=== PATIENT | female | born 1975 | race Caucasian/White ===

== ENCOUNTER → 2017-11-18 12:19 | Outpatient (CLI) | payer MEDICARE, MEDICAID, SELFPAY ==
[2017-11-18 12:57] LABS: Basophils % 0.6 % (0.1-2.0); Eosinophils # 0.1 K/mm3 (0.0-0.4); Eosinophils % 1.3 % (0.1-12.0); Hemoglobin 12.8 g/dL (12.2-16.2); Lymphocytes % 31.5 K/mm3 (10-50); Mean Corpuscular HGB Conc 32.9 g/dL (31.8-35.4); Mean Corpuscular Hemoglobin 31.6 pg (27.0-31.2); Mean Corpuscular Volume 95.9 fl (81-99); Mean Platelet Volume 7.4 fl (7.4-10.4); Monocytes # 0.3 K/mm3 (0.1-1.0); Monocytes % 4.9 % (1.7-9.3); Neutrophils # 3.8 K/mm3 (1.8-7.8); Neutrophils % 61.8 % (37.0-80.0); Platelet Count 313 K/mm3 (142-424); Red Blood Count 4.07 M/mm3 (4.20-5.40); Red Cell Distribution Width 12.3 % (11.5-17.5); White Blood Count 6.2 K/mm3 (4.8-10.8)
[2017-11-18 14:02] LABS: Erythrocyte Sedimentation Rate 9 mm/hr (0-20)
[2017-11-18 14:24] LABS: Alanine Aminotransferase 25 U/L (12-78); Albumin Level 3.9 gm/dL (3.4-5.0); Alkaline Phosphatase 68 U/L (46-116); Anion Gap 12.5 mEq/L (5-15); Aspartate Amino Transferase 13 U/L (15-37); Bilirubin,Direct 0.1 mg/dL (0.0-0.2); Bilirubin,Indirect 0.2 mg/dL (0.0-0.9); Bilirubin,Total 0.3 mg/dL (0.2-1.0); Blood Urea Nitrogen 10 mg/dL (7-18); Calcium 9.3 mg/dL (8.5-10.1); Carbon Dioxide 29 mmol/L (21.0-32.0); Chloride 105 mmol/L (98-107); Chol/HDL Ratio 2.6 (1-3.5); Cholesterol 161 mg/dL (140-200); Creatinine,Serum 0.69 mg/dL (0.55-1.02); Estimated Glomerular Filt Rate 94 ml/min (>60); Free Thyroxine Index 2.8 ug/dL (5.93-13.13); GFR (African American) 113 ML/MIN (>60); Glucose 88 mg/dL (74-106); HDL Cholesterol 63 mg/dL (29-89); Potassium 4.5 mmoL/L (3.5-5.1); Sodium 142 mmol/L (136-145); T4 (Thyroxine) 8.5 ug/dl (4.7-13.3); Thyroid Stimulating Hormone 1.09 uIU/ml (0.358-3.740); Total Protein,Serum 7.2 gm/dL (6.4-8.2); Triiodothryronine (T3) Uptake 33 % (31-39); Uric Acid 3.1 mg/dL (2.6-7.2)
[2017-11-18 14:51] LABS: LDL Cholesterol 82 mg/dL (0-130); Triglycerides 80 mg/dL (30-200); VLDL Cholesterol 16 mg/dL (0-40)
[2017-11-19 13:12] LABS: Antichromatin Antibodies <0.2 AI (0.0-0.9); RNP Antibodies <0.2 AI (0.0-0.9); Sjogren's Anti-SS-A <0.2 AI (0.0-0.9); Sjogren's Anti-SS-B <0.2 AI (0.0-0.9)
[2017-11-20 13:20] LABS: Anti-DNA (DS) Ab Qn 1 IU/mL (0-9); RA Latex Turbid. 20.3 IU/mL (0.0-13.9)
[2017-11-20 13:21] LABS: Antinuclear Antibodies, IFA Negative (.)
== END ==
PROVIDERS: PCP Internal Medicine; Visit Provider Physician Assistant
DX: I25.110 Atherosclerotic heart disease of native coronary artery with unstable angina pectoris (principal); F17.200 Nicotine dependence, unspecified, uncomplicated; I10 Essential (primary) hypertension; R06.09 Other forms of dyspnea; R42 Dizziness and giddiness; R51 Headache; R94.31 Abnormal electrocardiogram [ECG] [EKG]; M06.9 Rheumatoid arthritis, unspecified
CPT/HCPCS: 36415; 80048; 80061; 80076; 84436; 84443; 84479; 84550; 85025; 85651; 86038; 86225; 86235; 86431

== ENCOUNTER → 2017-11-30 10:49 | Outpatient (CLI) | payer MEDICARE, MEDICAID, SELFPAY ==
--- NOTE | 2017-11-30 10:53 | CA_ITS ---
PROCEDURE: 2-D M-mode and color Doppler study INDICATIONS FOR THE TEST: Chest pain+ COPD Heart Murmur Tobacco Smoking+ Palpitations+ Fatigue+ Syncope Edema+ Hypertension+Diabetes Mellitus Rheumatic Fever SOB+VALDIVIA+Obesity Hyperlipidemia Family History HD+ Additional History dizziness, cad, Abn EKG PATIENT INFORMATION HEIGHT: 62 WEIGHT: 135 GENDER: Female B/P: 109/46 2-D/M-MODE INTERPRETATION: 2-D MEASUREMENTS OBSERVED VALUES IN CMS Right Ventricular Dimension (RVDd) 2.0 Interventricular Septum (Thickness)(IVsd) 0.8 Left Ventricular Internal Dimensions(LVIDd) 3.8 Left Ventricular Posterior Wall (Thickness)(LVPWd) 0.8 Aortic Root 2.3 Aortic Cusp Separation 1.8 Left Atrial Dimensions (LAD) 2.8 2D 1. Left atrium is normal size, left ventricle is normal size, there is no concentric left ventricular hypertrophy, visually estimated ejection fraction 55% with no regional wall motion abnormality. 2. The right atrium and right ventricle are normal size and contractility. 3. The aortic, mitral and tricuspid valvular grossly normal. 4. The pulmonic valve is poorly visualized. 5. No significant pericardial effusion noted. DOPPLER INTERROGATION: Doppler interrogation of the aortic, mitral and tricuspid valvular presence of mild mitral and tricuspid regurgitation, tricuspid regurgitation jet velocity is insufficient for calculation of the right ventricular systolic pressure, diastolic parameters are within normal range. CONCLUSION: 1. Normal left ventricular size, preserved left ventricular systolic function, visually estimated ejection fraction 55% with no regional wall motion abnormality, diastolic parameters are within normal range. 2. Mild mitral and tricuspid regurgitation 3. No significant pericardial effusion noted.
--- NOTE | 2017-11-30 10:54 | XR_ITS ---
XR hand RT min 3V HISTORY: Posttraumatic pain ITS.REASON: RT HAND INJURY WITH PAIN ORDERING PHYSICIAN: Eyal Matute MD PATIENT AGE: 42 years COMPARISON: 04/21/2011 FINDINGS: No fracture or dislocation. No lytic or blastic change. There is normal mineralization.. The joint spaces are well-preserved. No significant degenerative/arthritic changes. No erosive changes evident.. A small calcific density is present along the ulnar aspect of the DIP joint of the third digit. This was present on the previous study and may represent an old avulsion injury. IMPRESSION: No acute finding
== END ==
PROVIDERS: PCP Internal Medicine; Visit Provider Internal Medicine
DX: F17.200 Nicotine dependence, unspecified, uncomplicated (principal); I10 Essential (primary) hypertension; I20.9 Angina pectoris, unspecified; I25.110 Atherosclerotic heart disease of native coronary artery with unstable angina pectoris; R06.09 Other forms of dyspnea; R42 Dizziness and giddiness; R51 Headache; R94.31 Abnormal electrocardiogram [ECG] [EKG]
CPT/HCPCS: 73130; 93306

== ENCOUNTER → 2018-04-02 15:33 | Outpatient (CLI) | payer MEDICARE, MEDICAID, SELFPAY ==
--- NOTE | 2018-04-02 15:36 | MR_ITS ---
MR shoulder RT wo con CLINICAL INDICATION: Severe right shoulder pain with limited range of motion ITS.REASON: RIGHT ROTATOR CUFF TEAR ORDERING PHYSICIAN: Aime Atkinson PATIENT AGE: 42 years Comparison: None TECHNIQUE: Multiplanar multiecho sequences performed without contrast. FINDINGS: There is mild acromioclavicular arthropathy with hypertrophic changes of the acromioclavicular joint and subacromial stenosis. There is complete tear of the supraspinatus tendon with mild retraction and atrophy of the musculotendinous fibers. Fibers are retracted by approximately 16 mm in the mid to posterior aspect of the supraspinatus tendon. There may be a few intact fibers anteriorly. This however is questionable. There is also complete tear of the infraspinatus tendon with retraction of the musculotendinous fibers. Subcortical cystic changes involving the greater tuberosity. The subscapularis and teres minor tendons appear intact. The humeral head is slightly high writing within the glenoid fossa. Bicipital tendon is in place. A small amount fluid is present within the bicipital tendon sheath. No obvious labral tear. There is a small shoulder joint effusion. Small amount fluid is present in the infraclavicular region. IMPRESSION: 1. Complete tear of the supraspinatus and infraspinatus tendons with mild retraction of the musculotendinous fibers. 2. Fluid in the bicipital tendon sheath suggesting tendinitis 3. Small shoulder joint effusion
== END ==
PROVIDERS: PCP Internal Medicine; Visit Provider Internal Medicine
DX: M75.101 Unspecified rotator cuff tear or rupture of right shoulder, not specified as traumatic (principal)
CPT/HCPCS: 73221

== ENCOUNTER → 2018-04-19 10:40 | Outpatient (POV) | payer MEDICARE, MEDICAID, SELFPAY ==
--- NOTE | 2018-04-19 13:09 | XR_ITS ---
XR shoulder RT min 2V HISTORY: ITS.REASON: Rt shoulder pain ORDERING PHYSICIAN: Jaimie Bradford PATIENT AGE: 43 years Comparison: 04/02/2018 FINDINGS: No fracture or dislocation. No lytic or blastic change. There is normal mineralization. The joint spaces are well-preserved. Minimal cortical irregularity noted involving the humeral head at the greater tuberosity and may be seen with rotator cuff disease IMPRESSION: Cortical irregularity humeral head at the greater tuberosity which may be seen with rotator cuff disease otherwise negative
--- NOTE | 2018-04-19 13:09 | XR_ITS ---
XR ankle wt bearing LT min 3V HISTORY: ITS.REASON: foot and ankle pain ORDERING PHYSICIAN: Jamiie Bradford PATIENT AGE: 43 years Comparison: None FINDINGS: No fracture or dislocation. No lytic or blastic change. There is normal mineralization.. The joint spaces are well-preserved. No significant degenerative/arthritic changes. No erosive changes evident. IMPRESSION: Negative ankle, no acute finding
--- NOTE | 2018-04-19 13:09 | XR_ITS ---
XR foot wt bearing LT 3V HISTORY: ITS.REASON: foot and ankle pain ORDERING PHYSICIAN: Jaimie Bradford PATIENT AGE: 43 years COMPARISON: None FINDINGS: No fracture or dislocation. No lytic or blastic change. There is normal mineralization.. The joint spaces are well-preserved. No significant degenerative/arthritic changes. No erosive changes evident. There is flexion of the fourth and fifth toes at the distal phalanx IMPRESSION: No acute finding. Flexion of the fourth and fifth toes
--- NOTE | 2018-04-19 13:09 | XR_ITS ---
XR foot wt bearing RT 3V HISTORY: ITS.REASON: foot and ankle pain ORDERING PHYSICIAN: Jaimie Bradford PATIENT AGE: 43 years COMPARISON: None FINDINGS: No fracture or dislocation. No lytic or blastic change. There is normal mineralization.. The joint spaces are well-preserved. No significant degenerative/arthritic changes. No erosive changes evident. IMPRESSION: Negative, no acute finding
--- NOTE | 2018-04-19 13:09 | XR_ITS ---
XR ankle wt bearing RT min 3V HISTORY: ITS.REASON: foot and ankle pain ORDERING PHYSICIAN: Jaimie Bradford PATIENT AGE: 43 years Comparison: None FINDINGS: No fracture or dislocation. No lytic or blastic change. There is normal mineralization.. The joint spaces are well-preserved. No significant degenerative/arthritic changes. No erosive changes evident. IMPRESSION: Negative ankle, no acute finding
== END ==
PROVIDERS: PCP Internal Medicine; Visit Provider Nurse Practitioner Acute Care
DX: M25.579 Pain in unspecified ankle and joints of unspecified foot (principal); M79.671 Pain in right foot; M79.672 Pain in left foot; M25.511 Pain in right shoulder
CPT/HCPCS: 73030; 73610; 73630

== ENCOUNTER → 2018-06-15 06:23 | Outpatient (CLI) | payer MEDICARE, MEDICAID, SELFPAY ==
--- NOTE | 2018-06-15 06:28 | CA_ITS ---
PROCEDURE: 2-D M-mode and color Doppler study INDICATIONS FOR THE TEST: Chest pain X COPD Heart Murmur Tobacco SmokingX Palpitations Fatigue Syncope EdemaX HypertensionXDiabetes Mellitus Rheumatic Fever SOBXDOE Obesity Hyperlipidemia Family History HDX Additional History PRE OP EVAL PATIENT INFORMATION HEIGHT: 62 WEIGHT:134 GENDER: Female B/P:137/75 2-D/M-MODE INTERPRETATION: 2-D MEASUREMENTS OBSERVED VALUES IN CMS Right Ventricular Dimension (RVDd) 1.0 Interventricular Septum (Thickness)(IVsd) .9 Left Ventricular Internal Dimensions(LVIDd) 5.0 Left Ventricular Posterior Wall (Thickness)(LVPWd) .9 Aortic Root 3.0 Aortic Cusp Separation 1.2 Left Atrial Dimensions (LAD) 2.5 2D 1. Left atrium is qualitatively mildly enlarged, left ventricle is normal size, mild concentric left ventricular hypertrophy, visually estimated ejection fraction 55% with no regional wall motion abnormality. 2. The right atrium and right ventricle are normal size and contractility. 3. The aortic valve is minimally thickened and fibrosed. 4. The mitral and tricuspid valve are grossly normal. 5. The pulmonic valve is poorly visualized. 6. No significant pericardial effusion noted. DOPPLER INTERROGATION: Doppler interrogation of the aortic, mitral and tricuspid valvular presence of mild mitral and tricuspid regurgitation, tricuspid regurgitation jet velocity is inadequate for calculation of the right ventricular systolic pressure, grade 1 diastolic dysfunction seen without tissue Doppler evidence of raised left atrial pressure, inferior vena cava is normal size with normal inspiratory collapse. CONCLUSION: 1. Normal left ventricular size, mild concentric left ventricular hypertrophy, visually estimated ejection fraction 55% with no regional wall motion abnormality, grade 1 diastolic dysfunction seen without tissue Doppler evidence of raised left atrial pressure. 2. Mild mitral and tricuspid regurgitation, tricuspid regurgitation jet velocity is inadequate for calculation of the right ventricular systolic pressure, inferior vena cava is normal size with normal inspiratory collapse. 3. No significant pericardial effusion noted.
--- NOTE | 2018-06-15 06:31 | NM_ITS ---
CARDIOLITE SPECT MYOCARDIAL PERFUSION LEXISCAN, REST AND STRESS: History: Coronary artery disease, hypertension, tobacco use, family history, chest pain, shortness of breath and fatigue Procedure: Patient received a 0.4 mg of intravenous Lexiscan, resting heart rate was 60 bpm resting blood pressure 133/68, with Lexiscan maximum heart rate achieved was 88 bpm is less than 85% of the maximum predicted heart rate and a blood pressure was 115/53. With Lexiscan patient complained of chest pressure Electrocardiogram: Resting electrocardiogram showed sinus rhythm, with Lexiscan there is less than 1.[address] segment depression noted from the baseline EKG. The EKG portion of the Lexiscan Myoview is nondiagnostic. Cardiac stress and resting SPECT images: Cardiac stress and the suspect images were obtained using technetium 99 Myoview 31.4 mCi stress and 9.9 mCi at rest , gated SPECT further analysis of segmental wall motion and calculation of the ejection fraction also done. Cardiac stress and resting SPECT images show decreased tracer activity in the anterior and anteroseptal area. Some the resting images suggestive of reversible, computer derived ejection fraction is 61% with no regional wall motion abnormality, right ventricle with normal contractility. Conclusion: 1. The EKG portion of the Lexiscan Myoview is nondiagnostic. 2. Scintigraphic evidence of mild reversible ischemia involving the anterior and anteroseptal wall. Computer derived ejection fraction is 61% with no regional wall motion abnormality, right ventricle is normal size and contractility. 3. Abnormal Lexiscan Myoview study.
--- NOTE | 2018-06-15 07:40 | HMH.ITSHM ---
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 []NEXIUM LEXAPRO ASA LOSARTAN CORTALINE CLONAZEPAM BISOPROLOL HYDROCO/APAP ANPHETAMINE FUROSEMIDE
== END ==
PROVIDERS: PCP Internal Medicine; Visit Provider Internal Medicine
DX: F17.200 Nicotine dependence, unspecified, uncomplicated (principal); I10 Essential (primary) hypertension; I25.110 Atherosclerotic heart disease of native coronary artery with unstable angina pectoris; R06.09 Other forms of dyspnea; R07.89 Other chest pain; R20.0 Anesthesia of skin; R20.2 Paresthesia of skin; R42 Dizziness and giddiness; R60.9 Edema, unspecified; R94.31 Abnormal electrocardiogram [ECG] [EKG]; Z01.818 Encounter for other preprocedural examination
CPT/HCPCS: 78452; 93017; 93306; A9502; J2785

== ENCOUNTER 2019-08-18 15:09 | Emergency (ER) | payer MEDICARE, MEDICAID, SELFPAY ==
[2019-08-18 15:10] VITALS: BP 131/72; PULSE 92; RESP 22; TEMP 36.6; O2SAT 98; BMI 22.1
--- NOTE | 2019-08-18 15:17 | XR_ITS ---
PROCEDURE: XR CHEST PORTABLE CLINICAL HISTORY: chest pain Chest pain, smoker COMPARISON: CXR CHEST(2 VIEWS-NOT PORTABLE) from 07/30/2015 XR CHEST 2V from 03/25/2019 FINDINGS: The cardiomediastinal silhouette and pulmonary vascularity are within normal limits. The lungs are clear without infiltrates, suspicious nodules, or pleural effusions. There are mild degenerative changes in the shoulders IMPRESSION: No acute findings. Dictated by: Campos Galicia MD 08/18/2019 15:58 Electronically signed by Campos Galicia MD in [place] 08/18/2019 15:58
[2019-08-18 15:30] VITALS: BP 117/87; PULSE 82; O2SAT 100
[2019-08-18 15:30] LABS: Basophils # 0.1 K/mm3 (0-0.2); Basophils % 0.8 % (0.1-2.0); Eosinophils # 0.2 K/mm3 (0.0-0.4); Eosinophils % 1.1 % (0.1-12.0); Hematocrit 40.2 % (37.0-47.0); Hemoglobin 13.4 g/dL (12.2-16.2); Lymphocytes # 4.4 K/mm3 (0.7-4.5); Lymphocytes % 31.8 % (10-50); Mean Corpuscular HGB Conc 33.4 g/dL (31.8-35.4); Mean Corpuscular Volume 98.7 fl (81-99); Mean Platelet Volume 7.1 fl (7.4-10.4); Monocytes # 0.9 K/mm3 (0.1-1.0); Monocytes % 6.2 % (1.7-9.3); Neutrophils # 8.2 K/mm3 (1.8-7.8); Neutrophils % 60.1 % (37.0-80.0); Platelet Count 379 K/mm3 (142-424); Red Blood Count 4.08 M/mm3 (4.20-5.40); Red Cell Distribution Width 13.2 % (11.5-17.5); White Blood Count 13.7 K/mm3 (4.8-10.8)
[2019-08-18 15:31] LABS: Anion Gap 11.5 mEq/L (5-15); Blood Urea Nitrogen 9 mg/dl (7-17); Calcium 9.8 mg/dl (8.4-10.2); Carbon Dioxide 28 mmol/L (22.0-30.0); Chloride 96 mmol/L (98-107); Creatinine Clearance Estimated 93 mL/min (50-200); Estimated Glomerular Filt Rate 91 ml/min (>60); GFR (African American) 111 ML/MIN (>60); Glucose 91 mg/dl (74-100); Potassium 3.5 mmoL/L (3.5-5.1); Sodium 132 mmol/L (136-145)
[2019-08-18 15:44] LABS: Troponin I < 0.01 ng/ml (0.00-0.034)
--- NOTE | 2019-08-18 15:47 | ECG_ITS ---
APPROVED REPORT Exam: Resting ECG HR:92 bpm ECG Measurements Heart Rate 92 AXES UT 144 P 78 QRSd 84 QRS 43 QT 386 T 69 QTc 477 <Conclusion> Normal sinus rhythm Normal ECG Electronically signed by : Reji Moyer, 08/21/2019 07:15:51
--- NOTE | 2019-08-18 15:48 | PC.NURSE ---
Rad at bedside
--- NOTE | 2019-08-18 16:02 | HMH.EDCP ---
ED Disposition Clinical Impression: Stable angina Disposition: Home, Self-Care Condition on Discharge: Good Additional Instructions: Please follow-up with Dr. Matute in his office. Referrals: Aime Atkinson [Primary Care Provider] - - Critical Care Critical Care Time: No Attestation: On 08/18/19, the high probability of a clinically significant, sudden or life threatening deterioration of the following system(s) required my full and direct attention, intervention and personal management. The time I documented below is in addition to time spent performing reported procedures but includes the following listed in this critical care notation. Medical Decision Making - Medical Records Medical records reviewed: Yes: I reviewed the patient's medical records. - Gen Inquiry Pt receiving controlled substance: No Vital Signs: 08/18/19 15:10 08/18/19 15:30 08/18/19 16:10 Temperature 98 F Temperature Source Oral Pulse Rate [Left Radial] 92 H 82 89 Respiratory Rate 22 Blood Pressure [Right Arm] 131/72 117/87 116/56 L Blood Pressure Mean [Right Arm] 91 97 76 Blood Pressure Source [Right Arm] Automatic Cuff Automatic Cuff Blood Pressure Position [Right Arm] Sitting Sitting 02 Sat by Pulse Oximetry 98 100 100 Oxygen Delivery Method Room Air Room Air Room Air - Lab Data Lab results reviewed: Yes: I reviewed the patient's lab results. Lab Results 08/18/19 15:10: WBC 13.7 H, RBC 4.08 L, Hgb 13.4, Hct 40.2, MCV 98.7, MCH 33.0 H, MCHC 33.4, RDW 13.2, Plt Count 379, MPV 7.1 L, Neut % (Auto) 60.1, Lymph % (Auto) 31.8, [place] % (Auto) 6.2, Eos % (Auto) 1.1, Baso % (Auto) 0.8, Neut # (Auto) 8.2 H, Lymph # (Auto) 4.4, [place] # (Auto) 0.9, Eos # (Auto) 0.2, Baso # (Auto) 0.1 08/18/19 15:10: Sodium 132 L, Potassium 3.5, Chloride 96 L, Carbon Dioxide 28, Anion Gap 11.5, BUN 9, Creatinine 0.70, Estimated Creat Clear 93, Estimated GFR 91, Est GFR ( Amer) 111, Glucose 91, Calcium 9.8, Troponin I < 0.01 Result diagrams: 08/18/19 15:10 08/18/19 15:10 Orders (Tests/Meds): ED MEDICATIONS Discontinued Medications Generic Name Dose Route Start Last Admin Trade Name Bry PRN Reason Stop Dose Admin Aspirin 324 mg 08/18/19 15:18 08/18/19 15:25 Aspirin 81mg Chewable Tablet PO 08/18/19 15:19 324 mg ONCE ONE Administration ORDERS Category Date Time Status Troponin I Q3H Lab 08/18/19 18:30 Ordered Troponin I Q3H Lab 08/18/19 21:30 Ordered - Radiology Data #1 Image(s): Chest Preliminary Findings: Normal/NAD - ECG Data Tracing #1 I reviewed this ECG and interpreted as documented below: Normal Sinus Rhythm: Yes - CECY Score for Non-Stemi Age of Patient: 40-49 years old Heart Rate: 90-109 bpm Systolic Blood Pressure: <80 mmHg Serum Creatinine: 0.40-0.79 mg/dl CHF [place] Class: I-No CHF Other Risk Factors: None Non-Stemi Risk Score: 102 Risk Stratification: 1-108 = Low Risk Chest Pain HPI - General Chief Complaint: Chest Pain Stated Complaint: chest pain Time Seen by Provider: 08/18/19 16:00 Mode of Arrival: Ambulatory Source of Information: Patient Limitations: No Limitations Description of Symptoms (Recalled from ER Triage Doc. by RN): to ed per pvt car with c/o chest pressure since march. states I feel like my heart is racing and is going to beat out of my chest pt states has not seen MD for this due to insurance issues. pt c/o sob, nausea, states pain radiates to rt arm down to rt leg and toes. pt states pain worse with exertion and gets some relief with rest. pt appears anxious - History of Present Illness HPI narrative: 44-year-old female presents the ED with recurring chest pain. She states that the chest pains been going on for last 2 to 3 weeks. She also states that the pain is substernal and does not radiate. Patient also states that she did not complain of any shortness of breath or diaphoresis. She rates her pain 4 out of 10 describes a heaviness or
[2019-08-18 16:10] VITALS: BP 116/56; PULSE 89; O2SAT 100
--- NOTE | 2019-08-18 16:14 | PC.NURSE ---
Called for Dr. Carvajal, He is in a room per staff and will return call.
--- NOTE | 2019-08-18 16:41 | PC.NURSE ---
pt up to bathroom unsteady on feet.
--- NOTE | 2019-08-18 16:42 | PC.NURSE ---
Pt returned from [facility] and is reviewing med list at this time.
--- NOTE | 2019-08-18 16:46 | PC.NURSE ---
Dr Siegel speaking with Dr Carvajal
[2019-08-18 17:24] VITALS: BP 115/74; PULSE 78; RESP 16; TEMP 36.6; O2SAT 98
== END 2019-08-18 17:26 | disposition home or self-care (01) ==
PROVIDERS: Emergency Provider Family Medicine; PCP Internal Medicine
DX: I20.8 Other forms of angina pectoris (principal); F41.8 Other specified anxiety disorders; I25.10 Atherosclerotic heart disease of native coronary artery without angina pectoris; K21.9 Gastro-esophageal reflux disease without esophagitis; I10 Essential (primary) hypertension; M79.7 Fibromyalgia; F17.210 Nicotine dependence, cigarettes, uncomplicated; Z88.8 Allergy status to other drugs, medicaments and biological substances; Z79.899 Other long term (current) drug therapy
CPT/HCPCS: 71045; 80048; 84484; 85025; 93005; 99284

== ENCOUNTER → 2019-10-14 09:55 | Outpatient (CLI) | payer MEDICARE, OTHER, SELFPAY ==
--- NOTE | 2019-10-14 09:59 | CT_ITS ---
PROCEDURE: CT ABDOMEN PELVIS WO/W CON CLINICAL INDICATION: RUQ PAIN,HEMANGIOMA PROTOCOL Right upper quadrant pain, history of liver lesions COMPARISON: ABDPELW/WO CT ABD PELVIS W/WO CONTRAST from 01/08/2016 TECHNIQUE: IV Contrast: 75ML OPTIRAY 350 Oral Contrast None Axial images obtained with sagittal and coronal reformats. All CT scans at the facility use one or more dose reduction, viz: automated exposure control, ma/kV adjustment per patient size (including targeted exams where dose is matched to indication, i.e. head), or iterative reconstruction technique. FINDINGS: Exam is performed with meningioma protocol without and with contrast with dynamic imaging. Lung bases are clear. A 3 cm hypoattenuating lesion is present in the left hepatic lobe superiorly. An 8 mm hypodense lesion is present in the junction of the left and right hepatic lobe superiorly the margin of the largest lesion is somewhat irregular and there is some questionable minimal nodular peripheral enhancement. The lesions become less apparent over time consistent with hemangiomas overall not significantly changed. No new lesions are evident. The spleen, adrenal glands, pancreas, and kidneys have an unremarkable appearance. The stomach appears thickened but may be due to nondistention. No intestinal obstruction or free air. No evidence of appendicitis seen or diverticulitis. No intestinal obstruction or free air. There are post hysterectomy changes. There is a small amount fluid in the right aspect of the pelvis. No acute bony anomalies. IMPRESSION: 1. Overall no significant change with no acute finding. 2. No change in the 2 hepatic lesions consistent with hemangiomas. Dictated by: Campos Galiica MD 10/15/2019 08:19 Electronically signed by Campos Galicia MD in [place] 10/15/2019 08:19
== END ==
PROVIDERS: PCP Internal Medicine; Visit Provider Internal Medicine
DX: R10.11 Right upper quadrant pain (principal); D18.00 Hemangioma unspecified site
CPT/HCPCS: 74178; Q9967

== ENCOUNTER → 2019-12-14 10:37 | Outpatient (CLI) | payer MEDICARE, OTHER, SELFPAY ==
--- NOTE | 2019-12-14 10:38 | CA_ITS ---
APPROVED REPORT EXAM: Comprehensive 2D, Doppler, and color-flow Echocardiogram Machinist Helper Marine: Yoly Byrne RVT Ht: 5 ft 2 in Wt: 132lbs BSA: 1.60 BP: 129/58 mmHg Indications: SOA,HTN,VALDIVIA,SMOKER,FATIGUE,CAD 2D Dimensions LVOT 2.07 cm (M/F) 1.5-2.5 M-Mode Dimensions RVDd 1.94 cm (0.9-2.6) LVDd 3.65 cm (3.5-5.7) LVDs 2.18 cm (3.5-5.7) IVSd 1.04 cm (0.6-1.1) PWd 0.59 cm (0.6-1.1) EF (Teich) 71.90% FS 40.30% EDV (Teich) 56.30 mL ESV (Teich) 15.80 mL LV Diastology E/A Ratio 1.14 Mitral Valve MV A Velocity 77.00 (40-130 cm/s) Left Ventricle Jese is normal size, left ventricle is normal size, there is no concentric left ventricular hypertrophy, visually estimated ejection fraction 55% with no regional wall motion abnormality. Diastolic parameters are within normal range. Right Ventricle Right atrium and right ventricle are normal size and contractility. Aortic Valve Aortic valve is grossly normal. There is no aortic stenosis or aortic insufficiency. Mitral Valve Mitral valve is grossly normal, there is trace mitral regurgitation. Tricuspid Valve Tricuspid valve is grossly normal, there is trace tricuspid regurgitation. Pulmonic Valve Pulmonic valve is poorly visualized. Great Vessels Aortic root is normal size. Pericardium No significant pericardial effusion noted. Conclusion 1. Normal left ventricular size, preserved left ventricular systolic function. Visually estimated ejection fraction 55% with no regional wall motion abnormality, diastolic parameters are within normal range. 2. Trace mitral and tricuspid regurgitation. 3. No significant pericardial effusion noted. Electronically signed by : Slade Hand, 12/15/2019 10:37:36
== END ==
PROVIDERS: PCP Internal Medicine; Visit Provider Urology
DX: R07.9 Chest pain, unspecified; R06.09 Other forms of dyspnea; I10 Essential (primary) hypertension; I25.10 Atherosclerotic heart disease of native coronary artery without angina pectoris
CPT/HCPCS: 93306

== ENCOUNTER → 2020-01-24 09:50 | Outpatient (CLI) | payer MEDICARE, OTHER, SELFPAY ==
--- NOTE | 2020-01-24 09:57 | XR_ITS ---
PROCEDURE: XR SHOULDER LT MIN 2V CLINICAL INDICATION: LT SHOULDER PAIN,SWELLING COMPARISON: No exams were available for comparison FINDINGS: No fracture or dislocation. No lytic or blastic change. There is normal mineralization. There is superior location of the humeral head with moderate subacromial stenosis which may be seen with rotator cuff disease/tear is. There is some cortical irregularity involving the greater tuberosity of the humerus which may also be seen with rotator cuff disease. The AC joint and glenohumeral joint have an otherwise unremarkable appearance. Other findings:None. IMPRESSION: Moderate subacromial stenosis and cortical irregularity of the greater which may seen with rotator cuff disease/tear and may be confirmed with MRI if clinically desired. Dictated by: Campos Galicia MD 01/24/2020 10:32 Campos Galicia MD in [place] 01/24/2020 10:32
--- NOTE | 2020-01-24 09:58 | XR_ITS ---
PROCEDURE: XR WRIST RT MIN 3V CLINICAL INDICATION: RT WRIST PAIN, S/P FALL COMPARISON: No exams were available for comparison FINDINGS: No fracture or dislocation. No lytic or blastic change. There is normal mineralization. There are mild osteoarthritic changes of the 1st metacarpal-carpal joint. A 4 mm calcific density is present at the base of the 1st metacarpal and could represent an old fracture or ununited ossification center versus dystrophic soft tissue calcification. Other findings:None. IMPRESSION: No acute fracture. 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
== END ==
PROVIDERS: PCP Internal Medicine; Visit Provider Internal Medicine
DX: M25.512 Pain in left shoulder (principal); M25.531 Pain in right wrist
CPT/HCPCS: 73030; 73110

== ENCOUNTER → 2020-03-21 08:07 | Outpatient (CLI) | payer MEDICARE, OTHER, SELFPAY ==
--- NOTE | 2020-03-21 08:08 | CT_ITS ---
PROCEDURE: CT HEAD/BRAIN WO CON CLINICAL INDICATION: dizziness COMPARISON: CT HDWO CT HEAD W/O CONTRAST from 02/06/2015 TECHNIQUE: Axial images obtained. All CT scans at the facility use one or more dose reduction, viz: automated exposure control, ma/kV adjustment per patient size (including targeted exams where dose is matched to indication, i.e. head), or iterative reconstruction technique. FINDINGS: No midline shift, mass effect, intracranial hemorrhage, hydrocephalus, or extra-axial fluid collection is evident. The calvarium has an unremarkable appearance. No mastoid effusion. No sinus air-fluid level. IMPRESSION: No acute intracranial finding Dictated by: Dr. Alexandru Noel MD 03/21/2020 09:09 Dr. Alexandru Noel MD in [place] 03/21/2020 09:09
--- NOTE | 2020-03-21 08:27 | CA_ITS ---
APPROVED REPORT Concession Cashier: Yoly Byrne RVT Laterality: Bilateral Study Quality: Good Indications: dizziness Risk Factors Hypertension: Smoking Doppler Spectral Velocity Analysis ECA (R) 83.40/16.00 cm/s ECA (L) 71.60/21.40 cm/s dICA (R) 124.00/52.40 cm/s dICA (L) 118.70/46.00 cm/s Cruz (R) 97.30/40.60 cm/s Cruz (L) 154.00/52.40 cm/s pICA (R) 100.50/39.60 cm/s pICA (L) 165.70/31.00 cm/s dCCA (R) 95.20/28.90 cm/s pCCA (L) 116.60/34.20 cm/s pCCA (R) 115.50/24.60 cm/s Vert (L) 58.80/23.50 cm/s Vert (R) 35.30/9.60 cm/s ICA/CCA 1.42 ICA/CCA 1.30 Findings Study suggests less than 20% stenosis of the right internal cartoid artery. Study suggests 20-49% stenosis of the left internal cartoid artery. Antegrade flow seen bilateral vertebral arteries. Conclusion Study suggests less than 20% stenosis of the right internal cartoid artery. Study suggests 20-49% stenosis of the left internal cartoid artery. Antegrade flow seen bilateral vertebral arteries. Electronically signed by : Farshad Roberts MD 03/22/2020 09:00:36
== END ==
PROVIDERS: PCP Internal Medicine; Visit Provider Nurse Practitioner Family
DX: F17.200 Nicotine dependence, unspecified, uncomplicated (principal); I10 Essential (primary) hypertension; I25.118 Atherosclerotic heart disease of native coronary artery with other forms of angina pectoris; M35.00 Sjogren syndrome, unspecified; R06.09 Other forms of dyspnea; R42 Dizziness and giddiness
CPT/HCPCS: 70450; 93880

== ENCOUNTER → 2020-03-27 10:30 | Outpatient (CLI) | payer MEDICARE, OTHER, SELFPAY | PROVIDERS: PCP Internal Medicine; Visit Provider Urology | DX: F17.200 Nicotine dependence, unspecified, uncomplicated (principal); I10 Essential (primary) hypertension; I25.10 Atherosclerotic heart disease of native coronary artery without angina pectoris; M35.00 Sjogren syndrome, unspecified; R06.00 Dyspnea, unspecified; R42 Dizziness and giddiness | CPT/HCPCS: 93270 ==

== ENCOUNTER → 2020-03-29 10:17 | Outpatient (CLI) | payer MEDICARE, OTHER, SELFPAY ==
--- NOTE | 2020-03-29 10:19 | US_ITS ---
APPROVED REPORT Exam Type: Ankle to Brachial Index Indications Claudication: Bilaterally Rest Pain: Bilaterally Current Smoker Risk Factors Hypertension CAD TIA/CVA History Pressures/Indices Right Indices Left Indices Brachial 156.00 mmHg Brachial 163.00 mmHg Low Thigh 159.00 mmHg 0.98 Low Thigh 159.00 mmHg 0.98 Calf 177.00 mmHg 1.09 Calf 177.00 mmHg 1.09 Ankle(PT) 166.00 mmHg 1.02 Ankle(PT) 174.00 mmHg 1.07 Ankle(DP) 168.00 mmHg 1.03 Ankle(DP) 173.00 mmHg 1.06 Digit 102.00 mmHg 0.63 Digit 123.00 mmHg 0.75 Findings RT RENÉ=1.0 LT RENÉ=1.1 RT TBI=0.6 LT TBI=0.8 Abnormal waveforms distally Normal pulses Conclusion RT RENÉ=1.0 LT RENÉ=1.1 RT TBI=0.6 LT TBI=0.8 Abnormal waveforms distally Normal pulses, Normal RENÉ Electronically signed by : Campos Galicia MD 03/29/2020 18:01:55
== END ==
PROVIDERS: PCP Internal Medicine; Visit Provider Urology
DX: F17.200 Nicotine dependence, unspecified, uncomplicated (principal); I10 Essential (primary) hypertension; I25.10 Atherosclerotic heart disease of native coronary artery without angina pectoris; I73.9 Peripheral vascular disease, unspecified; M35.00 Sjogren syndrome, unspecified; R06.00 Dyspnea, unspecified; R42 Dizziness and giddiness
CPT/HCPCS: 93923

== ENCOUNTER → 2020-04-17 10:35 | Outpatient (CLI) | payer MEDICARE, OTHER, SELFPAY ==
[2020-04-17 11:41] LABS: Basophils # 0.1 K/mm3 (0-0.2); Basophils % 0.5 % (0.1-2.0); Eosinophils # 0.1 K/mm3 (0.0-0.4); Eosinophils % 0.5 % (0.1-12.0); Hematocrit 39.3 % (37.0-47.0); Hemoglobin 12.7 g/dL (12.2-16.2); Lymphocytes # 4.1 K/mm3 (0.7-4.5); Lymphocytes % 30.1 % (10-50); Mean Corpuscular HGB Conc 32.4 g/dL (31.8-35.4); Mean Corpuscular Hemoglobin 32.4 pg (27.0-31.2); Mean Corpuscular Volume 99.9 fl (81-99); Mean Platelet Volume 7.4 fl (7.4-10.4); Monocytes # 0.8 K/mm3 (0.1-1.0); Monocytes % 6.2 % (1.7-9.3); Neutrophils # 8.5 K/mm3 (1.8-7.8); Neutrophils % 62.7 % (37.0-80.0); Platelet Count 417 K/mm3 (142-424); Red Blood Count 3.93 M/mm3 (4.20-5.40); Red Cell Distribution Width 13.4 % (11.5-17.5); White Blood Count 13.5 K/mm3 (4.8-10.8)
[2020-04-17 13:40] LABS: Chloride 99 mmol/L (98-107); Potassium 3.9 mmoL/L (3.5-5.1); Sodium 137 mmol/L (136-145)
[2020-04-17 13:43] LABS: Anion Gap 8.9 mEq/L (5-15); Blood Urea Nitrogen 12 mg/dl (7-17); Calcium 9.7 mg/dl (8.4-10.2); Carbon Dioxide 33 mmol/L (22.0-30.0); Estimated Glomerular Filt Rate 109 ml/min (>60); GFR (African American) 132 ML/MIN (>60); Glucose 65 mg/dl (74-100)
== END ==
PROVIDERS: Visit Provider Nurse Practitioner Family
DX: R06.00 Dyspnea, unspecified; R42 Dizziness and giddiness; R00.2 Palpitations; I20.9 Angina pectoris, unspecified; R60.9 Edema, unspecified; I10 Essential (primary) hypertension; F17.200 Nicotine dependence, unspecified, uncomplicated; M35.00 Sjogren syndrome, unspecified; F41.9 Anxiety disorder, unspecified
CPT/HCPCS: 36415; 80048; 85025

== ENCOUNTER → 2020-09-11 12:07 | Outpatient (CLI) | payer MEDICARE, OTHER, SELFPAY ==
[2020-09-17 16:56] LABS: Adenovirus F 40/41, stool Not Detected (NotDetected); Astrovirus Not Detected (NotDetected); Campylobacter Not Detected (NotDetected); Clostridium Difficile A/B, PCR Not Detected (NotDetected); Cryptosporidium Not Detected (NotDetected); Cyclospora Cayetanesis Not Detected (NotDetected); Entamoeba histolytica Not Detected (NotDetected); Enteroaggregative E coli Not Detected (NotDetected); Enteropathogenic E coli Not Detected (NotDetected); Enterotoxigenic E coli Not Detected (NotDetected); Giardia lamblia Not Detected (NotDetected); Norovirus Not Detected (NotDetected); Plesimonas Shigalloides, PCR Not Detected (NotDetected); Rotavirus A Not Detected (NotDetected); Salmonella, PCR Not Detected (NotDetected); Sapovirus Not Detected (NotDetected); Shiga-like toxin E coli Not Detected (NotDetected); Shigella Enterovasive E coli Not Detected (NotDetected); Vibrio Cholerae Not Detected (NotDetected); Vibrio, PCR Not Detected (NotDetected); Yersinia Entercolitica, PCR Not Detected (NotDetected)
== END ==
PROVIDERS: Visit Provider Internal Medicine
DX: R19.7 Diarrhea, unspecified (principal)
CPT/HCPCS: 87177; 87205; 87507

== ENCOUNTER → 2020-10-08 11:01 | Outpatient (CLI) | payer MEDICARE, OTHER, SELFPAY ==
--- NOTE | 2020-10-08 11:09 | XR_ITS ---
PROCEDURE: XR HAND RT MIN 3V CLINICAL INDICATION: MUTIPLE FALLS COMPARISON: CR [id number] XR hand RT min 3V from 11/30/2017 FINDINGS: No fracture or dislocation. No lytic or blastic change. There is normal mineralization. Focal ossific fragment noted at the base of the distal phalanx of the 3rd digit, unchanged compared to prior study. The joint spaces are well-preserved. No significant degenerative/arthritic changes. No erosive changes evident. Other findings:None. IMPRESSION: No acute abnormality. Dictated by: Bhavna Kowalski 10/08/2020 12:06 Bhavna Kowalski in [place] 10/08/2020 12:06
--- NOTE | 2020-10-08 11:09 | XR_ITS ---
PROCEDURE: XR WRIST RT MIN 3V CLINICAL INDICATION: MUTIPLE FALLS COMPARISON: CR XR WRIST RT MIN 3V from 01/24/2020 FINDINGS: No fracture or dislocation. No lytic or blastic change. There is normal mineralization. The joint spaces are well-preserved. Degenerative changes are noted at the 1st CMC joint. No other significant degenerative/arthritic changes. No erosive changes evident. Other findings:None. IMPRESSION: Degenerative changes of the 1st CMC joint. No acute fractures or dislocations. Dictated by: Bhavna Kowalski 10/08/2020 12:07 Bhavna Kowalski in [place] 10/08/2020 12:07
--- NOTE | 2020-10-08 11:09 | XR_ITS ---
PROCEDURE: XR MULTIPLE SPINE 6+V CLINICAL INDICATION: MUTIPLE FALLS COMPARISON: No exams were available for comparison FINDINGS: No fracture or listhesis. No lytic or blastic change. There is normal mineralization. Degenerative changes of the thoracolumbar spine are noted with the loss of joint space and endplate sclerosis. Mild anterior osteophyte formation is noted. Minor levoscoliosis of the lumbar spine noted Other findings:Vascular calcification is noted. Otherwise the paravertebral soft tissues are unremarkable. IMPRESSION: No acute fractures or listhesis. Dictated by: Bhavna Kowalski 10/08/2020 12:09 Bhavna Kowalski in [place] 10/08/2020 12:09
--- NOTE | 2020-10-08 11:09 | XR_ITS ---
PROCEDURE: XR SHOULDER RT MIN 2V CLINICAL INDICATION: MUTIP[place] FALLS COMPARISON: CR SHOU3R [id number] VIEWS from 02/13/2014 CR SHOU3R [id number] VIEWS from 06/05/2014 CR SHOULDCMRT XR shoulder RT min 2V from 04/19/2018 CR XR SHOULDER LT MIN 2V from 01/24/2020 FINDINGS: No fracture or dislocation. No lytic or blastic change. There is normal mineralization. The joint spaces are well-preserved. No significant degenerative/arthritic changes. No erosive changes evident. Other findings:None. IMPRESSION: No acute findings. Dictated by: Bhavna Kowalski 10/08/2020 12:04 Bhavna Kowalski in [place] 10/08/2020 12:04
== END ==
PROVIDERS: PCP Internal Medicine; Visit Provider Internal Medicine
DX: M25.531 Pain in right wrist (principal); M25.511 Pain in right shoulder; M54.9 Dorsalgia, unspecified; M54.5 Low back pain; W19.XXXA Unspecified fall, initial encounter
CPT/HCPCS: 72084; 73030; 73110; 73130

== ENCOUNTER → 2020-10-25 09:39 | Outpatient (CLI) | payer MEDICARE, OTHER, SELFPAY ==
--- NOTE | 2020-10-25 09:42 | XR_ITS ---
PROCEDURE: XR DEXA AXIAL SKELETON CLINICAL HISTORY: POST MENOPAUSAL COMPARISON: No exams were available for comparison FINDINGS: The right hip BMD is 0.695 with a T-score of -1.4. The left hip BMD is 0.621 with a T-score of -2.1. The lumbar spine BMD is 1.175 with a T-score of 1.2. IMPRESSION: This patient is considered osteopenic according to the World Health Organization criteria. Bone density is between 10 and 25 percent below young normal. Fracture risk is moderate. Treatment is advised. Based on these results a follow-up exam is recommended in 2 year. Dictated by: Campos Galicia MD 10/25/2020 21:14 Campos Galicia MD in [place] 10/26/2020 14:02
== END ==
PROVIDERS: PCP Internal Medicine; Visit Provider Internal Medicine
DX: Z78.0 Asymptomatic menopausal state (principal)
CPT/HCPCS: 77080

== ENCOUNTER → 2021-01-23 07:50 | Outpatient (CLI) | payer MEDICARE, OTHER, SELFPAY ==
--- NOTE | 2021-01-23 07:51 | CA_ITS ---
APPROVED REPORT Linux System Administrator: Antionette Hernández RT(R) Laterality: Bilateral Indications: BARON, dizziness, migraines. Risk Factors Hypertension: Smoking Doppler Spectral Velocity Analysis ECA (R) 86.50/18.00 cm/s ECA (L) 112.70/28.20 cm/s dICA (R) 87.70/34.20 cm/s dICA (L) 117.90/55.10 cm/s Cruz (R) 103.70/48.10 cm/s Cruz (L) 112.70/53.00 cm/s pICA (R) 72.70/33.10 cm/s pICA (L) 132.60/61.00 cm/s dCCA (R) 94.10/32.10 cm/s dCCA (L) 93.00/31.00 cm/s pCCA (R) 111.20/26.70 cm/s pCCA (L) 99.40/32.10 cm/s Vert (R) 42.80/12.90 cm/s Vert (L) 63.10/22.50 cm/s ICA/CCA 1.10 ICA/CCA 1.54 Findings Duplex evaluation demonstrates stenosis of the right proximal internal carotid artery <20%, no change from study 03/21/20. Duplex evaluation demonstrates stenosis of the left proximal internal carotid artery in the range of 20-49% , no change from study 03/21/20. Conclusion Duplex evaluation demonstrates stenosis of the right proximal internal carotid artery <20%, no change from study 03/21/20. Duplex evaluation demonstrates stenosis of the left proximal internal carotid artery in the range of 20-49% , no change from study 03/21/20. Electronically signed by : Campos Galicia MD 01/23/2021 17:41:36
--- NOTE | 2021-01-23 07:51 | CA_ITS ---
APPROVED REPORT Respiratory Assistant: BENJAMIN Study Quality: Adequate Indications: HTN, Lupus, Diatolic dysfunction Renal Artery Doppler Origin (R) 122.3/ cm/sec Proximal (R) 127.1/ cm/sec Mid (R) 217.2/ cm/sec Distal (R) 188.9/ cm/sec Renal Aorta Ratio (R) 2.23 Segmental A. (R) / cm/sec RI: 0.65 Segmental A. Sup (R) 21.0/8.0 cm/sec Segmental A. Mid (R) 26.0/9.0 cm/sec Segmental A. Inf (R) 21.0/7.0 cm/sec Origin (L) 122.0/ cm/sec Proximal (L) 124.0/ cm/sec Mid (L) 171.4/ cm/sec Distal (L) 121.4/ cm/sec Renal Aorta Ratio (L) 1.76 Segmental A. (L) / cm/sec RI: 0.60 Segmental A. Sup (L) 23.0/9.0 cm/sec Segmental A. Mid (L) 26.0/7.0 cm/sec Segmental A. Inf (L) 24.0/10.0 cm/sec Renal Measurements Kidney Size (R) 9.9x4.8 cm Cortical Thickness (R) 1.2 cm Kidney Size (L) 9.5x5.7 cm Cortical Thickness (L) 1.4 cm Findings An attempt was made to evaluate the abdominal aorta, the right and left renal arteries and kidneys, utilizing duplex ultrasonography and color flow doppler. This was a technically difficult and therefore limited exam due to the presence of bowel gas and abdominal movement with respiration. Based on the renal/aortic ratio there is no evidence of significant stenosis in the bilateral renal arteries. Conclusion An attempt was made to evaluate the abdominal aorta, the right and left renal arteries and kidneys, utilizing duplex ultrasonography and color flow doppler. This was a technically difficult and therefore limited exam due to the presence of bowel gas and abdominal movement with respiration. Based on the renal/aortic ratio there is no evidence of significant stenosis in the bilateral renal arteries. Electronically signed by : Campos Galicia MD 01/23/2021 17:42:20
== END ==
PROVIDERS: PCP Internal Medicine; Visit Provider Physician Assistant
DX: I10 Essential (primary) hypertension (principal); R20.0 Anesthesia of skin; R20.2 Paresthesia of skin; I65.23 Occlusion and stenosis of bilateral carotid arteries
CPT/HCPCS: 93880; 93976

== ENCOUNTER → 2021-02-05 09:08 | Outpatient (CLI) | payer MEDICARE, OTHER, SELFPAY ==
--- NOTE | 2021-02-05 09:11 | XR_ITS ---
PROCEDURE: XR HIP RT 2-3V W/PELVIS CLINICAL INDICATION: RT HIP PAIN COMPARISON: CR PELAP PELVIS AP ONLY from 02/13/2014 FINDINGS: No fracture or dislocation is evident. No significant degenerative change. No lytic or blastic change. Unremarkable soft tissues. IMPRESSION: No acute findings. Dictated by: Campos Galicia MD 02/06/2021 08:20 Campos Galicia MD in [place] 02/06/2021 08:20
== END ==
PROVIDERS: PCP Internal Medicine; Visit Provider Internal Medicine
DX: M25.551 Pain in right hip (principal)
CPT/HCPCS: 73502

== ENCOUNTER → 2021-03-12 10:17 | Outpatient (CLI) | payer MEDICARE, OTHER, SELFPAY ==
--- NOTE | 2021-03-12 10:20 | MR_ITS ---
PROCEDURE: MR HIP RT WO CON CLINICAL INDICATION: LOW BACK PAIN, RIGHT POSTERIOR HIP PAIN COMPARISON: CR LS5 LUMBAR SPINE 5 VIEWS from 12/14/[address] ABDOMEN PELVIS WO/W CON from 10/14/2019 TECHNIQUE: Routine multiplanar multi echo sequences are performed without gadolinium enhancement. FINDINGS: No evidence of avascular necrosis. No fracture or dislocation. Small amount of expected fluid noted in both hip joints. On the sagittal PD images there appears to be a small defect in the anterior aspect of the labrum of the left hip. Soft tissues have an unremarkable appearance. There are small bilateral ovarian cysts 1.5 cm or less. There has been a prior hysterectomy. IMPRESSION: 1. Suspect small right anterior hip labral tear 2. Otherwise negative MRI of the right hip Dictated by: Campos Galicia MD 03/13/2021 12:40 Campos Galicia MD in [place] 03/13/2021 12:40
--- NOTE | 2021-03-12 10:20 | MR_ITS ---
PROCEDURE: MR LUMBAR SPINE WO CON CLINICAL INDICATION: LOW BACK PAIN, RIGHT POSTERIOR HIP PAIN COMPARISON: No exams were available for comparison TECHNIQUE: Standard multiplanar multiecho sequences are performed without contrast. 3-D MIP and myelographic images are also rendered and reviewed FINDINGS: Normal alignment. The spinal cord ends at the L1 level. T10-T11: Mild degenerative disc disease with minimal bulging disc. T12-L1: Mild circumferential bulging disc with anterior endplate osteophytes. Mild facet and ligamentum hypertrophy with mild bilateral lateral recess narrowing. L1-L2: Unremarkable. L2-L3: Unremarkable. L3-L4: Degenerative disc disease with bulging disc and small central disc protrusion along with facet and ligamentum hypertrophic change with mild right lateral recess narrowing. Anterior osteophytes. L4-5: Degenerative disc disease with bulging disc along with facet and ligamentum hypertrophic change with severe bilateral lateral recess and moderate bilateral foraminal narrowing. Canal stenosis. Small right paracentral broad-based disc protrusion contributing to the severe right lateral recess narrowing. There is impingement upon the L5 nerve roots bilaterally. L5-S1: Degenerative disc disease with facet and ligamentum hypertrophy. IMPRESSION: 1. T12-L1: Mild circumferential bulging disc with anterior endplate osteophytes. Mild facet and ligamentum hypertrophy with mild bilateral lateral recess narrowing. 2. L3-L4: Degenerative disc disease with bulging disc and small central disc protrusion along with facet and ligamentum hypertrophic change with mild right lateral recess narrowing. Anterior osteophytes. 3. L4-5: Degenerative disc disease with bulging disc along with facet and ligamentum hypertrophic change with severe bilateral lateral recess and moderate bilateral foraminal narrowing. Canal stenosis. Small right paracentral broad-based disc protrusion contributing to the severe right lateral recess narrowing. There is impingement upon the L5 nerve roots bilaterally. 4. L5-S1: Degenerative disc disease with facet and ligamentum hypertrophy. Dictated by: Campos Galicia MD 03/13/2021 12:32 Campos Galicia MD in [place] 03/13/2021 12:32
== END ==
PROVIDERS: PCP Internal Medicine; Visit Provider Internal Medicine
DX: M54.50 Low back pain, unspecified (principal); M25.551 Pain in right hip; M79.605 Pain in left leg; R20.0 Anesthesia of skin
CPT/HCPCS: 72148; 73721; 76376

== ENCOUNTER → 2021-05-01 17:26 | Outpatient (CLI) | payer MEDICARE, OTHER, SELFPAY ==
[2021-05-01 18:24] LABS: Basophils # 0.1 K/mm3 (0-0.2); Basophils % 0.7 % (0.1-2.0); Eosinophils # 0.1 K/mm3 (0.0-0.4); Eosinophils % 0.5 % (0.1-12.0); Hematocrit 36.5 % (37.0-47.0); Hemoglobin 11.9 g/dL (12.2-16.2); Lymphocytes # 3.5 K/mm3 (0.7-4.5); Lymphocytes % 26.9 % (10-50); Mean Corpuscular HGB Conc 32.6 g/dL (31.8-35.4); Mean Corpuscular Hemoglobin 32.8 pg (27.0-31.2); Mean Corpuscular Volume 100.4 fl (81-99); Mean Platelet Volume 8.5 fl (7.4-10.4); Monocytes # 0.8 K/mm3 (0.1-1.0); Monocytes % 6.3 % (1.7-9.3); Neutrophils # 8.5 K/mm3 (1.8-7.8); Neutrophils % 65.5 % (37.0-80.0); Platelet Count 500 K/mm3 (142-424); Red Blood Count 3.63 M/mm3 (4.20-5.40); Red Cell Distribution Width 13.7 % (11.5-17.5); White Blood Count 12.9 K/mm3 (4.8-10.8)
[2021-05-01 18:32] LABS: Alanine Aminotransferase 23 U/L (12-78); Albumin Level 4.1 g/dl (3.5-5.0); Albumin/Globulin Ratio 1.7 (1.1-1.8); Alkaline Phosphatase 66 U/L (38-126); Anion Gap 12.1 mEq/L (5-15); Aspartate Amino Transferase 28 U/L (14-36); Bilirubin,Total 0.7 mg/dl (0.2-1.3); Blood Urea Nitrogen 15 mg/dl (7-17); Calcium 9.5 mg/dl (8.4-10.2); Carbon Dioxide 27 mmol/L (22.0-30.0); Chloride 103 mmol/L (98-107); Chol/HDL Ratio 2.5 (1-3.5); Cholesterol 193 mg/dl (140-200); Estimated Glomerular Filt Rate 108 ml/min (>60); GFR (African American) 131 ML/MIN (>60); Globulin 2.4 g/dL (1.3-3.2); Glucose 64 mg/dl (74-100); HDL Cholesterol 78 mg/dl (40-60); Potassium 4.1 mmoL/L (3.5-5.1); Sodium 138 mmol/L (136-145); Total Protein,Serum 6.5 g/dl (6.3-8.2); Triglycerides 102 mg/dl (30-150); VLDL Cholesterol 20 mg/dL (0-40)
[2021-05-01 18:43] LABS: Direct LDL Cholesterol 85.09 mg/dL (100-129)
[2021-05-01 19:01] LABS: Thyroid Stimulating Hormone 0.56 uIU/mL (0.465-4.68)
[2021-05-01 19:22] LABS: Erythrocyte Sedimentation Rate 21 mm/hr (0-20)
[2021-05-21 10:01] LABS: Antinuclear Antibodies (ANA) NEGATIVE
== END ==
PROVIDERS: Visit Provider Internal Medicine
DX: I10 Essential (primary) hypertension (principal); E78.5 Hyperlipidemia, unspecified; E55.9 Vitamin D deficiency, unspecified; R68.2 Dry mouth, unspecified; M25.50 Pain in unspecified joint; M79.10 Myalgia, unspecified site; R53.83 Other fatigue
CPT/HCPCS: 80053; 80061; 84443; 85025; 85651; 86038

== ENCOUNTER → 2021-05-30 09:33 | Outpatient (POV) | payer MEDICARE, OTHER, SELFPAY ==
[2021-05-30 09:41] VITALS: BP 131/70; PULSE 78; RESP 20; TEMP 36.4; O2SAT 98; BMI 27.1
--- NOTE | 2021-05-30 12:31 | HMH.PMCON ---
Assessment and Plan (1) Rheumatoid arthritis Status: Acute Category: Medical Code(s): M06.9 - Rheumatoid arthritis, unspecified (2) Fibromyalgia Status: Acute Category: Medical Code(s): M79.7 - Fibromyalgia (3) Degenerative disc disease, lumbar Status: Acute Category: Medical Code(s): M51.36 - Other intervertebral disc degeneration, lumbar region (4) Lumbar radiculopathy Status: Acute Category: Medical Code(s): M54.16 - Radiculopathy, lumbar region (5) Bilateral knee pain Status: Acute Category: Medical Code(s): M25.561 - Pain in right knee; M25.562 - Pain in left knee - Assessment and plan all Dx Assessment and Plan for all problems:: Ordering Physician: Aime Atkinson Date of Service: 03/12/21 Procedure(s): MR lumbar spine wo con Accession Number(s): [id number] cc: Campos Galicia MD; Aime Atkinson ~ PROCEDURE: MR LUMBAR SPINE WO CON CLINICAL INDICATION: LOW BACK PAIN, RIGHT POSTERIOR HIP PAIN COMPARISON: No exams were available for comparison TECHNIQUE: Standard multiplanar multiecho sequences are performed without contrast. 3-D MIP and myelographic images are also rendered and reviewed FINDINGS: Normal alignment. The spinal cord ends at the L1 level. T10-T11: Mild degenerative disc disease with minimal bulging disc. T12-L1: Mild circumferential bulging disc with anterior endplate osteophytes. Mild facet and ligamentum hypertrophy with mild bilateral lateral recess narrowing. L1-L2: Unremarkable. L2-L3: Unremarkable. L3-L4: Degenerative disc disease with bulging disc and small central disc protrusion along with facet and ligamentum hypertrophic change with mild right lateral recess narrowing. Anterior osteophytes. L4-5: Degenerative disc disease with bulging disc along with facet and ligamentum hypertrophic change with severe bilateral lateral recess and moderate bilateral foraminal narrowing. Canal stenosis. Small right paracentral broad-based disc protrusion contributing to the severe right lateral recess narrowing. There is impingement upon the L5 nerve roots bilaterally. L5-S1: Degenerative disc disease with facet and ligamentum hypertrophy. IMPRESSION: 1. T12-L1: Mild circumferential bulging disc with anterior endplate osteophytes. Mild facet and ligamentum hypertrophy with mild bilateral lateral recess narrowing. 2. L3-L4: Degenerative disc disease with bulging disc and small central disc protrusion along with facet and ligamentum hypertrophic change with mild right lateral recess narrowing. Anterior osteophytes. 3. L4-5: Degenerative disc disease with bulging disc along with facet and ligamentum hypertrophic change with severe bilateral lateral recess and moderate bilateral foraminal narrowing. Canal stenosis. Small right paracentral broad-based disc protrusion contributing to the severe right lateral recess narrowing. There is impingement upon the L5 nerve roots bilaterally. 4. L5-S1: Degenerative disc disease with facet and ligamentum hypertrophy. Dictated by: Campos Galicia MD 03/13/2021 12:32 Campos Galicia MD in [place] 03/13/2021 12:32 Patient is a pleasant 46-year-old female who presents today as a new patient. Patient has a medical history of rheumatoid arthritis and fibromyalgia. Patient was being followed by rheumatology but she says that her machined parts quality inspector left. She is currently looking for a new machined parts quality inspector. She is complaining of chronic low back pain, shoulder pain, bilateral knee pains. She is currently being managed with clonazepam 2 mg daily, Xenia 7.5 mg 5 times [address] day [address] Atkinson. She says that these are not enough. She is also taking methylprednisolone 4 mg daily. Per the patient's MRI, she would benefit from some injective therapy and possibly a spinal cord stimulator down the line. However, patient states that she is not interested in injective therapy at the moment and also not interested in possible im
== END ==
PROVIDERS: Visit Provider Student in an Organized Health Care Education/Training Program
DX: M06.9 Rheumatoid arthritis, unspecified (principal); M79.7 Fibromyalgia; M51.16 Intervertebral disc disorders with radiculopathy, lumbar region; M25.561 Pain in right knee; M25.562 Pain in left knee
CPT/HCPCS: 99202; G0463

== ENCOUNTER → 2021-06-05 09:56 | Outpatient (CLI) | payer MEDICARE, OTHER, SELFPAY ==
[2021-06-05 10:46] LABS: Basophils # 0.1 K/mm3 (0-0.2); Basophils % 0.3 % (0.1-2.0); Eosinophils # 0.1 K/mm3 (0.0-0.4); Eosinophils % 0.6 % (0.1-12.0); Hematocrit 40.1 % (37.0-47.0); Hemoglobin 12.4 g/dL (12.2-16.2); Mean Corpuscular HGB Conc 30.8 g/dL (31.8-35.4); Mean Corpuscular Hemoglobin 32.1 pg (27.0-31.2); Mean Corpuscular Volume 104.4 fl (81-99); Mean Platelet Volume 7.9 fl (7.4-10.4); Monocytes # 0.8 K/mm3 (0.1-1.0); Monocytes % 6.1 % (1.7-9.3); Neutrophils # 10.5 K/mm3 (1.8-7.8); Neutrophils % 77.9 % (37.0-80.0); Platelet Count 450 K/mm3 (142-424); Red Blood Count 3.84 M/mm3 (4.20-5.40); Red Cell Distribution Width 13.9 % (11.5-17.5); White Blood Count 13.5 K/mm3 (4.8-10.8)
[2021-06-05 10:58] LABS: Alanine Aminotransferase 23 U/L (12-78); Albumin Level 3.9 g/dl (3.5-5.0); Albumin/Globulin Ratio 1.6 (1.1-1.8); Alkaline Phosphatase 76 U/L (38-126); Anion Gap 9.4 mEq/L (5-15); Aspartate Amino Transferase 21 U/L (14-36); Bilirubin,Total 0.4 mg/dl (0.2-1.3); Blood Urea Nitrogen 17 mg/dl (7-17); Carbon Dioxide 29 mmol/L (22.0-30.0); Chloride 101 mmol/L (98-107); Creatine Kinase 46 U/L (30-135); Estimated Glomerular Filt Rate 108 ml/min (>60); GFR (African American) 131 ML/MIN (>60); Globulin 2.5 g/dL (1.3-3.2); Glucose 82 mg/dl (74-100); Potassium 4.4 mmoL/L (3.5-5.1); Sodium 135 mmol/L (136-145); Total Protein,Serum 6.4 g/dl (6.3-8.2)
[2021-06-05 11:04] LABS: C-Reactive Protein 4.9 mg/L (0-4)
[2021-06-05 11:29] LABS: Thyroid Stimulating Hormone 0.57 uIU/mL (0.465-4.68)
[2021-06-05 12:04] LABS: Folate > 20.00 ng/mL; Vitamin B12 557 pg/mL (239-931)
[2021-06-05 12:47] LABS: Erythrocyte Sedimentation Rate 19 mm/hr (0-20)
[2021-06-06 08:17] LABS: RA Latex Turbid. 12.9 IU/mL (<14.0)
[2021-06-06 11:34] LABS: Sjogren's Anti-SS-A <0.2 AI (0.0-0.9); Sjogren's Anti-SS-B <0.2 AI (0.0-0.9)
[2021-06-06 19:11] LABS: Antinuclear Antibodies, IFA Negative (.)
[2021-06-23 21:34] LABS: Antinuclear Antibodies (ANA) Negative
== END ==
PROVIDERS: PCP Internal Medicine; Visit Provider Specialist
DX: M35.3 Polymyalgia rheumatica (principal); M25.50 Pain in unspecified joint; M35.00 Sjogren syndrome, unspecified
CPT/HCPCS: 36415; 80053; 82085; 82550; 82607; 82746; 84443; 85025; 85651; 86038; 86140; 86225; 86235; 86431

== ENCOUNTER → 2021-06-10 16:34 | Outpatient (CLI) | payer MEDICARE, OTHER, SELFPAY ==
--- NOTE | 2021-06-10 16:35 | MR_ITS ---
PROCEDURE INFORMATION: Exam: MR Head Without and With Contrast Exam date and time: 06/10/2021 5:06 PM Age: 46 years old Clinical indication: Pain; Headache; Additional info: Severe headaches. Memory loss. Headache, dizzness, and blurred vision x3 months. 14ml prohance given. TECHNIQUE: Imaging protocol: MR of the head without and with intravenous contrast. Contrast material: PROHANCE; Contrast volume: 14 ml; Contrast route: IV; COMPARISON: CT HEAD/BRAIN WO CON 03/21/2020 8:16 AM FINDINGS: Brain: Good israel-white matter differentiation throughout the brain. Cerebral ventricles: Ventricles normal in size. Midline in position. Bones/joints: Unremarkable. Paranasal sinuses: Normal as visualized. No acute sinusitis. Mastoid air cells: Normal as visualized. No mastoid effusion. Orbital cavities: Unremarkable. Soft tissues: Unremarkable. Other findings: No abnormal regions of enhancement. IMPRESSION: Unremarkable MRI of the brain.
== END ==
PROVIDERS: PCP Internal Medicine; Visit Provider Specialist
DX: G44.59 Other complicated headache syndrome (principal)
CPT/HCPCS: 70553; A9576

== ENCOUNTER → 2021-08-29 09:58 | Outpatient (POV) | payer MEDICARE, OTHER, SELFPAY ==
[2021-08-29 10:21] VITALS: BP 138/64; PULSE 78; RESP 18; TEMP 36.7; O2SAT 98; BMI 27.4
--- NOTE | 2021-08-29 10:28 | HMH.PAINSOAP ---
[facility] Pain Management SOAP Note Subjective:: Patient is a 46 year old female who presents today for follow up. Patient is currently being managed with DDD Lumbar, lumbar radic, rheumatoid arthritis, fibromyalgia, bilateral knee pain, bilateral shoulder pain. Patient just established with us when I last saw her. Based on her MRI and presentation, I had recommended injective therapy with the patient. At that time, patient was not interested in any injective therapy or implants. I started her on a compounding cream and followed her up as needed. She is currently being managed with Melville 7.5mg 5x/day by Dr. Atkinson. I have discussed with the pt in the past that we will not be able to continue this medication. She understands. She wants to give injective therapy a try. Additionally, patient presents with worsening numbness and paresthesia to her right arm. She states that she torn both of her rotator cuffs in the past but never pursued any surgical interventions. When I last saw her, I referred her to Dr. Kowalski for further eval. She has not gone to see orthopedics yet. We will resend this referral. She states that she also found a medication administration professional that would accept her insurance. She does not have a schedule with them yet. Review of Systems: General: No recent weight changes, no fever, no sleep disturbances Respiratory: No cough, no shortness of air, no recurring pulmonary infections Cardiovascular/peripheral vascular: No chest pain, no palpitations, no edema, no shortness of breath Gastrointestinal: No new onset incontinence, normal bowel movements reported Genitourinary: No new onset incontinence Musculoskeletal: Low back pain, bilateral shoulder pain, neck pain Psychiatric: [Normal mood/affect] Neurological: [Denies weakness in extremities], [denies balance issues] Objective:: Physical Exam: General: Alert and oriented x3, no acute distress, pleasant and cooperative Lungs: Respirations even and unlabored, symmetrical chest expansion Eyes: PERRL Musculoskeletal: Flexion and extension of lumbar [spine] somewhat guarded secondary to pain, [antalgic gait noted]; limited range of motion of bilateral shoulders secondary to pain Neurological: Speech clear, no gross sensory deficit Assessment:: Degenerative disc disease of lumbar spine with lumbar radiculopathy symptoms, bilateral shoulder pain, fibromyalgia, rheumatoid arthritis Plan:: We will schedule her for a lumbar epidural steroid injection at L4-L5. Risk and benefits of this procedure been discussed with the patient. Patient is in complaining of worsening neck pain. She also has numbness and paresthesias on bilateral upper extremities, right is worse than the left. We will order a cervical MRI to further evaluate pathology. If her cervical MRI is grossly unremarkable, her numbness and paresthesia might be coming from her bilateral shoulder pain. We will send a referral again to Dr. Kowalski for bilateral shoulder pain. Patient has been instructed to contact the clinic with any concerns before the next appointment. Dr. Aleman has reviewed this note and agrees with this plan of care. This note was dictated using voice recognition software and make contain errors or omissions. [facility] History Medical History: Reports:: Anxiety, Coronary Artery Disease, Depression, Gastroesophageal Reflux Disease(GERD), Hyperlipidemia, Hypertension, Internal Pacemaker Denies:: Cancer, Diabetes Mellitus Type 1, Diabetes Mellitus Type 2, Lung Disease, MRSA, Seizures *Have you ever received a pneumonia vaccine?: No *Have you received a flu vaccine this season?: No Other Medical History: Reports: Arthritis, Fibromyalgia, Other. Denies: Blood Transfusion Reaction Other Surgeries: Yes: Cardiac Catheterization, Colonoscopy, , Hysterectomy-Total, Hysterectomy-Partial, Pacemaker, Tubal Ligation, Other (knee tumor removed in right ) Amputation: No Fractures: No - *Social History Smoking Status: Current some day smoker
== END ==
PROVIDERS: Visit Provider Student in an Organized Health Care Education/Training Program
DX: M51.16 Intervertebral disc disorders with radiculopathy, lumbar region (principal); M79.7 Fibromyalgia; M06.9 Rheumatoid arthritis, unspecified; M25.562 Pain in left knee; M25.561 Pain in right knee; M25.512 Pain in left shoulder; M25.511 Pain in right shoulder
CPT/HCPCS: 99212; G0463

== ENCOUNTER → 2021-09-09 12:50 | Outpatient (CLI) | payer MEDICARE, OTHER, SELFPAY ==
--- NOTE | 2021-09-09 12:53 | MR_ITS ---
FINAL REPORT CLINICAL HISTORY: BILATERAL NECK PAIN, DIZZINESS, PULSATION IN NECK. FINDINGS: Multiplanar MR imaging of the cervical spine was performed without contrast. On the sagittal T2-weighted images, disc degeneration is seen throughout. There is no evidence of fracture. The vertebral alignment is normal. The cervical spinal cord has an unremarkable appearance without evidence of mass, edema or syrinx. No significant canal stenosis is identified. The cervicomedullary junction is normal. C2-3: There is no significant canal stenosis or neural foraminal narrowing. C3-4: Small bilateral uncovertebral osteophytes are present. C4-5: There is no significant canal stenosis or neural foraminal narrowing. C5-6: A disc osteophyte complex is present. There is mild right and severe left neural foraminal narrowing. C6-7: An annular bulge is present. Bilateral uncovertebral osteophytes are present. There is mild right neural foraminal narrowing. C7-T1: There is no significant canal stenosis or neural foraminal narrowing. IMPRESSION: Multilevel degenerative disc disease and spondylosis with areas of neural foraminal narrowing which is worse on the left at C5-6. Annular bulge at C6-7. Reviewed, Interpreted and Dictated by Chevy Sparrow III, MD Transcribed by Kaila Owens Authenticated and [facility]
--- NOTE | 2021-09-09 12:55 | MR_ITS ---
FINAL REPORT CLINICAL HISTORY: RT BICEP RUPTURE, PT WAS LIFTING A CASE OF WATER AND FELT A POP 1 WEEK AGO, SWELLING AND BRUISING OF RT ARM. FINDINGS: Multiplanar MR imaging was obtained of the right humerus without contrast. This exam is not optimized for the shoulder but there are probable complete tears of the supraspinatus and infraspinatus tendons with superior subluxation of the humerus. There is a large amount of fluid in the joint and the subacromial/subdeltoid bursa. There is mild bone marrow edema in the humeral head. There are subchondral cysts in the humeral head. There is a complete tear of the long head of the biceps tendon proximally. The short head of the biceps tendon appears intact. There is a seroma or hematoma adjacent to the mid biceps muscle. IMPRESSION: Complete tear of the long head of the biceps tendon with a seroma or hematoma adjacent to the mid biceps muscle. Probable complete tears of the supraspinatus and infraspinatus tendons with superior subluxation of the humerus. Mild bone marrow edema in the humeral head. Reviewed, Interpreted and Dictated by Chevy Sparrow III, MD Transcribed by Reilly Santos Authenticated and [facility]
== END ==
PROVIDERS: PCP Internal Medicine; Visit Provider Student in an Organized Health Care Education/Training Program
DX: M54.2 Cervicalgia (principal); M66.821 Spontaneous rupture of other tendons, right upper arm
CPT/HCPCS: 72141; 73218; 76376

== ENCOUNTER → 2021-09-17 10:49 | Outpatient (CLI) | payer MEDICARE, OTHER, SELFPAY ==
--- NOTE | 2021-09-17 10:55 | XR_ITS ---
FINAL REPORT CLINICAL HISTORY: shoulder pain FINDINGS: LEFT SHOULDER: Three views of the left shoulder were obtained. There is no acute fracture. There is significant superior subluxation of the humerus likely due to chronic rotator cuff tear. There are mild degenerative changes of the acromioclavicular and glenohumeral joints. There is no soft tissue abnormality. IMPRESSION: Significant superior subluxation of the humerus likely due to chronic rotator cuff tear. Mild degenerative changes. Reviewed, Interpreted and Dictated by Chevy Sparrow III, MD Transcribed by April Yepez Authenticated and [facility]
--- NOTE | 2021-09-17 10:55 | XR_ITS ---
FINAL REPORT CLINICAL HISTORY: shoulder pain FINDINGS: RIGHT SHOULDER: Three views of the right shoulder were obtained. There is no acute fracture. There is significant superior subluxation of the humerus likely due to chronic rotator cuff tear. There are mild degenerative changes of the acromioclavicular and glenohumeral joints. There is no soft tissue abnormality. IMPRESSION: Significant superior subluxation of the humerus likely due to chronic rotator cuff tear. Mild degenerative changes. Reviewed, Interpreted and Dictated by Chevy Sparrow III, MD Transcribed by April Yepez Authenticated and [facility]
== END ==
PROVIDERS: PCP Internal Medicine; Visit Provider Orthopaedic Surgery
DX: M25.512 Pain in left shoulder (principal); M25.511 Pain in right shoulder
CPT/HCPCS: 73030

== ENCOUNTER → 2021-09-30 08:25 | Outpatient (POV) | payer MEDICARE, OTHER, SELFPAY ==
[2021-09-30 09:08] VITALS: BP 139/71; PULSE 71; RESP 18; TEMP 36.6; O2SAT 100; BMI 26.9
--- NOTE | 2021-09-30 09:34 | HMH.PAINSOAP ---
[facility] Pain Management SOAP Note Subjective:: Patient is a pleasant 46-year-old female who presents today for follow-up and MRI findings. She is currently being managed for degenerative disc disease of lumbar spine with lumbar radiculopathy, rheumatoid arthritis, fibromyalgia, bilateral knee pain, bilateral shoulder pain. Patient rates her pain at 8 out of 10 today describing it in her right shoulder and her hip. At today's visit she describes her hips bothering her the most. She states she is unable to walk around and do activities with the pain. She states the pain is a sharp achy sensation. She is currently being managed with [place] 7.5 mg 5 times a day by Dr. Atkinson. She would like to see about scheduling injections in her hips at today's visit. Previously we had scheduled her for a LESI which she did not have done. She states that she tore her biceps a week or two before she was scheduled for her injection and unable to attend. Patient is currently seeing Dr. Kwoalski for her shoulders and torn biceps. Patient states she has torn both of her rotator cuffs in the past. She is waiting for imaging from his office to see the next steps. Dr. Kowalski did schedule her for physical therapy, however, she is unable to see them until she has updated imaging. Patient has also requested updated imaging of her lumbar spine. Gen is [phone] with a morphine equivalent of 50. It has been reviewed and is appropriate. She also states that Dr. Atkinson may have found a behavioral health specialist for her that will accept her insurance. There is no set scheduled visit at this time. MRI Imaging: CLINICAL HISTORY: BILATERAL NECK PAIN, DIZZINESS, PULSATION IN NECK. FINDINGS: Multiplanar MR imaging of the cervical spine was performed without contrast. On the sagittal T2-weighted images, disc degeneration is seen throughout. There is no evidence of fracture. The vertebral alignment is normal. The cervical spinal cord has an unremarkable appearance without evidence of mass, edema or syrinx. No significant canal stenosis is identified. The cervicomedullary junction is normal. C2-3: There is no significant canal stenosis or neural foraminal narrowing. C3-4: Small bilateral uncovertebral osteophytes are present. C4-5: There is no significant canal stenosis or neural foraminal narrowing. C5-6: A disc osteophyte complex is present. There is mild right and severe left neural foraminal narrowing. C6-7: An annular bulge is present. Bilateral uncovertebral osteophytes are present. There is mild right neural foraminal narrowing. C7-T1: There is no significant canal stenosis or neural foraminal narrowing. IMPRESSION: Multilevel degenerative disc disease and spondylosis with areas of neural foraminal narrowing which is worse on the left at C5-6. Annular bulge at C6-7. Reviewed, Interpreted and Dictated by Chevy Sparrow III, MD Transcribed by Kaila Owens Authenticated and . [facility] Review of Systems: General: No recent weight changes, no fever, no sleep disturbances Respiratory: No cough, no shortness of air, no recurring pulmonary infections Cardiovascular/peripheral vascular: No chest pain, no palpitations, no edema, no shortness of breath Gastrointestinal: No new onset incontinence, normal bowel movements reported Genitourinary: No new onset incontinence Musculoskeletal: Bilateral shoulder pain, bilateral hip pain, low back pain Psychiatric: [Normal mood/affect] Neurological: [Denies weakness in extremities], [denies balance issues] Objective:: Physical Exam: General: Alert and oriented x3, no acute distress, pleasant and cooperative Lungs: Respirations even and unlabored, symmetrical chest expansion Eyes: PERRL Musculoskeletal: Flexion and extension of bilateral shoulders, bilateral hips, cervical, lumbar [spine] somewhat guarded secondary to pain, [antalgic gait noted]
== END ==
PROVIDERS: Visit Provider Student in an Organized Health Care Education/Training Program
DX: M51.16 Intervertebral disc disorders with radiculopathy, lumbar region (principal); M06.9 Rheumatoid arthritis, unspecified; M25.561 Pain in right knee; M25.562 Pain in left knee; M19.011 Primary osteoarthritis, right shoulder; Z72.0 Tobacco use; M19.012 Primary osteoarthritis, left shoulder
CPT/HCPCS: 99212; G0463

== ENCOUNTER → 2021-10-08 09:11 | Outpatient (CLI) | payer MEDICARE, OTHER, SELFPAY ==
--- NOTE | 2021-10-08 09:18 | MR_ITS ---
FINAL REPORT CLINICAL HISTORY: shoulder pain. LIMITED ROM. ARM PAIN. NO INJURY OR TRAUMA. WEAKNESS IN ARM. FINDINGS: Multiplanar MR imaging of the left shoulder was performed without contrast. There are complete tears of the distal supraspinatus and infraspinatus tendons. Tendons are retracted to the glenoid. There is moderate supraspinatus and infraspinatus muscle atrophy. There is superior subluxation of the humerus. There is chronic erosion at the undersurface of the acromion. There is moderate AC joint arthrosis. A large amount of fluid is seen in the subacromial/subdeltoid bursa. There is anterior subluxation of the humerus. The long head of the biceps tendon is not seen, presumably torn. The glenoid labrum is intact. Large glenohumeral joint effusion is seen. There is no evidence of fracture or dislocation. There is no evidence of soft tissue mass. IMPRESSION: The tears of the supraspinatus and infraspinatus tendons with moderate muscle atrophy of both. Presumed tear of the long head of the biceps tendon. Reviewed, Interpreted and Dictated by Chevy Sparrow III, MD Transcribed by Elena Gilbert Authenticated and [facility]
--- NOTE | 2021-10-08 09:18 | MR_ITS ---
FINAL REPORT CLINICAL HISTORY: shoulder pain. LIMITED ROM X4-5MONHTS. NO INJURY OR TRAUMA. WEAKNESS IN ARM. HISTORY ROTATOR CUFF SURGERY 2008 FINDINGS: Multiplanar MR imaging of the right shoulder was performed without contrast. There are complete tears of the distal supraspinatus and infraspinatus tendons. Tendons are retracted to the glenoid. There is moderate supraspinatus and infraspinatus muscle atrophy. There is moderate AC joint arthrosis. A large amount of fluid is seen in the subacromial/subdeltoid bursa. There is chronic erosion at the undersurface of the acromion. The glenoid labrum is intact. The long head of the biceps tendon is not seen, likely torn. There is subchondral cyst in the lateral humeral head. Large glenohumeral joint effusion is seen. There is no evidence of fracture or dislocation. There is no evidence of soft tissue mass. IMPRESSION: Complete tears of the supraspinatus and infraspinatus tendons with moderate muscle atrophy. Likely tear of the long head of the biceps tendon. Reviewed, Interpreted and Dictated by Chevy Sparrow III, MD Transcribed by Elena Gilbert Authenticated and [facility]
--- NOTE | 2021-10-08 09:20 | MR_ITS ---
FINAL REPORT CLINICAL HISTORY: BACK PAIN. RIGHT SIDED HIP PAIN. BILATERAL LEG PAIN. SYMPTOMS XYEARS. COMPARISON: 03/12/2021 FINDINGS: Multiplanar MR imaging of the lumbar spine was performed without contrast. On the sagittal T2-weighted images, disc degeneration is seen at multiple levels. Endplate changes are seen at several levels. The vertebral alignment is normal. There is no evidence of fracture. The conus has an unremarkable appearance. T12-L1: An annular bulge is present. Facet arthropathy and osteophytes are present. There is mild left neural foraminal narrowing. L1-2: No significant canal stenosis or neural foraminal narrowing. L2-3: An annular bulge is present. There is no significant canal stenosis or neural foraminal narrowing. L3-4: An annular bulge is present. Facet arthropathy and osteophytes are present. There is a small central disc protrusion with mild bilateral neural foraminal narrowing. L4-5: An annular bulge is present. Facet arthropathy and osteophytes are present. There is a right paracentral disc protrusion resulting in right L5 nerve root impingement. There is moderate right and mild left neural foraminal narrowing. There is mild central canal stenosis with an AP diameter of the thecal sac of 7 mm. L5-S1: Facet arthropathy is present. There is a left foraminal disc protrusions mild left neural foraminal narrowing. IMPRESSION: Right paracentral disc protrusion at L4-5 results in right L5 nerve root impingement and mild central canal stenosis. Multilevel degenerative disc disease and other disc protrusions as detailed above. Findings are stable since previous. Reviewed, Interpreted and Dictated by Chevy Sparrow III, MD Transcribed by Elena Gilbert Authenticated and [facility]
== END ==
PROVIDERS: PCP Internal Medicine; Visit Provider Orthopaedic Surgery
DX: M25.511 Pain in right shoulder (principal); M25.512 Pain in left shoulder; M54.50 Low back pain, unspecified
CPT/HCPCS: 72148; 73221; 76376

== ENCOUNTER → 2021-11-27 10:19 | Outpatient (POV) | payer MEDICARE, OTHER, SELFPAY ==
--- NOTE | 2021-11-27 11:30 | EXP.PAIN.SOA ---
[facility] Pain Management SOAP Note Subjective:: Patient is a pleasant 46-year-old female who presents today for follow-up of MRI results. We are currently treating the patient for degenerative disc disease of lumbar spine with lumbar radiculopathy symptoms, rheumatoid arthritis, fibromyalgia, bilateral knee pain, bilateral shoulder pain. Today she rates her pain an 8 out of 10 and states it is primarily in her low back that radiates into her lower extremities as well as her left shoulder. She describes this as a achy, throbbing sensation that is worse with increased activity. She states this pain does affect her activities of daily living. She states she is always tired and feels depressed due to her pain and limited mobility. She also states that she has been having some chest pain and weight fluctuations. 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 She states she was scheduled to see him last December however she did not make that appointment and has not seen him since. Patient is currently managed with [place] 10 mg 5 times a day by Dr. Aime Atkinson. Patient denies any side effects from this medication. She states this medication does help manage her pain. She previously had been seeing Dr. Kowalski for her shoulder and torn bicep. Patient was scheduled for physical therapy however they did not want to proceed until updated imaging had been done of her lumbar spine. Her Gen is [id number]. Review of Systems: General: No recent weight changes, no fever, no sleep disturbances Respiratory: No cough, no shortness of air, no recurring pulmonary infections Cardiovascular/peripheral vascular: No chest pain, no palpitations, no edema, no shortness of breath Gastrointestinal: No new onset incontinence, normal bowel movements reported Genitourinary: No new onset incontinence Musculoskeletal: Low back pain, bilateral leg pain, left shoulder pain, chest pain Psychiatric: [Normal mood/affect] Neurological: [Denies weakness in extremities], [denies balance issues] Objective:: Physical Exam: General: Alert and oriented x3, no acute distress, pleasant and cooperative Lungs: Respirations even and unlabored, symmetrical chest expansion Eyes: PERRL Musculoskeletal: Flexion and extension of lumbar [spine] somewhat guarded secondary to pain, [antalgic gait noted]. Point tenderness along left shoulder trapezius and bicep Neurological: Speech clear, no gross sensory deficit Assessment:: Degenerative disc disease of lumbar spine with lumbar radiculopathy symptoms, rheumatoid arthritis, fibromyalgia, bilateral knee pain, bilateral shoulder pain Plan:: Patient continues to have significant pain along her low back that radiates into her bilateral lower extremities as well as her left shoulder. Patient had point tenderness along her left shoulder tricep and bicep during today's exam. Patient is not interested in shoulder surgery at this time. Patient's left shoulder MRI did show tears of the supra spinatus and infraspinatus tendons with moderate muscle atrophy of both. She also had a presumed tear of the long head of the biceps tendon. Patient's lumbar MRI did show multilevel degenerative disc disease with disc protrusions, nerve root impingement and mild central canal stenosis. I have counseled the patient regarding her history of cardiac issues and the complaint of chest pain with increased fatigue and fluctuating weight changes that she needs a cardiac work-up. I instructed the patient that she needs to see her mill roll operator as soon as possible and that we will need confirmation from his office that we can proceed forward with injective therapy. I have instructed the patient that she can contact our office once she has this via telephone and that we can proceed forward with ordering her a lumbar epidural steroid injection at L4-L5 without an additional office visit. Risk and benefits were discussed with the patient at the time of this visit. She did want a proceed forw
[2021-11-27 11:36] VITALS: BP 138/77; PULSE 76; RESP 20; TEMP 36.7; O2SAT 98; BMI 26.0
== END ==
PROVIDERS: PCP Internal Medicine; Visit Provider Nurse Practitioner Family
DX: M51.16 Intervertebral disc disorders with radiculopathy, lumbar region (principal); M06.9 Rheumatoid arthritis, unspecified; M79.7 Fibromyalgia; M25.561 Pain in right knee; M25.562 Pain in left knee; M25.511 Pain in right shoulder; M25.512 Pain in left shoulder; Z72.0 Tobacco use
CPT/HCPCS: 99212; G0463

== ENCOUNTER → 2021-12-18 12:53 | Outpatient (CLI) | payer MEDICARE, OTHER, SELFPAY ==
--- NOTE | 2021-12-18 12:56 | CA_ITS ---
APPROVED REPORT EXAM: Comprehensive 2D, Doppler, and color-flow Echocardiogram Plaster Whittler: Vianca Chaudhary CRT Ht: 5 ft 1 in Wt: 144lbs BSA: 1.64 BP: 125/87 mmHg Indications: Chest Pain, Shortness of Breath, CVA/TIA, CAD, Hypertension/HDD, Sjogren's disease 2D Dimensions LVOT 1.60 cm (M/F) 1.5-2.5 LA Volume 42.50 mL LA Volume Index 25.90 mL/m2 (M/F) 16-34 M-Mode Dimensions RVDd 1.97 cm (0.9-2.6) LA Diam 3.00 cm (1.9-4.0) LVDd 4.71 cm (3.5-5.7) Ao Diam 3.56 cm (2.0-3.7) LVDs 3.25 cm (3.5-5.7) IVSd 0.62 cm (0.6-1.1) PWd 0.94 cm (0.6-1.1) EF (Teich) 58.70% FS 31.00% EDV (Teich) 102.90 mL TAPSE 2.81 (<1.7) ESV (Teich) 42.50 mL LV Diastology E Decel Time 153.00 (160-240 msec) E/A Ratio 1.01 MED E' 8.90 (< 7 cm/sec) MED A' 14.20 cm/s E'/MED E' Ratio 9.31 (>14) LAT E' 13.50 (<10 cm/sec) LAT A' 14.10 cm/s E/LAT E' Ratio 6.14 (>14) Aortic Valve AO Peak GR. 7.30 mmHg Mitral Valve MV E Max Dileep. 83.00 (40-130 cm/s) MV A Velocity 82.00 (40-130 cm/s) E/A Ratio 1.01 MV Decel. Time 153.00 (160-240 ms) MV PHT 45.00 ms Pulmonary Valve PV Peak Velocity 83.00 (50-150 cm/s) Tricuspid Valve TR P. Velocity 198.00 cm/s RAP Estimate 10.00 mmHg RVSP 25.70 mmHg Left Ventricle Left atrium is normal size, left ventricle is normal size, estimated ejection fraction 55% with no regional wall motion abnormality, diastolic parameters are within normal range. Right Ventricle Right atrium and right ventricle are normal size and contractility. Aortic Valve Aortic valve is grossly normal there is no aortic stenosis or aortic insufficiency. Mitral Valve Mitral valve is grossly normal, there is trace mitral regurgitation. Tricuspid Valve Tricuspid valve grossly normal, there is trace tricuspid regurgitation, tricuspid regurgitation jet velocity is inadequate for calculation of the right ventricular systolic pressure. Pulmonic Valve Pulmonic valve is poorly visualized. Great Vessels Aortic root is normal size. Inferior vena cava is normal size with normal inspiratory collapse. Pericardium No significant pericardial effusion noted. Conclusion 1. Normal left ventricular size preserved left ventricular systolic function, estimated ejection fraction 55% with no regional wall motion abnormality, diastolic parameters are within normal range. 2. Trace mitral and tricuspid regurgitation. 3. No significant pericardial effusion. 4. Inferior vena cava normal 7 normal inspiratory collapse. Electronically signed by : Slade Hand MD 12/19/2021 06:06:04
--- NOTE | 2021-12-18 12:56 | CA_ITS ---
FINAL REPORT TECHNIQUE: Color Doppler, duplex Doppler and israel scale sonography of the bilateral neck arterial vasculature was performed. Velocities were measured in the carotid arteries. Stenosis evaluation based on the validated velocity criteria. CLINICAL HISTORY: bilateral BARON, Lupus FINDINGS: The peak systolic velocity of the right common carotid artery is 69 cm/s. The peak systolic velocity of the right internal carotid artery is 124 cm/s and end diastolic velocity 42 cm/s. The ICA/CCA ratio is 1.8. A mild amount of plaque is present. The right external carotid artery is patent. The right vertebral artery is patent with antegrade flow. The peak systolic velocity of the left common carotid artery is 100 cm/s. The peak systolic velocity of the left internal carotid artery is 135 cm/s and end diastolic velocity 49 cm/s. The ICA/CCA ratio is 1.4. A mild amount of plaque is present. The left external carotid artery is patent.The left vertebral artery is patent with antegrade flow. IMPRESSION: Less than 50% bilateral carotid stenosis. Bilateral patent vertebral arteries with antegrade flow. If indicated, CTA or MRA could further evaluate. Reviewed, Interpreted and Dictated by Manolo Belle MD Transcribed by Kaila Owens Authenticated and [facility]
== END ==
PROVIDERS: PCP Internal Medicine; Visit Provider Physician Assistant
DX: I65.23 Occlusion and stenosis of bilateral carotid arteries (principal); R06.09 Other forms of dyspnea; R07.9 Chest pain, unspecified
CPT/HCPCS: 93306; 93880

== ENCOUNTER → 2021-12-23 11:21 | Outpatient (CLI) | payer MEDICARE, OTHER, SELFPAY ==
--- NOTE | 2021-12-23 11:29 | XR_ITS ---
FINAL REPORT CLINICAL HISTORY: RT HAND INJURY,PAIN FINDINGS: RIGHT HAND: 3 views of the right hand were obtained. There is no acute fracture. There is radial subluxation of the 1st metacarpal at the CMC joint. There are mild degenerative changes at the 2nd and 3rd D IP joints. There are moderate degenerative changes at the 1st CMC joint. Soft tissues are unremarkable. IMPRESSION: Radial subluxation of the 1st metacarpal at the CMC joint. Degenerative changes as above. Reviewed, Interpreted and Dictated by Chevy Sparrow III, MD Transcribed by Lindsey Campos Authenticated and [facility]
--- NOTE | 2021-12-23 11:29 | XR_ITS ---
FINAL REPORT CLINICAL HISTORY: RT FOOT INJURY,PAIN FINDINGS: RIGHT FOOT 3 views were obtained. There is no acute fracture or dislocation. The joint spaces are intact. There is no soft tissue abnormality. IMPRESSION: No acute bony abnormality. Reviewed, Interpreted and Dictated by Chevy Sparrow III, MD Transcribed by Lindsey Campos Authenticated and [facility]
--- NOTE | 2021-12-23 11:29 | XR_ITS ---
FINAL REPORT CLINICAL HISTORY: RT WRIST INJURY,PAIN FINDINGS: RIGHT WRIST 3 views were obtained. There is no acute fracture. There is 6 mm of lateral subluxation of the 1st metacarpal at the carpometacarpal joint. There are moderate degenerative changes at the 1st carpometacarpal joint. Mild degenerative changes are noted elsewhere. There is no soft tissue abnormality. IMPRESSION: Lateral subluxation of the 1st metacarpal at the CMC joint. Degenerative changes as above. Reviewed, Interpreted and Dictated by Chevy Sparrow III, MD Transcribed by Lindsey Camops Authenticated and [facility]
== END ==
PROVIDERS: PCP Internal Medicine; Visit Provider Internal Medicine
DX: M25.531 Pain in right wrist (principal); M79.641 Pain in right hand; M79.671 Pain in right foot
CPT/HCPCS: 73110; 73130; 73630

== ENCOUNTER 2021-12-24 16:39 | Outpatient (RCR) | payer MEDICARE, OTHER, SELFPAY | END 2021-12-27 17:30 | disposition home or self-care (01) | LOC: PT 16:39 | PROVIDERS: Visit Provider Nurse Practitioner Family | DX: S62.231A Other displaced fracture of base of first metacarpal bone, right hand, initial encounter for closed fracture (principal) | CPT/HCPCS: 97760 ==

== ENCOUNTER 2021-12-26 13:49 | Emergency (ER) | payer MEDICARE, OTHER, SELFPAY ==
--- NOTE | 2021-12-26 13:49 | ECG_ITS ---
APPROVED REPORT Exam: Resting ECG HR:78 bpm ECG Measurements Heart Rate 78 AXES PA 155 P 76 QRSd 85 QRS 58 QT 379 T 79 QTc 412 Conclusion SINUS RHYTHM NORMAL ECG UNCONFIRMED REPORT Electronically signed by : Reji Moyer MD 12/28/2021 17:41:45
[2021-12-26 13:56] VITALS: BP 125/66; PULSE 76; RESP 16; TEMP 36.6; O2SAT 97; BMI 27.4
--- NOTE | 2021-12-26 14:01 | HMH.EDGENADL ---
Discharge Plan Disposition Patient Disposition: Home, Self-Care Condition: Fair Prescriptions Prescriptions: New oxycodone-acetaminophen [Percocet] 5-325 mg tablet 1 tab PO Q6H PRN (Reason: pain) Qty: 4 0RF No Action folic acid 1 mg tablet 1 mg PO DAILY cholecalciferol (vitamin D3) 1,250 mcg (50,000 unit) capsule 50,000 iunits PO QWEEK furosemide [Lasix] 20 mg tablet 20 mg PO DAILYP PRN (Reason: fluid retention) sennosides-docusate sodium 8.6-50 mg tablet 8.6 mg PO DAILY 90 Days Qty: 180 fluticasone propionate 50 mcg/actuation spray,suspension 1 spray NS DAILY 90 Days Qty: 48 clonazepam 2 mg tablet 2 mg PO QHS 90 Days Qty: 90 bisoprolol fumarate 10 mg tablet 10 mg PO DAILY 90 Days Qty: 90 cyclobenzaprine 10 mg tablet 10 mg PO TID PRN (Reason: muscles) 90 Days Qty: 90 esomeprazole magnesium 40 mg capsule,delayed release(DR/EC) 1 tab PO DAILY 90 Days Qty: 180 loratadine-pseudoephedrine 10-240 mg tablet extended release 24 hr 10 mg PO DAILY 30 Days Qty: 30 hydrocodone-acetaminophen 7.5-325 mg tablet 1 - 2 tab PO Q6H PRN (Reason: Pain) 25 Days Qty: 3 aspirin 81 mg tablet,delayed release (DR/EC) 81 mg PO DAILY methylprednisolone 4 mg tablet 12 mg PO DAILY losartan 100 mg tablet 100 mg PO DAILY escitalopram oxalate 20 mg tablet 30 mg PO DAILY Referrals Follow up/Referrals: Aime Atkinson MD [Primary Care Provider] - See instructions Activity Restrictions/Add. Instructions Additional Instructions/Restrictions: Percocet as needed for severe pain. Do not take hydrocodone while taking Percocet. Call Dr. Atkinson and Dr. Aleman tomorrow for further management of your pain. Additional instructions for CONTROLLED SUBSTANCES: You have been prescribed a medication that is a controlled substance. Controlled substances include pain medications known as opiates and sedative nerve medications known as benzodiazepines. Tramadol, fioricet, and gabapentin are also controlled substances. Some common opiates include: Codeine (such as Tylenol #3) Hydrocodone (Vicodin, Lortab, Lorcet, [place]) Oxycodone (Percocet, Percodan, Oxycodone, Oxy IR) Some common benzodiazepines include: Diazepam (Valium) Lorazepam (Ativan) Alprazolam (Xanax) Clonazepam (Klonopin) Oxazepam (Serax) All of these controlled substances are highly addictive and frequently abused. Misuse can and frequently does lead to addiction as well as overdose and . Medication should be stored in a locked cabinet or other secure storage unit. Do not store the medication in a motor vehicle. Short term supplies, 3 days or less, are prescribed because of the highly addictive nature of the medication. Any of the controlled substance medication NOT taken should be disposed of properly and NOT SAVED. The recommended method of disposing of unused medications is: Place the medicines in a sealable plastic bag. If the medicine is a solid, crush it or add water to dissolve it. Add something undesirable (cat litter, coffee grounds, etc.) Dispose of sealed bag in household trash Do not flush or pour unused medicines down a sink or drain. Controlled substances should not be shared, given away or sold. Because of the addictive nature and frequent abuse, these medications are sometimes stolen. These medications should be kept in a safe place where they cannot be stolen. Do not keep them in your car or purse. Lost or stolen prescriptions for controlled substances WILL NOT BE REFILLED in this emergency department, regardless of whether a police report was filed. Clinical Impressions Clinical Impression: Acute chest wall pain Discharge ED Provider: Andrzej Rehman General Adult HPI General Chief complaint: Chest Pain Stated complaint: cp Time Seen by Provider: 12/26/21 14:01 History of Present Illness HPI narrative: Patient states she thinks she tore the m
[2021-12-26 14:05] VITALS: PULSE 76
--- NOTE | 2021-12-26 14:07 | XR_ITS ---
FINAL REPORT CLINICAL HISTORY: chest pain FINDINGS: A single view of the chest was obtained. The heart is normal in size. The mediastinum is unremarkable. The lungs are clear. There is no pleural effusion. There is no pneumothorax. There is no acute osseous abnormality. IMPRESSION: No acute cardiopulmonary process. Reviewed, Interpreted and Dictated by Chevy Sparrow III, MD Transcribed by Lindsey Campos Authenticated and [facility]
--- NOTE | 2021-12-26 14:11 | CT_ITS ---
FINAL REPORT TECHNIQUE: Then section axial CT images of the chest were obtained with contrast. Three-D reformatted images were also obtained.This study was performed with techniques to keep radiation doses as low as reasonably achievable (ALARA). Individualized dose reduction techniques using automated exposure control or adjustment of mA and/or kV according to the patient''s size were employed. CLINICAL HISTORY: left chest pain FINDINGS: There is no evidence of pulmonary embolism. There is no evidence of thoracic aortic aneurysm or dissection. There is no evidence of mediastinal or hilar mass or adenopathy. There is a 3 mm left lower lobe nodule well seen on image 60. No localized inflammatory process is seen within the lungs. Limited images of the upper abdomen are unremarkable. IMPRESSION: No evidence of pulmonary embolism. 3 mm left lower lobe nodule. No follow-up required per Fleischner criteria. Reviewed, Interpreted and Dictated by Chevy Sparrow III, MD Transcribed by Lindsey Campos Authenticated and [facility]
[2021-12-26 14:23] LABS: Chloride 97 mmol/L (98-107); Sodium 132 mmol/L (136-145)
[2021-12-26 14:24] LABS: Basophils # 0.1 K/mm3 (0-0.2); Basophils % 0.7 % (0.1-2.0); Eosinophils # 0.1 K/mm3 (0.0-0.4); Hematocrit 41.3 % (37.0-47.0); Hemoglobin 13.1 g/dL (12.2-16.2); Lymphocytes # 3.1 K/mm3 (0.7-4.5); Lymphocytes % 23.7 % (10-50); Mean Corpuscular HGB Conc 31.6 g/dL (31.8-35.4); Mean Corpuscular Hemoglobin 32.3 pg (27.0-31.2); Mean Corpuscular Volume 102.4 fl (81-99); Mean Platelet Volume 7.8 fl (7.4-10.4); Monocytes # 0.8 K/mm3 (0.1-1.0); Monocytes % 6.3 % (1.7-9.3); Neutrophils % 68.4 % (37.0-80.0); Platelet Count 401 K/mm3 (142-424); Potassium 4.4 mmoL/L (3.5-5.1); Red Blood Count 4.04 M/mm3 (4.20-5.40); Red Cell Distribution Width 13.5 % (11.5-17.5); White Blood Count 13.1 K/mm3 (4.8-10.8)
[2021-12-26 14:26] LABS: Blood Urea Nitrogen 11 mg/dl (7-17); Creatinine Clearance Estimated 109 mL/min (50-200); Estimated Glomerular Filt Rate 90 ml/min (>60); GFR (African American) 109 ML/MIN (>60)
[2021-12-26 14:27] LABS: Anion Gap 9.4 mEq/L (5-15); Calcium 8.8 mg/dl (8.4-10.2); Carbon Dioxide 30 mmol/L (22.0-30.0); Glucose 65 mg/dl (74-100)
[2021-12-26 14:30] VITALS: BP 114/70; PULSE 70; RESP 21; O2SAT 96
[2021-12-26 14:43] LABS: Troponin I < 0.01 ng/ml (0.00-0.034)
[2021-12-26 15:00] VITALS: BP 115/62; PULSE 74; RESP 14; O2SAT 99
[2021-12-26 15:30] VITALS: BP 105/64; PULSE 73; RESP 14; O2SAT 99
--- NOTE | 2021-12-26 15:45 | PC.NURSE ---
PT STATES HER PAIN HAS IMPROVED. NO ACUTE DISTRESS NOTED.
[2021-12-26 15:49] VITALS: BP 105/64; PULSE 73; RESP 18; TEMP 36.6; O2SAT 99
== END 2021-12-26 15:51 | disposition home or self-care (01) ==
PROVIDERS: Emergency Provider Emergency Medicine; PCP Internal Medicine
DX: R07.89 Other chest pain (principal); Z79.82 Long term (current) use of aspirin; Z79.899 Other long term (current) drug therapy; Z88.6 Allergy status to analgesic agent; Z88.8 Allergy status to other drugs, medicaments and biological substances; I51.9 Heart disease, unspecified; I73.9 Peripheral vascular disease, unspecified; M35.09 Sjogren syndrome with other organ involvement; Z72.0 Tobacco use; Z82.49 Family history of ischemic heart disease and other diseases of the circulatory system
CPT/HCPCS: 71045; 71275; 80048; 84484; 85025; 93005; 96374; 99285; Q9967

== ENCOUNTER → 2022-01-23 13:54 | Outpatient (POV) | payer MEDICARE, OTHER, SELFPAY ==
[2022-01-23 14:47] VITALS: BP 104/43; PULSE 82; RESP 18; TEMP 36.3; O2SAT 98; BMI 25.6
--- NOTE | 2022-01-23 15:05 | EXP.PAIN.SOA ---
[facility] Pain Management SOAP Note Subjective:: Patient is a pleasant 46-year-old female who presents today for follow-up. We are currently treating the patient for degenerative disc disease of lumbar spine with lumbar radiculopathy symptoms, rheumatoid arthritis, fibromyalgia, bilateral knee pain, bilateral shoulder pain. Today the patient rates her pain an 8 out of 10. Patient states the pain is in her low back that radiates into her lower extremities as well as her generalized joints. Patient denies any new trauma or injury. Patient denies any change in location or type of pain she experiences. Patient does state this is an aching, throbbing sensation that is constant and worse with increased activity. She states she is unable to tolerate activities of daily living and continuously feels depressed due to her pain and limited mobility. 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 Patient does state that she was told that she had 50% blockages in 2 main arteries. Patient states it did not sound like a hopeful outcome and that Dr. Matute gave her approximately 2 years. Patient is currently managed with [place] 10 mg 5 times a day [address] Dr. Atkinson's office. Patient denies any side effects from this medication. She states this medication does help manage her pain symptoms. Patient is currently seeing Dr. Sutton for her shoulders and right wrist dislocation related to a fall back in November. Her Gen is [id number]. It has been reviewed and appropriate. Review of Systems: General: No recent weight changes, no fever, no sleep disturbances Respiratory: No cough, no shortness of air, no recurring pulmonary infections Cardiovascular/peripheral vascular: No chest pain, no palpitations, no edema, no shortness of breath Gastrointestinal: No new onset incontinence, normal bowel movements reported Genitourinary: No new onset incontinence Musculoskeletal: Low back pain, generalized joint pain Psychiatric: [Normal mood/affect] Neurological: [Denies weakness in extremities], [denies balance issues] Objective:: Physical Exam: General: Alert and oriented x3, no acute distress, pleasant and cooperative Lungs: Respirations even and unlabored, symmetrical chest expansion Eyes: PERRL Musculoskeletal: Flexion and extension of cervical, lumbar [spine] somewhat guarded secondary to pain, [antalgic gait noted] Neurological: Speech clear, no gross sensory deficit Assessment:: Degenerative disc disease of lumbar spine with lumbar radiculopathy symptoms, rheumatoid arthritis, fibromyalgia, bilateral knee pain, bilateral shoulder pain Plan:: Patient continues to experience significant pain in her low back with radicular symptoms as well as generalized joint pain. I have discussed with the patient that she may be a beneficial candidate for a spinal cord stimulator or pain pump trial. Risk and benefits were discussed with the patient. She would like to proceed forward with the pain pump trial. I have counseled the patient that we will have to get cardiac clearance from Dr. Matute's office before proceeding. I will order a psychiatric evaluation at today's visit. I will also refer the patient for physical therapy. We will also send a referral for neurosurgery. we will submit for the pain pump trial and contact the patient once we have all the appropriate approvals. Patient has been instructed to contact the clinic with any concerns before the next appointment. Dr. Aleman has reviewed this note and agrees with this plan of care. This note was dictated using voice recognition software and make contain errors or omissions. [facility] Medical History (Updated 12/26/21 @ 15:40 by Andrzej Rehman MD) Heart disease PVD (peripheral vascular disease) Sjogren syndrome with other organ involvement Surgical History (Updated 12/26/21 @ 14:10 by Maggie Elaine RN) History of hysterectomy Family History (Updated 12/26/21 @ 14:14 by Maggie Thompson
== END ==
PROVIDERS: PCP Internal Medicine; Visit Provider Nurse Practitioner Family
DX: M51.16 Intervertebral disc disorders with radiculopathy, lumbar region (principal); M06.9 Rheumatoid arthritis, unspecified; M79.7 Fibromyalgia; M25.511 Pain in right shoulder; M25.512 Pain in left shoulder; M25.561 Pain in right knee; M25.562 Pain in left knee
CPT/HCPCS: 99212; G0463

== ENCOUNTER 2022-02-05 08:50 | Outpatient (RCR) | payer MEDICARE, OTHER, SELFPAY ==
--- NOTE | 2022-02-05 10:52 | HMH.PTOPEV ---
PT Outpatient Evaluation Rehab PT Outpatient Evaluation Start: 02/05/22 10:19 Freq: Status: Active Protocol: Document 02/05/22 10:25 MICH (Rec: 02/05/22 10:51 MICH [id number]) E-signed By Arben Wylie, PT Outpatient Therapy Subjective History Subjective History Pt reports h/o chronic LBP d/t lumbar region 'buldging discs ', multi-level DDD. Pt reports LLE radicular s/s of N&T, right LE weakness, rapid LE fatigue w/household activity. Pt also reports limited bilateral UE ROM and strength d/t RTC tears and systemic LUPUS and RA, 'which effects my whole body'. Pt also reports CHF w/PVD, causes LE swelling and pain. PMH: Sjogren syndrome, RA Chief Complaint Pain,Spasms,Stiff,Swelling, Gives out/Unstable,Paresthesia ,Weakness Symptom Type Ache,Throb,Sharp,Dull,Stabbing ,Burning,Numbness,Tingling, Shooting Symptoms Relieved By Nothing Symptoms Aggravated By Prone,Supine,Sitting,Standing, Bending/Stooping,Physical Activity,Twisting,Walking, Lifting Prior Functional Limitations Reaching,Lifting,Housework, Standing,Walking Current Functional Limitations Reaching,Lifting,Housework, Standing,Walking Symptom Description Constant but Variable Level of pain today (0-10) 6 Pain scale - at its best (0-10) 6 Pain scale - at its worst (0-10) 10 Shoulder/Elbow Eval Shoulder Objective Measurements Shoulder ROM Bilateral Shoulder Abduction Active Range of 0-70 Motion (degrees) Shoulder Flexion Active Range of Motion 0-70 (degrees) Query Text: Shoulder MMT Shoulder Abduction Strength Grade 3- Fair- Shoulder Flexion Strength Grade 3- Fair- Elbow Objective Measurements Elbow ROM Bilateral Elbow Flexion Active Range of Motion ( 0-100 degrees) Elbow ROM Limitations Muscle Weakness Lumbopelvic Eval Posture Thoracic Spine Posture Standing Position Increased Kyphosis Lumbar Spine Posture Standing Position Flattened Assistive device Assistive Devices None / NA Gait Observation General Gait Pattern Observation Antalgic Gait,Wide Based Gait, [place]
== END 2022-02-05 08:55 | disposition home or self-care (01) ==
LOC: PT 08:50
PROVIDERS: PCP Internal Medicine; Visit Provider Nurse Practitioner Family
DX: M54.50 Low back pain, unspecified (principal)
CPT/HCPCS: 97163

== ENCOUNTER → 2022-02-05 11:57 | Outpatient (CLI) | payer MEDICARE, OTHER, SELFPAY ==
[2022-02-05 12:43] LABS: Basophils # 0.1 K/mm3 (0-0.2); Basophils % 0.7 % (0.1-2.0); Eosinophils # 0.1 K/mm3 (0.0-0.4); Eosinophils % 0.9 % (0.1-12.0); Hematocrit 42.1 % (37.0-47.0); Hemoglobin 13.2 g/dL (12.2-16.2); Lymphocytes # 3.6 K/mm3 (0.7-4.5); Mean Corpuscular HGB Conc 31.4 g/dL (31.8-35.4); Mean Corpuscular Hemoglobin 31.9 pg (27.0-31.2); Mean Corpuscular Volume 101.8 fl (81-99); Mean Platelet Volume 8.5 fl (7.4-10.4); Monocytes # 1.1 K/mm3 (0.1-1.0); Monocytes % 7.6 % (1.7-9.3); Neutrophils # 9.5 K/mm3 (1.8-7.8); Neutrophils % 65.8 % (37.0-80.0); Platelet Count 474 K/mm3 (142-424); Red Blood Count 4.13 M/mm3 (4.20-5.40); Red Cell Distribution Width 13.8 % (11.5-17.5); White Blood Count 14.4 K/mm3 (4.8-10.8)
[2022-02-05 13:41] LABS: Alanine Aminotransferase 25 U/L (12-78); Albumin Level 4.2 g/dl (3.5-5.0); Albumin/Globulin Ratio 1.7 (1.1-1.8); Alkaline Phosphatase 105 U/L (38-126); Anion Gap 10.5 mEq/L (5-15); Aspartate Amino Transferase 25 U/L (14-36); Bilirubin,Total 0.3 mg/dl (0.2-1.3); Blood Urea Nitrogen 14 mg/dl (7-17); Calcium 9.7 mg/dl (8.4-10.2); Carbon Dioxide 32 mmol/L (22.0-30.0); Chloride 94 mmol/L (98-107); Chol/HDL Ratio 2.7 (1-3.5); Cholesterol 223 mg/dl (140-200); Estimated Glomerular Filt Rate 78 ml/min (>60); GFR (African American) 94 ML/MIN (>60); Globulin 2.5 g/dL (1.3-3.2); Glucose 61 mg/dl (74-100); HDL Cholesterol 82 mg/dl (40-60); Potassium 4.5 mmoL/L (3.5-5.1); Sodium 132 mmol/L (136-145); Total Protein,Serum 6.7 g/dl (6.3-8.2); Triglycerides 86 mg/dl (30-150); VLDL Cholesterol 17 mg/dL (0-40)
[2022-02-05 13:53] LABS: Direct LDL Cholesterol 102.12 mg/dL (100-129)
[2022-02-05 14:13] LABS: Thyroid Stimulating Hormone 1.08 uIU/mL (0.465-4.68)
[2022-02-05 14:32] LABS: Vitamin B12 485 pg/mL (239-931)
[2022-02-05 16:05] LABS: 25-OH Vitamin D, Total 44.7 ng/mL (30-100)
[2022-02-05 16:17] LABS: Erythrocyte Sedimentation Rate 15 mm/hr (0-20)
[2022-02-06 11:13] LABS: RA Latex Turbid. 11.6 IU/mL (<14.0)
[2022-02-07 00:06] LABS: Anti-Cyclic Citrullinated Pept 2 units (0-19)
== END ==
PROVIDERS: PCP Internal Medicine; Visit Provider Internal Medicine
DX: I25.10 Atherosclerotic heart disease of native coronary artery without angina pectoris (principal); E55.9 Vitamin D deficiency, unspecified; I10 Essential (primary) hypertension; M79.7 Fibromyalgia; F90.9 Attention-deficit hyperactivity disorder, unspecified type; M05.9 Rheumatoid arthritis with rheumatoid factor, unspecified
CPT/HCPCS: 80053; 80061; 82306; 82607; 84443; 85025; 85651; 86200; 86431

== ENCOUNTER → 2022-03-07 11:20 | Outpatient (CLI) | payer MEDICARE, OTHER, SELFPAY | LOC: RT 11:21 | PROVIDERS: PCP Internal Medicine; Visit Provider Internal Medicine | DX: R00.2 Palpitations (principal) | CPT/HCPCS: 93225; 93226 ==

== ENCOUNTER → 2022-03-20 10:57 | Outpatient (CLI) | payer MEDICARE, OTHER, SELFPAY ==
--- NOTE | 2022-03-20 11:02 | XR_ITS ---
FINAL REPORT CLINICAL HISTORY: rt hand injury COMPARISON: December 23, 2021 FINDINGS: RIGHT HAND Three views demonstrate small chip fractures at the distal aspect of the 3rd middle phalanx and the proximal aspect of the 3rd middle phalanx. There is no dislocation. The visualized joint spaces are normally aligned. There are moderate degenerative changes in the 1st CMC joint with a small loose body in this region. The soft tissues are unremarkable. IMPRESSION: Small chip fractures of the 3rd middle phalanx. Reviewed, Interpreted and Dictated by Chevy Sparrow III, MD Transcribed by Kaila Owens Authenticated and [facility][1]
== END ==
PROVIDERS: PCP Internal Medicine; Visit Provider Orthopaedic Surgery
DX: M24.341 Pathological dislocation of right hand, not elsewhere classified (principal)
CPT/HCPCS: 73130

== ENCOUNTER → 2022-04-09 17:00 | Outpatient (CLI) | payer MEDICARE, OTHER, SELFPAY ==
[2022-04-09 17:45] LABS: Anion Gap 9.1 mEq/L (5-15); Blood Urea Nitrogen 14 mg/dl (7-17); Calcium 8.9 mg/dl (8.4-10.2); Carbon Dioxide 32 mmol/L (22.0-30.0); Chloride 98 mmol/L (98-107); Estimated Glomerular Filt Rate 78 ml/min (>60); GFR (African American) 94 ML/MIN (>60); Glucose 61 mg/dl (74-100); Magnesium 2.2 mg/dl (1.6-2.3); Potassium 4.1 mmoL/L (3.5-5.1); Sodium 135 mmol/L (136-145)
[2022-04-09 18:14] LABS: Thyroid Stimulating Hormone 1.19 uIU/mL (0.465-4.68)
== END ==
PROVIDERS: PCP Internal Medicine; Visit Provider Internal Medicine
DX: I25.118 Atherosclerotic heart disease of native coronary artery with other forms of angina pectoris (principal); I10 Essential (primary) hypertension; R25.2 Cramp and spasm; M79.7 Fibromyalgia; M05.9 Rheumatoid arthritis with rheumatoid factor, unspecified
CPT/HCPCS: 80048; 83735; 84443

== ENCOUNTER → 2022-07-18 11:18 | Outpatient (CLI) | payer MEDICARE, OTHER, SELFPAY ==
--- NOTE | 2022-07-18 11:29 | XR_ITS ---
FINAL REPORT CLINICAL HISTORY: LT KNEE INJURY FINDINGS: 4 views of the left knee were obtained. There is a lucency in the lateral tibial spine, a fracture in this region cannot be excluded. No other bony abnormality is identified. There is no evidence of joint effusion. IMPRESSION: Possible nondisplaced fracture of the lateral tibial spine. This could be further evaluated with follow-up radiographs or CT. Authenticated and [facility]
== END ==
PROVIDERS: PCP Internal Medicine; Visit Provider Internal Medicine
DX: M25.562 Pain in left knee (principal); S89.92XA Unspecified injury of left lower leg, initial encounter
CPT/HCPCS: 73562

== ENCOUNTER → 2022-07-21 10:09 | Outpatient (CLI) | payer MEDICARE, OTHER, SELFPAY ==
--- NOTE | 2022-07-21 10:15 | CT_ITS ---
FINAL REPORT CLINICAL HISTORY: ABNORMAL XRAY, left knee pain COMPARISON: X-ray dated 07/08/2022 FINDINGS: CT LEFT KNEE WITHOUT CONTRAST TECHNIQUE: Axial, reformatted, and 3D images were obtained of the left knee. This study was performed with techniques to keep radiation doses as low as reasonably achievable, (ALARA). Individualized dose reduction techniques using automated exposure control or adjustment of mA and/or kV according to the patient's size were employed. FINDINGS: No fracture is identified. The joint space is preserved. Musculature is intact. There is no joint effusion. There is no soft tissue mass. IMPRESSION: No acute process Reviewed, Interpreted and Dictated by Otoniel Booker MD Transcribed by Lindsey Campos Authenticated and [facility]
== END ==
PROVIDERS: PCP Internal Medicine; Visit Provider Internal Medicine
DX: M25.562 Pain in left knee (principal); S89.92XA Unspecified injury of left lower leg, initial encounter; R93.6 Abnormal findings on diagnostic imaging of limbs
CPT/HCPCS: 73700

== ENCOUNTER → 2022-08-15 16:08 | Outpatient (CLI) | payer MEDICARE, OTHER, SELFPAY ==
--- NOTE | 2022-08-15 16:26 | XR_ITS ---
FINAL REPORT CLINICAL HISTORY: PAIN, OBJECT FELL ON LEFT FOOT FINDINGS: 3 views of the left foot were obtained. There is no acute fracture or dislocation. Mild calcaneal spurring. Mild degenerative change of the midfoot. The soft tissues are unremarkable. IMPRESSION: No acute process. Reviewed, Interpreted and Dictated by Manolo Belle MD Transcribed by Reilly Santos Authenticated and [facility]
[2022-08-15 17:04] LABS: Chloride 97 mmol/L (98-107); Sodium 138 mmol/L (136-145)
[2022-08-15 17:05] LABS: Potassium 3.8 mmoL/L (3.5-5.1)
[2022-08-15 17:07] LABS: Blood Urea Nitrogen 12 mg/dl (7-17); Estimated Glomerular Filt Rate 67 ml/min (>60); GFR (African American) 82 ML/MIN (>60)
[2022-08-15 17:08] LABS: Anion Gap 9.8 mEq/L (5-15); Calcium 9.4 mg/dl (8.4-10.2); Carbon Dioxide 35 mmol/L (22.0-30.0); Glucose 85 mg/dl (74-100)
== END ==
PROVIDERS: PCP Internal Medicine; Visit Provider Internal Medicine
DX: M79.672 Pain in left foot (principal)
CPT/HCPCS: 36415; 73630; 80048

== ENCOUNTER → 2022-10-06 17:29 | Outpatient (CLI) | payer MEDICARE, OTHER, SELFPAY ==
[2022-10-06 18:19] LABS: Basophils % 0.3 % (0.1-2.0); Eosinophils # 0.2 K/mm3 (0.0-0.4); Eosinophils % 1.1 % (0.1-12.0); Hematocrit 42.7 % (37.0-47.0); Hemoglobin 13.5 g/dL (12.2-16.2); Lymphocytes % 29.8 % (10-50); Mean Corpuscular HGB Conc 31.6 g/dL (31.8-35.4); Mean Corpuscular Hemoglobin 30.4 pg (27.0-31.2); Monocytes % 7.2 % (1.7-9.3); Neutrophils # 8.2 K/mm3 (1.8-7.8); Neutrophils % 61.6 % (37.0-80.0); Platelet Count 395 K/mm3 (142-424); Red Blood Count 4.45 M/mm3 (4.20-5.40); Red Cell Distribution Width 13.6 % (11.5-17.5); White Blood Count 13.3 K/mm3 (4.8-10.8)
[2022-10-06 18:30] LABS: Alanine Aminotransferase 29 U/L (12-78); Albumin Level 4.4 g/dl (3.5-5.0); Albumin/Globulin Ratio 1.5 (1.1-1.8); Alkaline Phosphatase 113 U/L (38-126); Aspartate Amino Transferase 30 U/L (14-36); Bilirubin,Total < 0.1 mg/dl (0.2-1.3); Blood Urea Nitrogen 15 mg/dl (7-17); Calcium 9.2 mg/dl (8.4-10.2); Carbon Dioxide 37 mmol/L (22.0-30.0); Chloride 96 mmol/L (98-107); Creatine Kinase 53 U/L (30-135); Estimated Glomerular Filt Rate 67 ml/min (>60); GFR (African American) 82 ML/MIN (>60); Glucose 60 mg/dl (74-100); Magnesium 2.4 mg/dl (1.6-2.3); Sodium 139 mmol/L (136-145); Total Protein,Serum 7.4 g/dl (6.3-8.2)
[2022-10-06 19:00] LABS: Thyroid Stimulating Hormone 2.79 uIU/mL (0.465-4.68)
[2022-10-06 19:08] LABS: Erythrocyte Sedimentation Rate 11 mm/hr (0-20)
== END ==
PROVIDERS: PCP Internal Medicine; Visit Provider Internal Medicine
DX: I10 Essential (primary) hypertension (principal); I25.118 Atherosclerotic heart disease of native coronary artery with other forms of angina pectoris; M79.7 Fibromyalgia; F90.9 Attention-deficit hyperactivity disorder, unspecified type; F41.0 Panic disorder [episodic paroxysmal anxiety]; M05.9 Rheumatoid arthritis with rheumatoid factor, unspecified; R60.9 Edema, unspecified; F17.209 Nicotine dependence, unspecified, with unspecified nicotine-induced disorders
CPT/HCPCS: 80053; 82550; 83735; 84443; 85025; 85651

== ENCOUNTER → 2022-10-21 17:01 | Outpatient (CLI) | payer MEDICARE, OTHER, SELFPAY ==
[2022-10-21 20:06] LABS: Anion Gap 13.4 mEq/L (5-15); Blood Urea Nitrogen 16 mg/dl (7-17); Calcium 9.7 mg/dl (8.4-10.2); Carbon Dioxide 31 mmol/L (22.0-30.0); Chloride 99 mmol/L (98-107); Estimated Glomerular Filt Rate 77 ml/min (>60); GFR (African American) 93 ML/MIN (>60); Glucose 57 mg/dl (74-100); Potassium 4.4 mmoL/L (3.5-5.1); Sodium 139 mmol/L (136-145)
== END ==
PROVIDERS: PCP Internal Medicine; Visit Provider Internal Medicine
DX: E87.6 Hypokalemia (principal)
CPT/HCPCS: 80048

== ENCOUNTER → 2022-12-19 15:47 | Outpatient (CLI) | payer MEDICARE, SELFPAY ==
--- NOTE | 2022-12-19 15:53 | XR_ITS ---
FINAL REPORT CLINICAL HISTORY: LEFT KNEE PAIN , S/P FALL SEPTEMBER 2022, swelling COMPARISON: 07/18/2022 FINDINGS: AP, lateral and oblique views of the left knee were obtained. There is no acute osseous abnormality of the left knee. The joint space is preserved. The soft tissues are normal. There is no joint effusion. IMPRESSION: No acute osseous abnormality of the left knee. Reviewed, Interpreted and Dictated by Phuong Rose MD Transcribed by Elena Gilbert Authenticated and [facility]
== END ==
PROVIDERS: PCP Internal Medicine; Visit Provider Internal Medicine
DX: M25.562 Pain in left knee (principal); W19.XXXA Unspecified fall, initial encounter
CPT/HCPCS: 73562

== ENCOUNTER 2023-04-07 14:59 | Outpatient (CLI) | payer MEDICARE, MEDICAID, SELFPAY ==
--- NOTE | 2023-04-07 | XR_ITS ---
FINAL REPORT CLINICAL HISTORY: INJURIES DUE TO FALL FINDINGS: 2 views of the right forearm were obtained. There is no acute fracture or dislocation. The joint spaces are intact. There is no soft tissue abnormality. IMPRESSION: No acute abnormality. Reviewed, Interpreted and Dictated by Chevy Sparrow III, MD Transcribed by Reilly Santos Authenticated and [facility]
--- NOTE | 2023-04-07 | XR_ITS ---
FINAL REPORT CLINICAL HISTORY: .fall in 2022 FINDINGS: 2 views of the right hip were obtained. There is no acute fracture or dislocation. The joint spaces are intact. There are no soft tissue abnormalities. IMPRESSION: No acute process. Reviewed, Interpreted and Dictated by Chevy Sparrow III, MD Transcribed by Reilly Santos Authenticated and [facility]
--- NOTE | 2023-04-07 | XR_ITS ---
FINAL REPORT CLINICAL HISTORY: .fall in 2022 FINDINGS: 2 views of the right humerus were obtained. There is no acute fracture or dislocation. There is severe superior subluxation of the humerus with erosion and remodeling of the distal clavicle. IMPRESSION: Severe superior subluxation of the humerus with erosion and remodeling of the distal clavicle likely due to chronic rotator cuff tear. Reviewed, Interpreted and Dictated by Chevy Sparrow III, MD Transcribed by Reilly Santos Authenticated and [facility]
--- NOTE | 2023-04-07 15:10 | XR_ITS ---
FINAL REPORT TECHNIQUE: Chest PA & Lateral CLINICAL HISTORY: .fall in 2022 smoker x 10 yrs FINDINGS: 2 views of the chest were performed. The heart size is normal. The mediastinum is within normal limits. There is no acute cardiopulmonary process. There are no pleural effusions. There is no pneumothorax. The bony thorax appears intact. IMPRESSION: No acute cardiopulmonary process. Reviewed, Interpreted and Dictated by Chevy Sparrow III, MD Transcribed by Reilly Santos Authenticated and [facility]
--- NOTE | 2023-04-07 15:10 | XR_ITS ---
FINAL REPORT CLINICAL HISTORY: .fall in Feb 2023 FINDINGS: 3 views of the right shoulder were obtained. There is no acute fracture or dislocation. There is severe superior subluxation of the humerus with erosion and remodeling of the distal clavicle. IMPRESSION: Severe superior subluxation of the humerus with erosion and remodeling of the distal clavicle likely due to chronic rotator cuff tear. Reviewed, Interpreted and Dictated by Chevy Sparrow III, MD Transcribed by Reilly Santos Authenticated and [facility]
--- NOTE | 2023-04-07 15:11 | XR_ITS ---
FINAL REPORT CLINICAL HISTORY: INJURIES FROM A FALL FINDINGS: 3 views of the right hand were obtained. There is no acute fracture or dislocation. There are moderate degenerative changes at the first CMC joint. There is radial subluxation of the first metacarpal at the the CMC joint. IMPRESSION: Moderate degenerative change of the first CMC joint with radial subluxation of the first metacarpal. Reviewed, Interpreted and Dictated by Chevy Sparrow III, MD Transcribed by Reilly Santos Authenticated and [facility]
== END 2023-04-07 23:59 ==
PROVIDERS: PCP Internal Medicine; Visit Provider Internal Medicine
DX: M25.511 Pain in right shoulder (principal); M79.601 Pain in right arm; R07.89 Other chest pain; M25.551 Pain in right hip; W19.XXXA Unspecified fall, initial encounter
CPT/HCPCS: 71046; 73030; 73060; 73090; 73130; 73502

== ENCOUNTER 2023-05-26 14:55 | Outpatient (CLI) | payer MEDICARE, MEDICAID, SELFPAY ==
--- NOTE | 2023-05-26 15:01 | XR_ITS ---
FINAL REPORT CLINICAL HISTORY: RT ANKLE PAIN FINDINGS: RIGHT ANKLE Three views were obtained. There is no fracture or dislocation. The joint spaces appear normal. No soft tissue abnormality is identified. IMPRESSION: No acute process. Reviewed, Interpreted and Dictated by Chevy Sparrow III, MD Transcribed by Elena Gilbert Authenticated and [facility]
== END 2023-05-26 23:59 ==
PROVIDERS: PCP Internal Medicine; Visit Provider Internal Medicine
DX: M25.571 Pain in right ankle and joints of right foot (principal)
CPT/HCPCS: 73610

== ENCOUNTER 2023-07-08 16:42 | Outpatient (CLI) | payer MEDICARE, MEDICAID, SELFPAY ==
[2023-07-08 17:33] LABS: Basophils # 0.1 K/mm3 (0-0.2); Basophils % 0.7 % (0.1-2.0); Eosinophils # 0.2 K/mm3 (0.0-0.4); Eosinophils % 1.3 % (0.1-12.0); Hematocrit 45.3 % (37.0-47.0); Hemoglobin 14.6 g/dL (12.2-16.2); Lymphocytes # 2.4 K/mm3 (0.7-4.5); Lymphocytes % 20.5 % (10-50); Mean Corpuscular HGB Conc 32.3 g/dL (31.8-35.4); Mean Corpuscular Hemoglobin 32.2 pg (27.0-31.2); Mean Corpuscular Volume 99.9 fl (81-99); Mean Platelet Volume 7.9 fl (7.4-10.4); Monocytes # 0.7 K/mm3 (0.1-1.0); Neutrophils # 8.5 K/mm3 (1.8-7.8); Neutrophils % 71.5 % (37.0-80.0); Platelet Count 380 K/mm3 (142-424); Red Blood Count 4.53 M/mm3 (4.20-5.40); Red Cell Distribution Width 13.7 % (11.5-17.5); White Blood Count 11.9 K/mm3 (4.8-10.8)
[2023-07-08 17:47] LABS: Alanine Aminotransferase 20 U/L (12-78); Albumin Level 4.5 g/dl (3.5-5.0); Albumin/Globulin Ratio 1.8 (1.1-1.8); Alkaline Phosphatase 84 U/L (38-126); Anion Gap 11.3 mEq/L (5-15); Aspartate Amino Transferase 30 U/L (14-36); Bilirubin,Total 0.5 mg/dl (0.2-1.3); Blood Urea Nitrogen 13 mg/dl (7-17); Carbon Dioxide 33 mmol/L (22.0-30.0); Chloride 99 mmol/L (98-107); Chol/HDL Ratio 3.4 (1-3.5); Cholesterol 245 mg/dl (140-200); Estimated Glomerular Filt Rate 67 ml/min (>60); GFR (African American) 81 ML/MIN (>60); Globulin 2.5 g/dL (1.3-3.2); Glucose 78 mg/dl (74-100); HDL Cholesterol 73 mg/dl (40-60); Potassium 4.3 mmoL/L (3.5-5.1); Sodium 139 mmol/L (136-145); Triglycerides 91 mg/dl (30-150); VLDL Cholesterol 18 mg/dL (0-40)
[2023-07-08 17:58] LABS: Direct LDL Cholesterol 107.21 mg/dL (100-129)
[2023-07-08 18:10] LABS: Erythrocyte Sedimentation Rate 10 mm/hr (0-20)
[2023-07-08 18:36] LABS: Vitamin B12 454 pg/mL (239-931)
[2023-07-10 08:37] LABS: RA Latex Turbid. 13.9 IU/mL (<14.0)
[2023-07-10 14:14] LABS: Anti-Cyclic Citrullinated Pept 5 units (0-19)
[2023-07-13 08:25] LABS: Antinuclear Antibodies, IFA Negative (.)
== END 2023-07-08 23:59 | disposition home or self-care (01) ==
LOC: LAB.DROPOF 16:43
PROVIDERS: PCP Internal Medicine; Visit Provider Internal Medicine
DX: I10 Essential (primary) hypertension (principal); M25.50 Pain in unspecified joint; M79.7 Fibromyalgia; M05.9 Rheumatoid arthritis with rheumatoid factor, unspecified; M35.00 Sjogren syndrome, unspecified; I25.118 Atherosclerotic heart disease of native coronary artery with other forms of angina pectoris; E78.5 Hyperlipidemia, unspecified
CPT/HCPCS: 80053; 80061; 82607; 85025; 85651; 86038; 86200; 86431

== ENCOUNTER 2023-11-04 15:24 | Outpatient (CLI) | payer MEDICARE, MEDICAID, SELFPAY ==
--- NOTE | 2023-11-04 15:25 | XR_ITS ---
FINAL REPORT TECHNIQUE: Bone mineral density was calculated of the lumbar spine and hip. CLINICAL HISTORY: Osteopenia, chronic steroid therapy COMPARISON: 10/25/2020 FINDINGS: Using L1-4, the bone mineral density of the spine is 1.101 g/cm2, corresponding to T-score of 0.5. Using the left hip, the bone mineral density of the femoral neck is 0.609 g/cm2, corresponding to a T-score of -2.1. NOTE: T-score: Standard deviation compared with peak bone mass of young adult mean. *Following the recommendations of the International Society of Bone densitometry, classification of hip BMD is based on the lower of two T-scores; total hip or femoral neck. IMPRESSION: Diminished bone mineral density of the left hip consistent with osteopenia. Normal bone mineral density of the lumbar spine, however this is likely falsely elevated secondary to sclerotic degenerative change in the lumbar spine. Reviewed, Interpreted and Dictated by Chevy Sparrow III, MD Transcribed by Jenna Escobedo Authenticated and [facility]
== END 2023-11-04 23:59 | disposition home or self-care (01) ==
LOC: RAD 15:25
PROVIDERS: PCP Internal Medicine; Visit Provider Internal Medicine
DX: Z92.241 Personal history of systemic steroid therapy (principal); M85.88 Other specified disorders of bone density and structure, other site
CPT/HCPCS: 77080

== ENCOUNTER 2023-11-25 10:49 | Outpatient (CLI) | payer MEDICARE, MEDICAID, SELFPAY ==
--- NOTE | 2023-11-25 10:50 | CT_ITS ---
FINAL REPORT TECHNIQUE: Axial CT images of the abdomen and pelvis were obtained before and after the administration of IV contrast. This study was performed with techniques to keep radiation doses as low as reasonably achievable (ALARA). Individualized dose reduction techniques using automated exposure control or adjustment of mA and/or kV according to the patient's size were employed. CLINICAL HISTORY: Follow-up of hemangiomas COMPARISON: 10/14/2019 FINDINGS: Abdomen: The lung bases are clear. The heart is normal in size. There is a mass in the left liver dome measuring 27 mm in size, stable when compared to the prior CT of 2019, and consistent in appearance with a hemangioma. There is another mass in the liver dome somewhat more lateral, measuring 14 mm, was previously 9 mm. This mass does not have the classic imaging characteristics of a hemangioma, but is most likely benign. . The spleen is unremarkable. No adrenal masses present. The pancreas has an unremarkable appearance. The kidneys enhance normally. The aorta is normal in caliber. Mild vascular calcifications are present. There is no free fluid or adenopathy. No mass or abnormal fluid collection is seen. Precontrast images demonstrate no evidence of nephrolithiasis. Pelvis: The appendix is normal in appearance. The uterus has been surgically resected. The urinary bladder is unremarkable. No inflammatory process is seen. There is no evidence of mass or adenopathy. There is no evidence of bowel obstruction. IMPRESSION: 27 mm mass in the left liver dome is stable since the prior CT of 2019, and is consistent with a hemangioma. The other mass in the liver dome somewhat more lateral measures 14 mm, was previously 9 mm. This mass does not have classic imaging characteristics of a hemangioma, but is most likely benign. Recommend additional follow-up CT in 6 to 12 months or liver MRI for further evaluation. Reviewed, Interpreted and Dictated by Chevy Sparrow III, MD Transcribed by Jenna Escobedo Authenticated and [facility]
[2023-11-25] MEDS: IOPAMIDOL-370 (76%);100ML BOTTLE 75 ML IV (11:01)
[2023-11-25] MEDS: SODIUM CHLORIDE 0.9% 10ML SYR (RAD ONLY) 10 ML IV (11:01)
== END 2023-11-25 23:59 | disposition home or self-care (01) ==
LOC: RAD 10:50
PROVIDERS: PCP Internal Medicine; Visit Provider Internal Medicine
DX: D18.03 Hemangioma of intra-abdominal structures (principal)
CPT/HCPCS: 74178; Q9967

== ENCOUNTER 2024-01-01 17:19 | Outpatient (CLI) | payer MEDICARE, SELFPAY ==
--- NOTE | 2024-01-01 17:29 | MR_ITS ---
PROCEDURE INFORMATION: Exam: MR Head Without Contrast Exam date and time: 01/01/2024 5:33 PM Age: 48 years old Clinical indication: Pain; Headache; Additional info: Empty sella syndrome TECHNIQUE: Imaging protocol: Magnetic resonance imaging of the head without contrast. COMPARISON: MR HEAD/BRAIN WO/W CON 06/10/2021 5:06 PM FINDINGS: Brain: No acute infarct. No hemorrhage. Minimal foci of T2/FLAIR hyperintense signal within the cerebral white matter. No edema. Cerebral ventricles: Normal. No ventriculomegaly. Pituitary gland and sella: Normal appearance of the pituitary gland. Bones: Unremarkable. Paranasal sinuses: Normal as visualized. No acute sinusitis. Mastoid air cells: Normal as visualized. No mastoid effusion. Orbital cavities: Unremarkable. Soft tissues: Unremarkable. IMPRESSION: 1. No acute infarct. 2. Minimal foci of T2/FLAIR hyperintense signal within the cerebral white matter, a non-specific finding, which may be related to chronic small vessel ischemic changes, vasculopathies (vasculitis, migraines), demyelinating process, or the sequelae of prior infection/inflammation.
== END 2024-01-01 23:59 | disposition home or self-care (01) ==
PROVIDERS: PCP Internal Medicine; Visit Provider Internal Medicine
DX: E23.6 Other disorders of pituitary gland (principal)
CPT/HCPCS: 70551

== ENCOUNTER 2024-02-04 17:17 | Outpatient (CLI) | payer MEDICARE, SELFPAY ==
[2024-02-04 17:05] LABS: Anion Gap 9.6 mEq/L (5-15); Blood Urea Nitrogen 10 mg/dl (7-17); Calcium 9.5 mg/dl (8.4-10.2); Carbon Dioxide 39 mmol/L (22.0-30.0); Chloride 95 mmol/L (98-107); Estimated Glomerular Filt Rate 77 ml/min (>60); GFR (African American) 93 ML/MIN (>60); Glucose 59 mg/dl (74-100); Magnesium 1.9 mg/dl (1.6-2.3); Potassium 3.6 mmoL/L (3.5-5.1); Sodium 140 mmol/L (136-145)
[2024-02-04 17:33] LABS: Thyroid Stimulating Hormone 0.99 uIU/mL (0.465-4.68)
== END 2024-02-04 23:59 | disposition home or self-care (01) ==
LOC: LAB.DROPOF 17:17
PROVIDERS: PCP Internal Medicine; Visit Provider Internal Medicine
DX: M62.838 Other muscle spasm (principal); I10 Essential (primary) hypertension; R60.0 Localized edema
CPT/HCPCS: 80048; 83735; 84443

== ENCOUNTER 2024-04-14 14:53 | Outpatient (CLI) | payer MEDICARE, MEDICAID, SELFPAY ==
--- NOTE | 2024-04-14 15:00 | CA_ITS ---
FINAL REPORT TECHNIQUE: Ultrasound images of the deep venous system were obtained from the left groin to the calf veins. CLINICAL HISTORY: LEFT CALF PAIN X SEVERAL DAYS,NKI,PT ON ASA FINDINGS: The deep venous system is normally compressible. Normal flow is identified. IMPRESSION: No evidence of left lower extremity DVT. Reviewed, Interpreted and Dictated by Otoniel Booker MD Transcribed by Elena Gilbert Authenticated and [facility]
== END 2024-04-14 23:59 | disposition home or self-care (01) ==
LOC: RT 14:55
PROVIDERS: PCP Internal Medicine; Visit Provider Internal Medicine
DX: M79.662 Pain in left lower leg (principal)
CPT/HCPCS: 93971

== ENCOUNTER 2024-07-18 16:48 | Outpatient (CLI) | payer MEDICARE, MEDICAID, SELFPAY ==
[2024-07-18 16:43] LABS: Basophils % 0.3 % (0.1-2.0); Eosinophils % 0.2 % (0.1-12.0); Hematocrit 41.3 % (37.0-47.0); Hemoglobin 13.4 g/dL (12.2-16.2); Lymphocytes # 2.5 K/mm3 (0.7-4.5); Lymphocytes % 19.4 % (10-50); Mean Corpuscular HGB Conc 32.4 g/dL (31.8-35.4); Mean Corpuscular Hemoglobin 31.3 pg (27.0-31.2); Mean Corpuscular Volume 96.5 fl (81-99); Monocytes # 1.1 K/mm3 (0.1-1.0); Monocytes % 8.8 % (1.7-9.3); Neutrophils # 9.1 K/mm3 (1.8-7.8); Neutrophils % 70.9 % (37.0-80.0); Nucleated Red Blood Cells # 0 10^3/uL; Nucleated Red Blood Cells % 0 %; Platelet Count 345 K/mm3 (142-424); Red Blood Count 4.28 M/mm3 (4.20-5.40); Red Cell Distribution Width 12.8 % (11.5-17.5); Red Cell Distribution Width-SD 45.2 fL; White Blood Count 12.9 K/mm3 (4.8-10.8)
[2024-07-18 17:17] LABS: Albumin Level 4.3 g/dl (3.5-5.0); Chloride 98 mmol/L (98-107); Potassium 4.4 mmoL/L (3.5-5.1); Sodium 138 mmol/L (136-145)
[2024-07-18 17:20] LABS: Alanine Aminotransferase 68 U/L (12-78); Albumin/Globulin Ratio 1.5 (1.1-1.8); Alkaline Phosphatase 80 U/L (38-126); Anion Gap 11.4 mEq/L (5-15); Aspartate Amino Transferase 52 U/L (14-36); Bilirubin,Total 0.2 mg/dl (0.2-1.3); Blood Urea Nitrogen 19 mg/dl (7-17); Calcium 10.4 mg/dl (8.4-10.2); Carbon Dioxide 33 mmol/L (22.0-30.0); Cholesterol 213 mg/dl (140-200); Estimated Glomerular Filt Rate 77 ml/min (>60); GFR (African American) 93 ML/MIN (>60); Globulin 2.9 g/dL (1.3-3.2); Glucose 64 mg/dl (74-100); Total Protein,Serum 7.2 g/dl (6.3-8.2); Triglycerides 93 mg/dl (30-150); VLDL Cholesterol 19 mg/dL (0-40)
[2024-07-18 17:29] LABS: Chol/HDL Ratio 1.8 (1-3.5); HDL Cholesterol 117 mg/dl (40-60)
[2024-07-18 17:32] LABS: Direct LDL Cholesterol 71.97 mg/dL (100-129)
[2024-07-18 17:55] LABS: Thyroid Stimulating Hormone 0.85 uIU/mL (0.465-4.68)
[2024-07-25 20:10] LABS: Rheumatoid Factor IGA < 7 U (<7)
== END 2024-07-18 23:59 | disposition home or self-care (01) ==
LOC: LAB.DROPOF 16:48
PROVIDERS: PCP Internal Medicine; Visit Provider Internal Medicine
DX: E78.5 Hyperlipidemia, unspecified (principal); M35.00 Sjogren syndrome, unspecified; M06.9 Rheumatoid arthritis, unspecified; R53.1 Weakness; I10 Essential (primary) hypertension; M62.838 Other muscle spasm
CPT/HCPCS: 80053; 80061; 83735; 84443; 85025; 86431

== ENCOUNTER 2024-07-26 09:12 | Outpatient (CLI) | payer MEDICARE, MEDICAID, SELFPAY ==
--- NOTE | 2024-07-26 09:15 | CT_ITS ---
FINAL REPORT TECHNIQUE: Pre-and postcontrast axial imaging of the abdomen and pelvis was obtained.This study was performed with techniques to keep radiation doses as low as reasonably achievable, (ALARA). Individualized dose reduction technique using automated exposure control or adjustment of mA and/or kV according to the patient's size were employed. CLINICAL HISTORY: hemanginoma 6 month follow up COMPARISON: 11/25/2023 FINDINGS: There is a 3 mm left lower lobe pulmonary nodule, best seen on image #1 of series 5, stable when compared to prior examinations. The lung bases are otherwise clear. There are 2 lesions in the hepatic dome, also seen on the prior exam of 11/25/2023. The more lateral lesion measures 31 mm in size, the more medial lesion measures 13 mm in size, unchanged in size. The lateral lesion demonstrates characteristic enhancement of a hemangioma. The medial lesion is also likely a hemangioma, although slightly atypical in appearance on delayed images. The gallbladder is present. The spleen, adrenal glands, and pancreas are unremarkable. There is no hydronephrosis or solid renal mass. Abdominal GI tract is unremarkable. There is no lymphadenopathy or ascites. The pelvic organs and pelvic portions of the GI tract, including the appendix, are within normal limits. There is no lymphadenopathy or ascites. No acute osseous abnormalities identified. The uterus is absent. Colonic diverticulosis is noted without evidence of acute inflammatory change. IMPRESSION: The liver lesions noted on several prior CT examinations are stable in size and appearance, the larger diagnostic for a hepatic hemangioma. The other lesion most likely represents a hepatic hemangioma, stable in size and appearance since at least 2019. Reviewed, Interpreted and Dictated by Phuong Rose MD Transcribed by Jenna Escobedo Authenticated and [facility]
[2024-07-26] MEDS: SODIUM CHLORIDE 0.9% 10ML SYR (RAD ONLY) 10 ML IV (09:49)
[2024-07-26] MEDS: IOPAMIDOL-370 (76%);100ML BOTTLE 75 ML IV (09:49)
== END 2024-07-26 23:59 | disposition home or self-care (01) ==
LOC: RAD 09:13
PROVIDERS: PCP Internal Medicine; Visit Provider Internal Medicine
DX: D18.03 Hemangioma of intra-abdominal structures (principal)
CPT/HCPCS: 74178; Q9967

== ENCOUNTER 2024-08-03 12:37 | Outpatient (CLI) | payer MEDICARE, MEDICAID, SELFPAY ==
--- NOTE | 2024-08-03 13:00 | CA_ITS ---
FINAL REPORT TECHNIQUE: Color Doppler, duplex Doppler and israel scale sonography of the bilateral neck arterial vasculature was performed. Velocities were measured in the carotid arteries. Stenosis evaluation based on the validated velocity criteria. CLINICAL HISTORY: DIZZINESS,BARON,LUPUS FINDINGS: The peak systolic velocity of the right common carotid artery is 90 cm/s. The peak systolic velocity of the right internal carotid artery is 108 cm/s and end diastolic velocity 41 cm/s. The ICA/CCA ratio is 1.51. A [id number] amount of plaque is present. The right external carotid artery is patent. The right vertebral artery is patent with antegrade flow. The peak systolic velocity of the left common carotid artery is 101 cm/s. The peak systolic velocity of the left internal carotid artery is 101 cm/s and end diastolic velocity 46 cm/s. The ICA/CCA ratio is 1.00. A [id number] amount of plaque is present. The left external carotid artery is patent.The left vertebral artery is patent with antegrade flow. IMPRESSION: Less than 50% bilateral carotid stenoses. Bilateral patent vertebral arteries with antegrade flow. If indicated, CTA or MRA could further evaluate. Reviewed, Interpreted and Dictated by Otoniel Booker MD Transcribed by Jacinda Baker Authenticated and [facility]
== END 2024-08-03 23:59 | disposition home or self-care (01) ==
LOC: RT 12:39
PROVIDERS: PCP Internal Medicine; Visit Provider Internal Medicine
DX: I65.23 Occlusion and stenosis of bilateral carotid arteries (principal); I65.29 Occlusion and stenosis of unspecified carotid artery
CPT/HCPCS: 93880

== ENCOUNTER 2024-10-17 17:09 | Outpatient (CLI) | payer MEDICARE, MEDICAID, SELFPAY ==
--- OUTSIDE RECORDS SUMMARY | 2024-10-04 20:30 | XMS_ITS | Encounter Summary ---
Author Organization [place] [address] Care Team Providers Care Hand Candle Molder Name Role Phone Aime Atkinson MD Primary Care Provider [phone] Nel Levine MD Unavailable [phone] Reason for Visit * Reason Comments Extremity Laceration Left hernández Encounter Details Date Type Department Care Team (Late st Contact Info) Description 10/04/2024 8:30 PM EDT - 10/04/2024 10:09 PM EDT [facility] [address] [place] [address] Marck Ellis MD [address] [...] drink = 0.6 oz pur e alcohol) [facility] Utilities Answer Date Recorded In the past [...] Date Recorded PHQ-2 Total Score 0 10/16/2023 [facility] - Occupational Stress [...] money to get more. Never true 10/16/2023 [facility] IP Transportation Answer D ate Recorded [...] 8:28 PM EDT Jennifer Post RN * [place] Suicide Severity Rating Scale (Q shift for [...] (ASTELIN) 137 mcg (0.1 %) Nasl Aerosol, [place] 1 [place] in each nostril 2 times daily. Use [...] mouth daily. fluticasone (FLONASE) 50 mcg/actuation Nasl [place], Suspension 2 Sprays by Nasal route daily. [...] Means Destination Comment s Home or Self Senior Living documented in this encounter ED Notes * [...] (ASTELIN) 137 mcg (0.1 %) Nasl Aerosol, [place] 1 [place] in each nostril 2 times daily. Usein [...] Provider, Historical fluticasone (FLONASE) 50 mcg/actuation Nasl [place], Suspension 2 Sprays by Nasal route daily. [...] (coronary artery disease) CHF (congestive heart failure) ([facility]) Chronic pain Depression Fibromyalgia Hypertension PAD (peripheral artery disease) RA (rheumatoid arthritis) ([facility]) Social History: reports that she quit smoking [...] poor cosmetic result and poor wound healing [place] protocol: Patient identity confirmed: Verbally with patient [...] Gran% 0.4 % Lymph Percent 23.2 % [place] Percent 8.8 % Eos Percent 0.9 % Baso Percent 0.2 % Neut # 7.6 (H) 1.6 - 6.1 x10(3)/mcL IMMGRAN# 0.0 0.0 - 0.1 x10(3)/mcL Lymph # 2.7 1.2 - 3.9 x10(3)/mcL [place] # 1.0 (H) 0.3 - 0.9 x10(3)/mcL [...] BASELINE W/ REFLEX Result Value Ref Range [id number]-[id number] 9 <14 ng/L Narrative Ingestion of radha [...] physician to follow. Impression [facility] Test Date: 2024-10-04 Pat Name: LUIS FREY Department: DEPID Room: 11 Gender: Female Specimen Boss: Yasmin : 1975 Requested By: GOMEZ Ron Order Number: [id number] Reading MD: Measurements Intervals [place] Rate: 89 P: 57 HI: 156 QRS: 12 QRSD: 87 T: 52 [...] MD - 10/04/2024 10:06 PM EDT Attending Perioperative Nurse Note: I have participated in the care of this patient and have reviewed the pertinent clinical information including physical exam findings, labs, and radiographic studies. I have reviewed and/or discussedthe plan of care, of which I personally approve and take responsibility for the patient management. This patient was seen in coordination with the PA/BRANCH BILLING PAYROLL CLERK. We discussed the management plan and testing [...] Laceration Repair (10/04/2024 9:52 PM EDT) Narrative [facility] - 10/04/2024 9:52 PM EDT Marck Ellis MD 10/04/2024 10:06 PM Laceration Repair Date/Time: 10/04/2024 9:52 PM Performed by: Gomez Bailey APRN Authorized by: Gomez Bailey APRN Consent: Consent obtained: Verbal Consent given by: Patient Risks discussed: Infection, poor cosmetic result and poor wound healing [place] protocol: Patient identity confirmed: Verbally with patient [...] APRN PROCEDURE/MINOR SURGICAL O RDERABLES Final Result [facility] [address] [place] [address] * XR CHEST AP PORTABLE [...] 477(H) <=192 pg/mL 10/04/2024 9:26 PM EDT [facility] Blood VENOUS BLOOD / Unknown Venipuncture / Unknown 10/04/2024 8:51 PM EDT 10/04/2024 8:55 PM EDT Narrative [facility] - 10/04/2024 9:26 PM EDT [...] CHEMISTRY ORDERABLES Final Result Performing Organization Address [facility] Co de Phone Number [facility] [address] [place] [address] * TROPONIN-T HIGH SENSITIVITY BASELINE W/ REFLEX (10/04/2024 8:51 PM EDT) [id number]-sYjjtecvo-S 9 <14 ng/L 10/04/2024 9:26 PM EDT [facility] Blood VENOUS BLOOD / Unknown Venipuncture / Unknown 10/04/2024 8:51 PM EDT 10/04/2024 8:55 PM EDT Narrative [facility] - 10/04/2024 9:26 PM EDT Ingestion of radha doses of biotin (>5 mg/day) taken within 8 hours of drawing blood sample can interfere with this immunoassay test. Gomez Bailey WAREHOUSE DELIVERY DRIVER CHEMISTRY ORDERABLES Final Result Performing Organization Address [facility] de Phone Number [facility] [address] [place] [address] * BASIC METABOLIC PANEL (10/04/2024 8:51 PM EDT) Sodium 138 136 - 145 mmol/L 10/04/2024 9:16 PM EDT [facility] Potassium 3.5 3.5 - 5.0 mmol/L 10/04/2024 9:16 PM EDT [facility] Chloride 102 98 - 107 mmol/L 10/04/2024 9:16 PM EDT [facility] Total CO2 25 22 - 29 mmol/L 10/04/2024 9:16 PM EDT [facility] Anion Gap 11 7 - 16 mmol/L 10/04/2024 9:16 PM EDT [facility] Calcium 9.1 8.6 - 10.4 mg/dL 10/04/2024 9:16 PM EDT [facility] Glucose Lvl 70 70 - 99 mg/dL 10/04/2024 9:16 PM EDT [facility] BUN 15 6 - 20 mg/dL 10/04/2024 9:16 PM EDT [facility] Creatinine 0.99 0.51 - 1.30 mg/dL 10/04/2024 9:16 PM EDT [facility] eGFR (CKD-EPIcr 2020) 70 >=60 mL/min/1.7 3 m2 10/04/2024 9:16 PM EDT [facility] Comment:Estimated GFR was ca lculated using the CKD-EPIcr (2020) equation refit without race. The equation is recommended by the National Kidney Foundation - [place] [employer] Nephrology Task Force. Blood VENOUS BLOOD / Unknown Venipuncture / Unknown 10/04/2024 8:51 PM EDT 10/04/2024 8:55 PM EDT us Gomez Bailey WAREHOUSE DELIVERY DRIVER CHEMISTRY ORDERABLES Final Result Performing Organization Address City/State/[facility] Co de Phone Number [facility] [address] [place], [place] [id number] * (ABNORMAL) CBC WITH DIFF (10/04/2024 8:51 PM EDT) WBC 11.4(H) 3.7 - 10.3 x10(3)/mcL 10/04/2024 8:58 PM EDT [facility] RBC 4.16 3.90 - 5.20 x10(6)/mcL 10/04/2024 8:58 PM EDT [facility] Hgb 13.0 11.2 - 15.7 g/dL 10/04/2024 8:58 PM EDT [facility] Hct 40.5 34.0 - 45.0 % 10/04/2024 8:58 PM EDT [facility] MCV 97.4 80.0 - 100.0 fL 10/04/2024 8:58 PM EDT [facility] MCH 31.3 26.0 - 34.0 pg 10/04/2024 8:58 PM EDT [facility] MCHC 32.1 30.7 - 35.5 g/dL 10/04/2024 8:58 PM EDT [facility] RDW 12.7 <=14.9 % 10/04/2024 8:58 PM [facility] Platelet 314 155 - 369 x10(3)/[facility] 10/04/2024 8:58 PM [facility] MPV 9.3 8.8 - 12.5 fL 10/04/2024 8:58 PM [facility] Neut Percent 66.5 % 10/04/2024 8:58 PM [facility] Comment:Neutrophils equals s egs plus bands Imm Gran% 0.4 % 10/04/2024 8:58 PM [facility] Comment:Automated count of m etamyelocytes, myelocytes and promyelocytes. Lymph Percent 23.2 % 10/04/2024 8:58 PM [facility] [place] Percent 8.8 % 10/04/2024 8:58 PM [facility] Eos Percent 0.9 % 10/04/2024 8:58 PM [facility] Baso Percent 0.2 % 10/04/2024 8:58 PM [facility] Neut # 7.6(H) 1.6 - 6.1 x10(3)/[facility] 10/04/2024 8:58 PM [facility] Comment:Neutrophils equals s egs plus bands IMMGRAN# 0.0 0.0 - 0.1 x10(3)/[facility] 10/04/2024 8:58 PM [facility] Comment:Automated count of m etamyelocytes, myelocytes and promyelocytes. An absolute IG <0.1 is reported as 0.0. Lymph # 2.7 1.2 - 3.9 x10(3)/[facility] 10/04/2024 8:58 PM [facility] [place] # 1.0(H) 0.3 - 0.9 x10(3)/[facility] 10/04/2024 8:58 PM [facility] Eos# 0.1 0.0 - 0.5 x10(3)/[facility] 10/04/2024 8:58 PM [facility] Baso # 0.0 0.0 - 0.1 x10(3)/[facility] 10/04/2024 8:58 PM [facility] Blood VENOUS BLOOD / Unknown Venipuncture / Unknown 10/04/2024 8:51 PM EDT 10/04/2024 8:55 PM EDT us Gomez Bailey APRN HEMATOLOGY ORDERABLES Makayla l Result [facility] [address] [place] [address] * EK EKG 12 LEAD (10/04/2024 8:46 PM EDT) Anatomical Region Laterality Modality Electrocardiogra phy 10/04/2024 8:56 PM EDT Impressions 10/04/2024 10:17 PM EDT [facility] Test Date: 2024-10-04 Pat Name: LUIS FREY Department: DEPID Room: 11 Gender: Female Specimen Boss: : 1975 Requested By: GOMEZ Ron Order Number: [id number] Reading MD: Reji Kay Measurements Intervals [place] Rate: 89 P: 57 HI: 156 QRS: 12 QRSD: 87 T: 52 QT: 362 QTc: 442 Interpretive Statements SINUS RHYTHM Electronically Signed On 10-04-2024 22:17:12 EDT by Reji Kay Narrative Procedure Note Reji Kay MD - 10/04/2024 [place]ION [facility] [place] Test Date: 2024-10-04 Pat Name: LUIS ALEJO Department: DEPID Room: 11 Gender: Female Specimen Boss: Ts : 1975 Requested By: GOMEZ Ron Order Number: [id number] Reading : Reji Kay Measurements Intervals [place] Rate: 89 P: 57 HI: 156 QRS: 12 QRSD: 87 T: 52 QT: 362 QTc: 442 Interpretive Statements SINUS RHYTHM Electronically Signed On 10-04-2024 22:17:12 EDT by Reji Kay us Gomez Bailey APRN IMG ECG ORDERABLES Final R esult * GLUCOSE METER POC (10/04/2024 8:46 PM EDT) [facility] Signature Glucose Meter POC 89 70 - 100 mg/dL 10/04/2024 8:48 PM EDT [facility] Sample Type Capillary 10/04/2024 8:48 PM EDT [facility] Patient Status Non-Critical Patient 10/04/2024 8:48 PM EDT [facility] Blood BLOOD SPECIMEN / Unknown 10/04/2024 8:46 PM EDT 10/04/2024 8:48 PM EDT Marck Ellis MD POINT OF CARE TEST ORDERABLES F inal Result [facility] [address] [place], [place] [phone] documented in this encounter Visit Diagnoses Diagnosis [...] 10/04/2024 documented in this encounter Care Teams Hand Candle Molder Relationship Specialty Start Date End Date Aime Atkinson MD [address] [facility] [address] [place] [id number] PCP - General Internal Medicine 04/29/16 Nel Levine MD [address] [address] Physician Internal Medicine-Rheumatology 10/08/16 documented as of this encounter
--- OUTSIDE RECORDS SUMMARY | 2024-10-12 09:00 | XMS_ITS | Encounter Summary ---
Author Organization [facility] Address [address] [place] [address] Care Team Providers Care Manager Speech Name Role Phone Aime Atkinson MD Primary Care Provider [phone] Reason for Visit * Reason Comments Consult Systemic involvement of connective tissue, unspecified * Consultation (Routine) - Closed Specialty Diagnoses / Procedures Referred By Contac t Referred To Contact Rheumatology Diagnoses Systemic involvement of connective tissue, unspecified Aime Atkinson MD [address] [facility] [address] [place] [address] Phone: tel: fax: Referral ID Status Reason Start Date Expiration Date V isits Requested Visits Authorized [id number] Closed Specialty Services Required 08/25/2024 02/24/2026 1 1 Encounter Details Date Type Department Care Team (Late st Contact Info) Description 10/12/2024 9:00 AM EDT [facility] [address] [place] [address] Melisa Jeffers MD [address] [place] [address] Polyarthralgia (Primary Dx); Ankylosing spondylitis of multiple sites in spine (CMS/HCC) Social History Tobacco Use Types Packs/Day Years Used Date Smoking Tobacco: Former Cigarettes 1 17 S tarted: 2008 Passive Smoke Exposure: Past Smokeless Tobacco: Never Tobacco Cessation:Counseling Given: Not Answered Alcohol Use Standard Drinks/Week Comments Never 0 (1 standard drink = 0.6 oz pur e alcohol) PHQ-2 Answer Date Recorded Patient Health Questionnaire-2 Score 0 10/12/2024 AUDIT-C Answer Date Recorded Q1: How often do you have a drink containing alcohol? Never 10/12/2024 Q2: How many drinks containi ng alcohol do you have on a typical day when you are drinking? Patient does not drink Q3: How often do you have si x or more drinks on one occasion? Never 10/12/2024 Comments Unknown Sex and Gender Information Value Date Recorded Sex Assigned at Not on file Legal Sex Female 8:24 PM EDT Gender Identity Not on file Sexual Orientation Not on file documented as of this encounter Last Filed Vital Signs Vital Sign Reading Time Taken Comments Blood Pressure 128/76 10/12/2024 9:21 AM EDT Pulse 73 10/12/2024 9:21 AM EDT Temperature 36.7 C (98 F) 10/12/2024 9:21 AM EDT Respiratory Rate 16 10/12/2024 9:21 AM EDT Oxygen Saturation 100% 10/12/2024 9:21 AM EDT Inhaled Oxygen Concentration - - Weight 63.5 kg (140 lb) 10/12/2024 9:21 AM EDT Height 152.4 cm (5') 10/12/2024 9:21 AM EDT Body Mass Index 27.34 10/12/2024 9:21 AM EDT documented in this encounter Functional Status * AUDIT-C Score Answer Date of Assessment Author 0 10/12/2024 9:26 AM EDT Benji Lloyd * Question Answer Date of Assessment Author Q1: How often do you have a drink containing alcohol? Never 10/12/2024 9:26 AM EDT Alana Lloyd Q2: How many drinks containing alcohol do you have on a typical day when you are drinking? Patient does not drink 10/12/2024 9:26 AM EDT Alana Lloyd Q3: How often do you have six or more drinks on one occasion? Never 10/12/2024 9:26 AM EDT Alana Lloyd * Over the past 2 weeks, how often have you been bothered by any of the following problems? Question Answer Date of Assessment Author Little interest or pleasure in doing things Not at all 10/12/2024 9:23 AM RANDIT Alana Lloyd Feeling down, depressed, or hopeless Not at all 10/12/2024 9:23 AM RANDIT Alana Lloyd Patient Health Questionnaire -2 Score 0 10/12/2024 9:23 AM EDT Alana Lloyd documented as of this encounter Miscellaneous Notes * Progress Notes - Melisa Jeffers MD - 10/12/2024 9:00 AM EDT Rheumatology New Consult Note Yoly Frey is a 49 y.o. female who was referred to rheumatology by Aime Atkinson MD for evaluation of Generalized body ache, joint pain and mobility issues. Patient reports that for more than 2 decades she has been having multiple issues including rep turd tendons, loss of range of motion inbilateral shoulders, joint swelling and joint pain. She feels joint pain and pretty much all jointsincluding her shoulders, elbows, wrists, hands, knees, ankle, spine. She reports using steroid Dosepaks 4-6 times in last 12 months to calm down inflammation and to be able to function. At this pointit is very hard for the patient to even put her socks/ shoes on. She walks with significant difficulty with baby steps due to joint pain. She also reports history of multiple dislocations including basis of the both thumbs especially right. Patient reports similar symptoms in her twin sister who was also diagnosed with lupus. Patient has significant hair loss. Denies photosensitive skin rash. But patient reports bruising very easily without being on blood thinners. Also reports history of congestive heart failure and diastolic dysfunction. Family history positive for lupus in the sister who has twin sister. Patient also reports having Raynaud's. Also endorses significant constipation. Patient also endorses significant dryness of eyes and dryness of mouth, she is also losing a lot ofher dentition. Subjective Review of systems: 14 point ROS was done, negative other than mentioned in HPI. Objective Allergies[1] Past Medical History[2] Surgical History[3] Family History[4] Social History Tobacco Use Smoking status: Former Average packs/day: 1 pack/day for 17.0 years (17.0 ttl pk-yrs) Types: Cigarettes Start date: 2007 Passive exposure: Past Smokeless tobacco: Never Substance Use Topics Alcohol use: Never MEDICATIONS: Medications Ordered Prior to Encounter[5] Results: Legacy Encounter on 07/01/2018 Component Date Value Differential Type 07/01/2018 AUTOMATED Neutrophils % 07/01/2018 57 Lymphocytes 07/01/2018 34 Monocytes 07/01/2018 7 Eosinophils 07/01/2018 1 Basophils 07/01/2018 1 Immature Granulocytes % 07/01/2018 0 ABS Neutrophil 07/01/2018 3.96 ABS Lymphocyte 07/01/2018 2.32 ABS Monocyte 07/01/2018 0.51 ABS Eosinophil 07/01/2018 0.04 ABS Basophil 07/01/2018 0.05 Immature Granulocyte Abs* 07/01/2018 0.02 WBC Count 07/01/2018 6.90 RBC Count 07/01/2018 3.68 (L) HGB 07/01/2018 11.9 HCT 07/01/2018 35.5 Platelet Count 07/01/2018 282 MCV 07/01/2018 97 MCH 07/01/2018 32.3 (H) MCHC 07/01/2018 33.5 RDW 07/01/2018 11.7 MPV 07/01/2018 10.2 NRBC COUNT 07/01/2018 0.0 Glucose, Plasma 07/01/2018 88 BUN, Plasma 07/01/2018 7 Creatinine, Plasma 07/01/2018 0.62 BUN/Creatinine Ratio 07/01/2018 11 Sodium, Plasma 07/01/2018 140 Potassium, Plasma 07/01/2018 4.1 Chloride, Plasma 07/01/2018 105 CO2, Plasma 07/01/2018 26 Anion Gap 07/01/2018 9 Calcium, Plasma 07/01/2018 9.0 AST, Plasma 07/01/2018 17 ALT, Plasma 07/01/2018 13 Alkaline Phosphatase, Pl* 07/01/2018 62 Total Bilirubin, Plasma 07/01/2018 0.3 Total Protein 07/01/2018 6.7 Albumin, Plasma 07/01/2018 3.6 eGFR 07/01/2018 >60 eGFR, if AFR/AM 07/01/2018 >60 Currently available Rheumatologic testing values noted below: Lab Results Component Value Date RF 11 10/12/2024 WARREN 12/29/2017 Negative Reference range: Negative (NOTE) WARREN IFA is a first line screen for detecting the presence of up to approximately 150 autoantibodies in various autoimmune diseases. A negative WARREN IFA result suggests WARREN-associated autoimmune diseases are not present at this time. Visit Physician FAQs for interpretation of all antibodies in the [place], prevalence, and association with diseases at: [email or web address] CRP <3.0 10/12/2024 CCPIGG <5.0 12/29/2017 Lab Results Component Value Date C3 116 10/12/2024 C4 25 10/12/2024 Physical Exam 04/24/2014 1:36 PM 05/22/2014 2:22 PM 06/26/2014 2:44 PM 10/13/2014 8:01 AM 12/24/2017 11:59 AM 07/01/2018 9:16 AM 10/12/2024 9:21 AM Vitals Systolic 129 134 128 Diastolic 76 80 76 Heart Rate 73 75 73 Temp 36.8 C 36.6 C 36.7 C Resp 14 16 Height (cm) 154.9 cm 154.9 cm 154.9 cm 154.9 cm 154.9 cm 154.9 cm 152.4 cm Weight (kg) 72.12 kg 72.58 kg 70.31 kg 68.24 kg 60.7 kg 63.5 kg 63.504 kg BMI 30.04 kg/m2 30.23 kg/m2 29.29 kg/m2 28.43 kg/m2 25.28 kg/m2 26.45 kg/m2 27.34 kg/m2 BSA (m2) 1.76 m2 1.77 m2 1.74 m2 1.71 m2 1.62 m2 1.65 m2 1.64 m2 Physical Exam HENT: Head: Normocephalic and atraumatic. Nose: Nose normal. Mouth/Throat: Pharynx: Oropharynx is clear. Eyes: General: Right eye: No discharge. Left eye: No discharge. Cardiovascular: Rate and Rhythm: Normal rate. Heart sounds: No friction rub. Pulmonary: Effort: Pulmonary effort is normal. Breath sounds: Normal breath sounds. Abdominal: Palpations: Abdomen is soft. Tenderness: There is no abdominal tenderness. Musculoskeletal: General: Tenderness present. Right shoulder: Tenderness present. Decreased range of motion. Left shoulder: Tenderness present. Decreased range of motion. Right upper arm: Tenderness present. Left upper arm: Tenderness present. Right elbow: Tenderness present. Left elbow: Tenderness present. Right forearm: Normal. Left forearm: Normal. Right wrist: Tenderness present. Left wrist: Tenderness present. Right hand: Deformity and tenderness present. Left hand: Deformity and tenderness present. Right knee: Tenderness present over the medial joint line. Left knee: Tenderness present over the medial joint line. Right ankle: Tenderness present. Left ankle: Tenderness present. Skin: General: Skin is warm and dry. Neurological: Mental Status: She is alert and oriented to person, place, and time. Psychiatric: Mood and Affect: Mood normal. Behavior: Behavior normal. Assessment Diagnosis Plan 1. Polyarthralgia Rheumatoid Factor, Plasma Cyclic Citrul Peptide Antibody IgG ANTI NUCLEAR AB HLA B27 Typing XR Hand and Wrist Bilateral 2 Views CBC and differential Comprehensive metabolic panel Hepatitis B Surface Antigen Hepatitis C Antibody Quantiferon TB Gold Plus XR Foot Left 3+ Views XR Foot Right 3+ Views XR Knee Right 1 or 2 Views XR Knee Left 1 or 2 Views XR Shoulder Right 2+ Views XR Shoulder Left 2+ Views Sedimentation Rate, Automated C-reactive protein ANCA Vasculitis profile SSB (La) (DIDI) Antibody, IgG Double-Stranded DNA (dsDNA) Antibody, IgG by IFA C3 Complement C4 Complement SSA 52 and 60 (Ro) (DIDI) Antibodies, IgG Mukherjee (DIDI) Antibody, IgG SSB (La) (DIDI) Antibody, IgG 2. Ankylosing spondylitis of multiple sites in spine (CMS/HCC) HLA B27 Typing Assessment/Plan 1. Polyarthralgia (Primary) Symptoms of polyarthralgia for a very longstanding time for more than 2 decades, morning stiffness for more than 1 hour. Patient reports using steroid Dosepak for almost 4-6 times in last 12 months for joint swelling. Family history of lupus in sister. Significantly limited range of motion in both shoulders, patient can barely move her shoulders without pain. Both bases of the thumbs are squared with osteoarthritis on exam in right base of the thumb dislocates very easily with slight movement. History of multiple tendon ruptures. Although there is tenderness and mild swelling noted on clinical exam, but this could be due to recent steroid use that she does not have obvious or overt swelling. Her history is more suggestive of some collagen disorder given frequent tendon ruptures, she reports similar presentation in her sister. We will obtain following labs for further evaluation. If labs are negative then we should consider checking for genetic issues. - Rheumatoid Factor, Plasma; Future - Cyclic Citrul Peptide Antibody IgG; Future - ANTI NUCLEAR AB; Future - HLA B27 Typing; Future - XR Hand and Wrist Bilateral 2 Views; Future - CBC and differential; Future - Comprehensive metabolic panel; Future - Hepatitis B Surface Antigen; Future - Hepatitis C Antibody; Future - Quantiferon TB Gold Plus; Future - XR Foot Left 3+ Views; Future - XR Foot Right 3+ Views; Future - XR Knee Right 1 or 2 Views; Future - XR Knee Left 1 or 2 Views; Future - XR Shoulder Right 2+ Views; Future - XR Shoulder Left 2+ Views; Future - Sedimentation Rate, Automated; Future - C-reactive protein; Future - ANCA Vasculitis profile; Future - SSB (La) (DIDI) Antibody, IgG; Future - Double-Stranded DNA (dsDNA) Antibody, IgG by IFA; Future - C3 Complement; Future - C4 Complement; Future - SSA 52 and 60 (Ro) (DIDI) Antibodies, IgG; Future - Mukherjee (DIDI) Antibody, IgG; Future - SSB (La) (DIDI) Antibody, IgG; Future 2. ??Ankylosing spondylitis of multiple sites in spine (CMS/HCC) Frequent tendon ruptures and tendinitis. We will also check for HLA B27. - HLA B27 Typing; Future Counseling: diagnosis, lab results, treatment options, follow up plan, return instructions, and discussion of mental health issues Note to patient: The 21st Century Cures Act makes medical notes like these available to patients inthe interest of transparency. However, be advised this is a medical document. It is intended as peer to peer communication. It is written in medical language and may contain abbreviations or verbiagethat are unfamiliar. It may appear blunt or direct. Medical documents are intended to carry relevant information, facts as evident, and the clinical opinion of the medical professional. The patient was counseled about diagnostic results, instruction for management, risk factors reduction, prognosis, compliance with visits and treatment, risks and benefits of treatments options. Prior notes (by external physicians) and results were reviewed by me with independent interpretation of labs and imaging. My note will be sent to PCP and other consulting physicians. Information regarding activities, treatments, and follow-up recommendations were provided to the patient/family member(s) present today who have shown recognition and demonstration of understanding of this information. Thank you for the consult and allowing us to participate in the care of this patient. Melisa Jeffers MD Lead Clinical Research Coordinator Division of Rheumatology Department of Internal Medicine [facility] [1] Allergies Allergen Reactions Lyrica [Pregabalin] Vomiting Tape/Bandaid Adhesive Rash Skin comes off Duloxetine Hcl Unknown - Patient states they do not know rxn details Gabapentin Unknown - Patient states they do not know rxn details Paroxetine Unknown - Patient states they do not know rxn details [2] Past Medical History: Diagnosis Date Atherosclerotic heart disease of viejas coronary artery without angina pectoris Coronary heart disease Dorsalgia, unspecified Chronic back pain Hemangioma unspecified site Hemangioma Personal history of diseases of the blood and blood-forming organs and certain disorders involving the immune mechanism History of autoimmune disorder Personal history of other diseases of the circulatory system History of cardiomegaly Personal history of other infectious and parasitic diseases History of viral infection Personal history of other mental and behavioral disorders History of depression Personal history of other specified conditions History of fatigue Personal history of transient ischemic attack (TIA), and cerebral infarction without residual deficits History of transient cerebral ischemia Right lower quadrant pain Abdominal discomfort, bilateral lower quadrant Vitamin deficiency, unspecified Vitamin deficiency [3] Past Surgical History: Procedure Laterality Date CERVIX SURGERY N/A Cervical Surgery (Breaster) from [facility] SECTION, LOW TRANSVERSE N/A Section from [email or web address] HYSTERECTOMY N/A hysterectomy from [email or web address] [4] Family History Problem Relation Name Age of Onset Colon cancer Other Conversions - Other Mother Rheumatoid arteritis Conversions - Other Sister cutaneous lupus erythematosus Diabetes Father Hyperlipidemia Father Hypertension Mother Hypertension Father Kidney Stones Father Uterine cancer Mother Heart attack Father Sleep apnea Father [5] Current Outpatient Medications on File Prior to Visit Medication Sig Dispense Refill albuterol 108 (90 Base) MCG/ACT inhaler Inhale 2 puffs every 6 hours as needed. amphetamine-dextroamphetamine (Adderall) 20 MG tablet Take 1 tablet by mouth 3 times a day. aspirin 81 MG EC tablet Take 1 tablet by mouth daily. bisoprolol (Zebeta) 5 MG tablet Cholecalciferol (D3 PO) Take 13,000 Int'l Units/L by mouth. clonazePAM (KlonoPIN) 2 MG tablet doxycycline (Vibramycin) 100 MG capsule escitalopram (Lexapro) 20 MG tablet Take 1 tablet by mouth daily. fluticasone (Flonase) 50 MCG/ACT nasal spray folic acid (Folvite) 1 MG tablet Take 1 tablet by mouth daily. furosemide (Lasix) 80 MG tablet HYDROcodone-acetaminophen ([place]) 10-325 MG tablet LORATADINE PO LORATADINE D 10 MG AT BEDTIME losartan (Cozaar) 25 MG tablet Take 1 tablet by mouth daily. methylPREDNISolone (Medrol) 4 MG tablet mupirocin (Bactroban) 2 % ointment NexIUM [address] capsule TAKE 1 CAPSULE TWICE DAILY 30 MINUTES PRIOR TO BREAKFAST AND DINNER. Restasis 0.05 % ophthalmic emulsion rosuvastatin (Crestor) 10 MG tablet Savella 100 MG tablet spironolactone (Aldactone) 50 MG tablet Take 1 tablet by mouth 1 time each day. triamcinolone (Kenalog) 0.1 % cream No current facility-administered medications on file prior to visit. documented in this encounter Plan of Treatment Upcoming Encounters Date Type Department Care Team (Late st Contact Info) Description 11/09/2024 9:00 AM EDT Office Visit [facility] Medicine Specialties [address] [place] [address] Melisa Jeffers MD [address] [place] [address] documented as of this encounter Results * XR Shoulder Left 2+ Views (10/12/2024 11:48 AM EDT) Anatomical Region Laterality Modality Upper Extremities, Shoulder Left Digi se Radiography Impressions 10/12/2024 12:14 PM EDT 1. Degenerative changes of the bilateral hand with dislocation of the right first carpometacarpal joint and subluxation of the left little finger PIP joint. 2. Chronic sequelae of bilateral rotator cuff tear with marked remodeling of the bilateral acromion and bilateral moderate glenohumeral osteoarthritis. 3. Lateral subluxation of the left second toe DIP joint. 4. Small bilateral posterior calcaneal spurs. 5. Normal evaluation of the knees. 6. No findings of inflammatory arthropathy. CRITICAL RESULT: No. COMMUNICATION: Per this written report. Drafted by Alexander Mixon MD on 10/12/2024 12:02 PM Final report signed by Alexander Mixon MD on 10/12/2024 12:14 PM Narrative 10/12/2024 12:14 PM EDT CLINICAL INDICATION: polyarthralgia TECHNIQUE: XR HAND WRIST BILATERAL 2 VIEWS, XR FOOT LEFT 3+ VIEWS, XR FOOT RIGHT 3+ VIEWS, XR KNEE RIGHT 1 OR 2 VIEWS, XR KNEE LEFT 1 OR 2 VIEWS, XR SHOULDER RIGHT 2+ VIEWS, XR SHOULDER LEFT 2+ VIEWS COMPARISON: December 2017. FINDINGS: 2 views of the hands show degenerative changes of bilateral interphalangeal joints. Ulnar subluxation of the right little finger PIP joint. Joint space narrowing in the bilateral second and third metacarpal phalangeal joint without erosive changes. Severe osteoarthritis of the right first carpometacarpal joint with radial dislocation. 3 views of the right shoulder show superior subluxation of the glenohumeral joint with joint space narrowing and humeral acromial narrowing. Defect in the anterior acromion best appreciated on the axial view. Adjacent lung and chest wall are normal. 3 views of the left shoulder show superior subluxation of the glenohumeral joint with marked narrowing of the humeral acromial space and extensive remodeling of the acromion. No fracture or osteonecrosis. Adjacent lung and chest wall are normal. 2 views of the right knee show normal joint space and alignment. No fracture or osteonecrosis. No effusion. 2 views of the left knee show normal knee joint space and alignment. No fracture or osteonecrosis. No effusion. 3 views of the left foot show lateral subluxation of the second toe DIP joint. Joint space and alignment are otherwise normal. No fracture or erosive changes. Degenerative posterior plantar calcaneal spur. No soft tissue swelling. 3 views of the right foot show normal joint space and alignment. No fracture or erosive changes. Incidental note of accessory navicular. Small posterior calcaneal spur. No inflammatory bone formation. No soft tissue swelling. Procedure Note Alexander Mixon MD - 10/12/2024 CLINICAL INDICATION: polyarthralgia TECHNIQUE: XR HAND WRIST BILATERAL 2 VIEWS, XR FOOT LEFT 3+ VIEWS, XR FOOT RIGHT 3+VIEWS, XR KNEE RIGHT 1 OR 2 VIEWS, XR KNEE LEFT 1 OR 2 VIEWS, XR SHOULDERRIGHT 2+ VIEWS, XR SHOULDER LEFT 2+ VIEWS COMPARISON: December 2017. FINDINGS: 2 views of the hands show degenerative changes of bilateralinterphalangeal joints. Ulnar subluxation of the right little finger PIPjoint. Joint space narrowing in the bilateral second and third metacarpalphalangeal joint without erosive changes. 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 3 views of the right shoulder show superior subluxation of theglenohumeral joint with joint space narrowing and humeral acromialnarrowing. Defect in the anterior acromion best appreciated on the axialview. Adjacent lung and chest wall are normal. 3 views of the left shoulder show superior subluxation of the glenohumeraljoint with marked narrowing of the humeral acromial space and extensiveremodeling of the acromion. No fracture or osteonecrosis. Adjacent lungand chest wall are normal. 2 views of the right knee show normal joint space and alignment. Nofracture or osteonecrosis. No effusion. 2 views of the left knee show normal knee joint space and alignment. Nofracture or osteonecrosis. No effusion. 3 views of the left foot show lateral subluxation of the second toe DIPjoint. Joint space and alignment are otherwise normal. No fracture orerosive changes. Degenerative posterior plantar calcaneal spur. No softtissue swelling. 3 views of the right foot show normal joint space and alignment. Nofracture or erosive changes. Incidental note of accessory navicular. Smallposterior calcaneal spur. No inflammatory bone formation. No soft tissueswelling. IMPRESSION: 1.Degenerative changes of the bilateral hand with dislocation of theright first carpometacarpal joint and subluxation of the left littlefinger PIP joint. 2.Chronic sequelae of bilateral rotator cuff tear with marked remodelingof the bilateral acromion and bilateral moderate glenohumeralosteoarthritis. 3.Lateral subluxation of the left second toe DIP joint. 4.Small bilateral posterior calcaneal spurs. 5.Normal evaluation of the knees. 6.No findings of inflammatory arthropathy. CRITICAL RESULT: No. COMMUNICATION: Per this written report. Drafted by Alexander Mixon MD on 10/12/2024 12:02 PM Final report signed by Alexander Mixon MD on 10/12/2024 12:14 PM Melisa Jeffers MD IMG XR PROCEDURES Final Resul t * XR Shoulder Right 2+ Views (10/12/2024 11:48 AM EDT) Anatomical Region Laterality Modality Upper Extremities, Shoulder Right Digi se Radiography Impressions 10/12/2024 12:14 PM EDT 1. Degenerative changes of the bilateral hand with dislocation of the right first carpometacarpal joint and subluxation of the left little finger PIP joint. 2. Chronic sequelae of bilateral rotator cuff tear with marked remodeling of the bilateral acromion and bilateral moderate glenohumeral osteoarthritis. 3. Lateral subluxation of the left second toe DIP joint. 4. Small bilateral posterior calcaneal spurs. 5. Normal evaluation of the knees. 6. No findings of inflammatory arthropathy. CRITICAL RESULT: No. COMMUNICATION: Per this written report. Drafted by Alexander Mixon MD on 10/12/2024 12:02 PM Final report signed by Alexander Mixon MD on 10/12/2024 12:14 PM Narrative 10/12/2024 12:14 PM EDT CLINICAL INDICATION: polyarthralgia TECHNIQUE: XR HAND WRIST BILATERAL 2 VIEWS, XR FOOT LEFT 3+ VIEWS, XR FOOT RIGHT 3+ VIEWS, XR KNEE RIGHT 1 OR 2 VIEWS, XR KNEE LEFT 1 OR 2 VIEWS, XR SHOULDER RIGHT 2+ VIEWS, XR SHOULDER LEFT 2+ VIEWS COMPARISON: December 2017. FINDINGS: 2 views of the hands show degenerative changes of bilateral interphalangeal joints. Ulnar subluxation of the right little finger PIP joint. Joint space narrowing in the bilateral second and third metacarpal phalangeal joint without erosive changes. Severe osteoarthritis of the right first carpometacarpal joint with radial dislocation. 3 views of the right shoulder show superior subluxation of the glenohumeral joint with joint space narrowing and humeral acromial narrowing. Defect in the anterior acromion best appreciated on the axial view. Adjacent lung and chest wall are normal. 3 views of the left shoulder show superior subluxation of the glenohumeral joint with marked narrowing of the humeral acromial space and extensive remodeling of the acromion. No fracture or osteonecrosis. Adjacent lung and chest wall are normal. 2 views of the right knee show normal joint space and alignment. No fracture or osteonecrosis. No effusion. 2 views of the left knee show normal knee joint space and alignment. No fracture or osteonecrosis. No effusion. 3 views of the left foot show lateral subluxation of the second toe DIP joint. Joint space and alignment are otherwise normal. No fracture or erosive changes. Degenerative posterior plantar calcaneal spur. No soft tissue swelling. 3 views of the right foot show normal joint space and alignment. No fracture or erosive changes. Incidental note of accessory navicular. Small posterior calcaneal spur. No inflammatory bone formation. No soft tissue swelling. Procedure Note Alexander Mixon MD - 10/12/2024 CLINICAL INDICATION: polyarthralgia TECHNIQUE: XR HAND WRIST BILATERAL 2 VIEWS, XR FOOT LEFT 3+ VIEWS, XR FOOT RIGHT 3+VIEWS, XR KNEE RIGHT 1 OR 2 VIEWS, XR KNEE LEFT 1 OR 2 VIEWS, XR SHOULDERRIGHT 2+ VIEWS, XR SHOULDER LEFT 2+ VIEWS COMPARISON: December 2017. FINDINGS: 2 views of the hands show degenerative changes of bilateralinterphalangeal joints. Ulnar subluxation of the right little finger PIPjoint. Joint space narrowing in the bilateral second and third metacarpalphalangeal joint without erosive changes. 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 3 views of the right shoulder show superior subluxation of theglenohumeral joint with joint space narrowing and humeral acromialnarrowing. Defect in the anterior acromion best appreciated on the axialview. Adjacent lung and chest wall are normal. 3 views of the left shoulder show superior subluxation of the glenohumeraljoint with marked narrowing of the humeral acromial space and extensiveremodeling of the acromion. No fracture or osteonecrosis. Adjacent lungand chest wall are normal. 2 views of the right knee show normal joint space and alignment. Nofracture or osteonecrosis. No effusion. 2 views of the left knee show normal knee joint space and alignment. Nofracture or osteonecrosis. No effusion. 3 views of the left foot show lateral subluxation of the second toe DIPjoint. Joint space and alignment are otherwise normal. No fracture orerosive changes. Degenerative posterior plantar calcaneal spur. No softtissue swelling. 3 views of the right foot show normal joint space and alignment. Nofracture or erosive changes. Incidental note of accessory navicular. Smallposterior calcaneal spur. No inflammatory bone formation. No soft tissueswelling. IMPRESSION: 1.Degenerative changes of the bilateral hand with dislocation of theright first carpometacarpal joint and subluxation of the left littlefinger PIP joint. 2.Chronic sequelae of bilateral rotator cuff tear with marked remodelingof the bilateral acromion and bilateral moderate glenohumeralosteoarthritis. 3.Lateral subluxation of the left second toe DIP joint. 4.Small bilateral posterior calcaneal spurs. 5.Normal evaluation of the knees. 6.No findings of inflammatory arthropathy. CRITICAL RESULT: No. COMMUNICATION: Per this written report. Drafted by Alexander Mixon MD on 10/12/2024 12:02 PM Final report signed by Alexander Mixon MD on 10/12/2024 12:14 PM Melisa Jeffers MD IMG XR PROCEDURES Final Resul t * XR Knee Left 1 or 2 Views (10/12/2024 11:48 AM EDT) Anatomical Region Laterality Modality Lower Extremities, Knee Left Digital Radiography Impressions 10/12/2024 12:14 PM EDT 1. Degenerative changes of the bilateral hand with dislocation of the right first carpometacarpal joint and subluxation of the left little finger PIP joint. 2. Chronic sequelae of bilateral rotator cuff tear with marked remodeling of the bilateral acromion and bilateral moderate glenohumeral osteoarthritis. 3. Lateral subluxation of the left second toe DIP joint. 4. Small bilateral posterior calcaneal spurs. 5. Normal evaluation of the knees. 6. No findings of inflammatory arthropathy. CRITICAL RESULT: No. COMMUNICATION: Per this written report. Drafted by Alexander Mixon MD on 10/12/2024 12:02 PM Final report signed by Alexander Mixon MD on 10/12/2024 12:14 PM Narrative 10/12/2024 12:14 PM EDT CLINICAL INDICATION: polyarthralgia TECHNIQUE: XR HAND WRIST BILATERAL 2 VIEWS, XR FOOT LEFT 3+ VIEWS, XR FOOT RIGHT 3+ VIEWS, XR KNEE RIGHT 1 OR 2 VIEWS, XR KNEE LEFT 1 OR 2 VIEWS, XR SHOULDER RIGHT 2+ VIEWS, XR SHOULDER LEFT 2+ VIEWS COMPARISON: December 2017. FINDINGS: 2 views of the hands show degenerative changes of bilateral interphalangeal joints. Ulnar subluxation of the right little finger PIP joint. Joint space narrowing in the bilateral second and third metacarpal phalangeal joint without erosive changes. Severe osteoarthritis of the right first carpometacarpal joint with radial dislocation. 3 views of the right shoulder show superior subluxation of the glenohumeral joint with joint space narrowing and humeral acromial narrowing. Defect in the anterior acromion best appreciated on the axial view. Adjacent lung and chest wall are normal. 3 views of the left shoulder show superior subluxation of the glenohumeral joint with marked narrowing of the humeral acromial space and extensive remodeling of the acromion. No fracture or osteonecrosis. Adjacent lung and chest wall are normal. 2 views of the right knee show normal joint space and alignment. No fracture or osteonecrosis. No effusion. 2 views of the left knee show normal knee joint space and alignment. No fracture or osteonecrosis. No effusion. 3 views of the left foot show lateral subluxation of the second toe DIP joint. Joint space and alignment are otherwise normal. No fracture or erosive changes. Degenerative posterior plantar calcaneal spur. No soft tissue swelling. 3 views of the right foot show normal joint space and alignment. No fracture or erosive changes. Incidental note of accessory navicular. Small posterior calcaneal spur. No inflammatory bone formation. No soft tissue swelling. Procedure Note Alexander Mixon MD - 10/12/2024 CLINICAL INDICATION: polyarthralgia TECHNIQUE: XR HAND WRIST BILATERAL 2 VIEWS, XR FOOT LEFT 3+ VIEWS, XR FOOT RIGHT 3+VIEWS, XR KNEE RIGHT 1 OR 2 VIEWS, XR KNEE LEFT 1 OR 2 VIEWS, XR SHOULDERRIGHT 2+ VIEWS, XR SHOULDER LEFT 2+ VIEWS COMPARISON: December 2017. FINDINGS: 2 views of the hands show degenerative changes of bilateralinterphalangeal joints. Ulnar subluxation of the right little finger PIPjoint. Joint space narrowing in the bilateral second and third metacarpalphalangeal joint without erosive changes. 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 3 views of the right shoulder show superior subluxation of theglenohumeral joint with joint space narrowing and humeral acromialnarrowing. Defect in the anterior acromion best appreciated on the axialview. Adjacent lung and chest wall are normal. 3 views of the left shoulder show superior subluxation of the glenohumeraljoint with marked narrowing of the humeral acromial space and extensiveremodeling of the acromion. No fracture or osteonecrosis. Adjacent lungand chest wall are normal. 2 views of the right knee show normal joint space and alignment. Nofracture or osteonecrosis. No effusion. 2 views of the left knee show normal knee joint space and alignment. Nofracture or osteonecrosis. No effusion. 3 views of the left foot show lateral subluxation of the second toe DIPjoint. Joint space and alignment are otherwise normal. No fracture orerosive changes. Degenerative posterior plantar calcaneal spur. No softtissue swelling. 3 views of the right foot show normal joint space and alignment. Nofracture or erosive changes. Incidental note of accessory navicular. Smallposterior calcaneal spur. No inflammatory bone formation. No soft tissueswelling. IMPRESSION: 1.Degenerative changes of the bilateral hand with dislocation of theright first carpometacarpal joint and subluxation of the left littlefinger PIP joint. 2.Chronic sequelae of bilateral rotator cuff tear with marked remodelingof the bilateral acromion and bilateral moderate glenohumeralosteoarthritis. 3.Lateral subluxation of the left second toe DIP joint. 4.Small bilateral posterior calcaneal spurs. 5.Normal evaluation of the knees. 6.No findings of inflammatory arthropathy. CRITICAL RESULT: No. COMMUNICATION: Per this written report. Drafted by Alexander Mixon MD on 10/12/2024 12:02 PM Final report signed by Alexander Mixon MD on 10/12/2024 12:14 PM us Melisa Jeffers MD IMG XR PROCEDURES Final Resul t * XR Knee Right 1 or 2 Views (10/12/2024 11:48 AM EDT) Anatomical Region Laterality Modality Lower Extremities, Knee Right Digital Radiography Impressions 10/12/2024 12:14 PM EDT 1. Degenerative changes of the bilateral hand with dislocation of the right first carpometacarpal joint and subluxation of the left little finger PIP joint. 2. Chronic sequelae of bilateral rotator cuff tear with marked remodeling of the bilateral acromion and bilateral moderate glenohumeral osteoarthritis. 3. Lateral subluxation of the left second toe DIP joint. 4. Small bilateral posterior calcaneal spurs. 5. Normal evaluation of the knees. 6. No findings of inflammatory arthropathy. CRITICAL RESULT: No. COMMUNICATION: Per this written report. Drafted by Alexander Mixon MD on 10/12/2024 12:02 PM Final report signed by Alexander Mixon MD on 10/12/2024 12:14 PM Narrative 10/12/2024 12:14 PM EDT CLINICAL INDICATION: polyarthralgia TECHNIQUE: XR HAND WRIST BILATERAL 2 VIEWS, XR FOOT LEFT 3+ VIEWS, XR FOOT RIGHT 3+ VIEWS, XR KNEE RIGHT 1 OR 2 VIEWS, XR KNEE LEFT 1 OR 2 VIEWS, XR SHOULDER RIGHT 2+ VIEWS, XR SHOULDER LEFT 2+ VIEWS COMPARISON: December 2017. FINDINGS: 2 views of the hands show degenerative changes of bilateral interphalangeal joints. Ulnar subluxation of the right little finger PIP joint. Joint space narrowing in the bilateral second and third metacarpal phalangeal joint without erosive changes. Severe osteoarthritis of the right first carpometacarpal joint with radial dislocation. 3 views of the right shoulder show superior subluxation of the glenohumeral joint with joint space narrowing and humeral acromial narrowing. Defect in the anterior acromion best appreciated on the axial view. Adjacent lung and chest wall are normal. 3 views of the left shoulder show superior subluxation of the glenohumeral joint with marked narrowing of the humeral acromial space and extensive remodeling of the acromion. No fracture or osteonecrosis. Adjacent lung and chest wall are normal. 2 views of the right knee show normal joint space and alignment. No fracture or osteonecrosis. No effusion. 2 views of the left knee show normal knee joint space and alignment. No fracture or osteonecrosis. No effusion. 3 views of the left foot show lateral subluxation of the second toe DIP joint. Joint space and alignment are otherwise normal. No fracture or erosive changes. Degenerative posterior plantar calcaneal spur. No soft tissue swelling. 3 views of the right foot show normal joint space and alignment. No fracture or erosive changes. Incidental note of accessory navicular. Small posterior calcaneal spur. No inflammatory bone formation. No soft tissue swelling. Procedure Note Alexander Mixon MD - 10/12/2024 CLINICAL INDICATION: polyarthralgia TECHNIQUE: XR HAND WRIST BILATERAL 2 VIEWS, XR FOOT LEFT 3+ VIEWS, XR FOOT RIGHT 3+VIEWS, XR KNEE RIGHT 1 OR 2 VIEWS, XR KNEE LEFT 1 OR 2 VIEWS, XR SHOULDERRIGHT 2+ VIEWS, XR SHOULDER LEFT 2+ VIEWS COMPARISON: December 2017. FINDINGS: 2 views of the hands show degenerative changes of bilateralinterphalangeal joints. Ulnar subluxation of the right little finger PIPjoint. Joint space narrowing in the bilateral second and third metacarpalphalangeal joint without erosive changes. 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 3 views of the right shoulder show superior subluxation of theglenohumeral joint with joint space narrowing and humeral acromialnarrowing. Defect in the anterior acromion best appreciated on the axialview. Adjacent lung and chest wall are normal. 3 views of the left shoulder show superior subluxation of the glenohumeraljoint with marked narrowing of the humeral acromial space and extensiveremodeling of the acromion. No fracture or osteonecrosis. Adjacent lungand chest wall are normal. 2 views of the right knee show normal joint space and alignment. Nofracture or osteonecrosis. No effusion. 2 views of the left knee show normal knee joint space and alignment. Nofracture or osteonecrosis. No effusion. 3 views of the left foot show lateral subluxation of the second toe DIPjoint. Joint space and alignment are otherwise normal. No fracture orerosive changes. Degenerative posterior plantar calcaneal spur. No softtissue swelling. 3 views of the right foot show normal joint space and alignment. Nofracture or erosive changes. Incidental note of accessory navicular. Smallposterior calcaneal spur. No inflammatory bone formation. No soft tissueswelling. IMPRESSION: 1.Degenerative changes of the bilateral hand with dislocation of theright first carpometacarpal joint and subluxation of the left littlefinger PIP joint. 2.Chronic sequelae of bilateral rotator cuff tear with marked remodelingof the bilateral acromion and bilateral moderate glenohumeralosteoarthritis. 3.Lateral subluxation of the left second toe DIP joint. 4.Small bilateral posterior calcaneal spurs. 5.Normal evaluation of the knees. 6.No findings of inflammatory arthropathy. CRITICAL RESULT: No. COMMUNICATION: Per this written report. Drafted by Alexander Mixon MD on 10/12/2024 12:02 PM Final report signed by Alexander Mixon MD on 10/12/2024 12:14 PM Melisa Jeffers MD IMG XR PROCEDURES Final Resul t * XR Foot Right 3+ Views (10/12/2024 11:48 AM EDT) Anatomical Region Laterality Modality Lower Extremities, Foot Right Digital Radiography Impressions 10/12/2024 12:14 PM EDT 1. Degenerative changes of the bilateral hand with dislocation of the right first carpometacarpal joint and subluxation of the left little finger PIP joint. 2. Chronic sequelae of bilateral rotator cuff tear with marked remodeling of the bilateral acromion and bilateral moderate glenohumeral osteoarthritis. 3. Lateral subluxation of the left second toe DIP joint. 4. Small bilateral posterior calcaneal spurs. 5. Normal evaluation of the knees. 6. No findings of inflammatory arthropathy. CRITICAL RESULT: No. COMMUNICATION: Per this written report. Drafted by Alexander Mixon MD on 10/12/2024 12:02 PM Final report signed by Alexander Mixon MD on 10/12/2024 12:14 PM Narrative 10/12/2024 12:14 PM EDT CLINICAL INDICATION: polyarthralgia TECHNIQUE: XR HAND WRIST BILATERAL 2 VIEWS, XR FOOT LEFT 3+ VIEWS, XR FOOT RIGHT 3+ VIEWS, XR KNEE RIGHT 1 OR 2 VIEWS, XR KNEE LEFT 1 OR 2 VIEWS, XR SHOULDER RIGHT 2+ VIEWS, XR SHOULDER LEFT 2+ VIEWS COMPARISON: December 2017. FINDINGS: 2 views of the hands show degenerative changes of bilateral interphalangeal joints. Ulnar subluxation of the right little finger PIP joint. Joint space narrowing in the bilateral second and third metacarpal phalangeal joint without erosive changes. Severe osteoarthritis of the right first carpometacarpal joint with radial dislocation. 3 views of the right shoulder show superior subluxation of the glenohumeral joint with joint space narrowing and humeral acromial narrowing. Defect in the anterior acromion best appreciated on the axial view. Adjacent lung and chest wall are normal. 3 views of the left shoulder show superior subluxation of the glenohumeral joint with marked narrowing of the humeral acromial space and extensive remodeling of the acromion. No fracture or osteonecrosis. Adjacent lung and chest wall are normal. 2 views of the right knee show normal joint space and alignment. No fracture or osteonecrosis. No effusion. 2 views of the left knee show normal knee joint space and alignment. No fracture or osteonecrosis. No effusion. 3 views of the left foot show lateral subluxation of the second toe DIP joint. Joint space and alignment are otherwise normal. No fracture or erosive changes. Degenerative posterior plantar calcaneal spur. No soft tissue swelling. 3 views of the right foot show normal joint space and alignment. No fracture or erosive changes. Incidental note of accessory navicular. Small posterior calcaneal spur. No inflammatory bone formation. No soft tissue swelling. Procedure Note Alexander Mixon MD - 10/12/2024 CLINICAL INDICATION: polyarthralgia TECHNIQUE: XR HAND WRIST BILATERAL 2 VIEWS, XR FOOT LEFT 3+ VIEWS, XR FOOT RIGHT 3+VIEWS, XR KNEE RIGHT 1 OR 2 VIEWS, XR KNEE LEFT 1 OR 2 VIEWS, XR SHOULDERRIGHT 2+ VIEWS, XR SHOULDER LEFT 2+ VIEWS COMPARISON: December 2017. FINDINGS: 2 views of the hands show degenerative changes of bilateralinterphalangeal joints. Ulnar subluxation of the right little finger PIPjoint. Joint space narrowing in the bilateral second and third metacarpalphalangeal joint without erosive changes. 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 3 views of the right shoulder show superior subluxation of theglenohumeral joint with joint space narrowing and humeral acromialnarrowing. Defect in the anterior acromion best appreciated on the axialview. Adjacent lung and chest wall are normal. 3 views of the left shoulder show superior subluxation of the glenohumeraljoint with marked narrowing of the humeral acromial space and extensiveremodeling of the acromion. No fracture or osteonecrosis. Adjacent lungand chest wall are normal. 2 views of the right knee show normal joint space and alignment. Nofracture or osteonecrosis. No effusion. 2 views of the left knee show normal knee joint space and alignment. Nofracture or osteonecrosis. No effusion. 3 views of the left foot show lateral subluxation of the second toe DIPjoint. Joint space and alignment are otherwise normal. No fracture orerosive changes. Degenerative posterior plantar calcaneal spur. No softtissue swelling. 3 views of the right foot show normal joint space and alignment. Nofracture or erosive changes. Incidental note of accessory navicular. Smallposterior calcaneal spur. No inflammatory bone formation. No soft tissueswelling. IMPRESSION: 1.Degenerative changes of the bilateral hand with dislocation of theright first carpometacarpal joint and subluxation of the left littlefinger PIP joint. 2.Chronic sequelae of bilateral rotator cuff tear with marked remodelingof the bilateral acromion and bilateral moderate glenohumeralosteoarthritis. 3.Lateral subluxation of the left second toe DIP joint. 4.Small bilateral posterior calcaneal spurs. 5.Normal evaluation of the knees. 6.No findings of inflammatory arthropathy. CRITICAL RESULT: No. COMMUNICATION: Per this written report. Drafted by Alexander Mixon MD on 10/12/2024 12:02 PM Final report signed by Alexander Mixon MD on 10/12/2024 12:14 PM us Melisa Jeffers MD IMG XR PROCEDURES Final Resul t * XR Foot Left 3+ Views (10/12/2024 11:48 AM EDT) Anatomical Region Laterality Modality Lower Extremities, Foot Left Digital Radiography Impressions 10/12/2024 12:14 PM EDT 1. Degenerative changes of the bilateral hand with dislocation of the right first carpometacarpal joint and subluxation of the left little finger PIP joint. 2. Chronic sequelae of bilateral rotator cuff tear with marked remodeling of the bilateral acromion and bilateral moderate glenohumeral osteoarthritis. 3. Lateral subluxation of the left second toe DIP joint. 4. Small bilateral posterior calcaneal spurs. 5. Normal evaluation of the knees. 6. No findings of inflammatory arthropathy. CRITICAL RESULT: No. COMMUNICATION: Per this written report. Drafted by Alexander Mixon MD on 10/12/2024 12:02 PM Final report signed by Alexander Mixon MD on 10/12/2024 12:14 PM Narrative 10/12/2024 12:14 PM EDT CLINICAL INDICATION: polyarthralgia TECHNIQUE: XR HAND WRIST BILATERAL 2 VIEWS, XR FOOT LEFT 3+ VIEWS, XR FOOT RIGHT 3+ VIEWS, XR KNEE RIGHT 1 OR 2 VIEWS, XR KNEE LEFT 1 OR 2 VIEWS, XR SHOULDER RIGHT 2+ VIEWS, XR SHOULDER LEFT 2+ VIEWS COMPARISON: December 2017. FINDINGS: 2 views of the hands show degenerative changes of bilateral interphalangeal joints. Ulnar subluxation of the right little finger PIP joint. Joint space narrowing in the bilateral second and third metacarpal phalangeal joint without erosive changes. Severe osteoarthritis of the right first carpometacarpal joint with radial dislocation. 3 views of the right shoulder show superior subluxation of the glenohumeral joint with joint space narrowing and humeral acromial narrowing. Defect in the anterior acromion best appreciated on the axial view. Adjacent lung and chest wall are normal. 3 views of the left shoulder show superior subluxation of the glenohumeral joint with marked narrowing of the humeral acromial space and extensive remodeling of the acromion. No fracture or osteonecrosis. Adjacent lung and chest wall are normal. 2 views of the right knee show normal joint space and alignment. No fracture or osteonecrosis. No effusion. 2 views of the left knee show normal knee joint space and alignment. No fracture or osteonecrosis. No effusion. 3 views of the left foot show lateral subluxation of the second toe DIP joint. Joint space and alignment are otherwise normal. No fracture or erosive changes. Degenerative posterior plantar calcaneal spur. No soft tissue swelling. 3 views of the right foot show normal joint space and alignment. No fracture or erosive changes. Incidental note of accessory navicular. Small posterior calcaneal spur. No inflammatory bone formation. No soft tissue swelling. Procedure Note Alexander Mixon MD - 10/12/2024 CLINICAL INDICATION: polyarthralgia TECHNIQUE: XR HAND WRIST BILATERAL 2 VIEWS, XR FOOT LEFT 3+ VIEWS, XR FOOT RIGHT 3+VIEWS, XR KNEE RIGHT 1 OR 2 VIEWS, XR KNEE LEFT 1 OR 2 VIEWS, XR SHOULDERRIGHT 2+ VIEWS, XR SHOULDER LEFT 2+ VIEWS COMPARISON: December 2017. FINDINGS: 2 views of the hands show degenerative changes of bilateralinterphalangeal joints. Ulnar subluxation of the right little finger PIPjoint. Joint space narrowing in the bilateral second and third metacarpalphalangeal joint without erosive changes. 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 3 views of the right shoulder show superior subluxation of theglenohumeral joint with joint space narrowing and humeral acromialnarrowing. Defect in the anterior acromion best appreciated on the axialview. Adjacent lung and chest wall are normal. 3 views of the left shoulder show superior subluxation of the glenohumeraljoint with marked narrowing of the humeral acromial space and extensiveremodeling of the acromion. No fracture or osteonecrosis. Adjacent lungand chest wall are normal. 2 views of the right knee show normal joint space and alignment. Nofracture or osteonecrosis. No effusion. 2 views of the left knee show normal knee joint space and alignment. Nofracture or osteonecrosis. No effusion. 3 views of the left foot show lateral subluxation of the second toe DIPjoint. Joint space and alignment are otherwise normal. No fracture orerosive changes. Degenerative posterior plantar calcaneal spur. No softtissue swelling. 3 views of the right foot show normal joint space and alignment. Nofracture or erosive changes. Incidental note of accessory navicular. Smallposterior calcaneal spur. No inflammatory bone formation. No soft tissueswelling. IMPRESSION: 1.Degenerative changes of the bilateral hand with dislocation of theright first carpometacarpal joint and subluxation of the left littlefinger PIP joint. 2.Chronic sequelae of bilateral rotator cuff tear with marked remodelingof the bilateral acromion and bilateral moderate glenohumeralosteoarthritis. 3.Lateral subluxation of the left second toe DIP joint. 4.Small bilateral posterior calcaneal spurs. 5.Normal evaluation of the knees. 6.No findings of inflammatory arthropathy. CRITICAL RESULT: No. COMMUNICATION: Per this written report. Drafted by Alexander Mixon MD on 10/12/2024 12:02 PM Final report signed by Alexander Mixon MD on 10/12/2024 12:14 PM us Melisa Jeffers MD IMG XR PROCEDURES Final Resul t * XR Hand and Wrist Bilateral 2 Views (10/12/2024 11:48 AM EDT) Anatomical Region Laterality Modality Hand, Wrist Bilateral Digital Radiogra phy Impressions 10/12/2024 12:14 PM EDT 1. Degenerative changes of the bilateral hand with dislocation of the right first carpometacarpal joint and subluxation of the left little finger PIP joint. 2. Chronic sequelae of bilateral rotator cuff tear with marked remodeling of the bilateral acromion and bilateral moderate glenohumeral osteoarthritis. 3. Lateral subluxation of the left second toe DIP joint. 4. Small bilateral posterior calcaneal spurs. 5. Normal evaluation of the knees. 6. No findings of inflammatory arthropathy. CRITICAL RESULT: No. COMMUNICATION: Per this written report. Drafted by Alexander Mixon MD on 10/12/2024 12:02 PM Final report signed by Alexander Mixon MD on 10/12/2024 12:14 PM Narrative 10/12/2024 12:14 PM EDT CLINICAL INDICATION: polyarthralgia TECHNIQUE: XR HAND WRIST BILATERAL 2 VIEWS, XR FOOT LEFT 3+ VIEWS, XR FOOT RIGHT 3+ VIEWS, XR KNEE RIGHT 1 OR 2 VIEWS, XR KNEE LEFT 1 OR 2 VIEWS, XR SHOULDER RIGHT 2+ VIEWS, XR SHOULDER LEFT 2+ VIEWS COMPARISON: December 2017. FINDINGS: 2 views of the hands show degenerative changes of bilateral interphalangeal joints. Ulnar subluxation of the right little finger PIP joint. Joint space narrowing in the bilateral second and third metacarpal phalangeal joint without erosive changes. Severe osteoarthritis of the right first carpometacarpal joint with radial dislocation. 3 views of the right shoulder show superior subluxation of the glenohumeral joint with joint space narrowing and humeral acromial narrowing. Defect in the anterior acromion best appreciated on the axial view. Adjacent lung and chest wall are normal. 3 views of the left shoulder show superior subluxation of the glenohumeral joint with marked narrowing of the humeral acromial space and extensive remodeling of the acromion. No fracture or osteonecrosis. Adjacent lung and chest wall are normal. 2 views of the right knee show normal joint space and alignment. No fracture or osteonecrosis. No effusion. 2 views of the left knee show normal knee joint space and alignment. No fracture or osteonecrosis. No effusion. 3 views of the left foot show lateral subluxation of the second toe DIP joint. Joint space and alignment are otherwise normal. No fracture or erosive changes. Degenerative posterior plantar calcaneal spur. No soft tissue swelling. 3 views of the right foot show normal joint space and alignment. No fracture or erosive changes. Incidental note of accessory navicular. Small posterior calcaneal spur. No inflammatory bone formation. No soft tissue swelling. Procedure Note Alexander Mixon MD - 10/12/2024 CLINICAL INDICATION: polyarthralgia TECHNIQUE: XR HAND WRIST BILATERAL 2 VIEWS, XR FOOT LEFT 3+ VIEWS, XR FOOT RIGHT 3+VIEWS, XR KNEE RIGHT 1 OR 2 VIEWS, XR KNEE LEFT 1 OR 2 VIEWS, XR SHOULDERRIGHT 2+ VIEWS, XR SHOULDER LEFT 2+ VIEWS COMPARISON: December 2017. FINDINGS: 2 views of the hands show degenerative changes of bilateralinterphalangeal joints. Ulnar subluxation of the right little finger PIPjoint. Joint space narrowing in the bilateral second and third metacarpalphalangeal joint without erosive changes. 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 3 views of the right shoulder show superior subluxation of theglenohumeral joint with joint space narrowing and humeral acromialnarrowing. Defect in the anterior acromion best appreciated on the axialview. Adjacent lung and chest wall are normal. 3 views of the left shoulder show superior subluxation of the glenohumeraljoint with marked narrowing of the humeral acromial space and extensiveremodeling of the acromion. No fracture or osteonecrosis. Adjacent lungand chest wall are normal. 2 views of the right knee show normal joint space and alignment. Nofracture or osteonecrosis. No effusion. 2 views of the left knee show normal knee joint space and alignment. Nofracture or osteonecrosis. No effusion. 3 views of the left foot show lateral subluxation of the second toe DIPjoint. Joint space and alignment are otherwise normal. No fracture orerosive changes. Degenerative posterior plantar calcaneal spur. No softtissue swelling. 3 views of the right foot show normal joint space and alignment. Nofracture or erosive changes. Incidental note of accessory navicular. Smallposterior calcaneal spur. No inflammatory bone formation. No soft tissueswelling. IMPRESSION: 1.Degenerative changes of the bilateral hand with dislocation of theright first carpometacarpal joint and subluxation of the left littlefinger PIP joint. 2.Chronic sequelae of bilateral rotator cuff tear with marked remodelingof the bilateral acromion and bilateral moderate glenohumeralosteoarthritis. 3.Lateral subluxation of the left second toe DIP joint. 4.Small bilateral posterior calcaneal spurs. 5.Normal evaluation of the knees. 6.No findings of inflammatory arthropathy. CRITICAL RESULT: No. COMMUNICATION: Per this written report. Drafted by Alexander Mixon MD on 10/12/2024 12:02 PM Final report signed by Alexander Mixon MD on 10/12/2024 12:14 PM us Melisa Jeffers MD IMG XR PROCEDURES Final Resul t * SSB (La) (DIDI) Antibody, IgG (10/12/2024 10:56 AM EDT) SSB (LA) (DIDI) Antibody, IgG 1 0 - 40 AU/mL 10/14/2024 11:49 AM EDT [facility] ([facility]) Serum Venous blood specimen / Unknown 10/12/2024 10:56 AM EDT 10/12/2024 10:59 AM EDT Narrative [facility] ([facility]) - 10/14/2024 11:49 AM EDT INTERPRETIVE INFORMATION: SSB (La) (DIDI) Ab, IgG 29 AU/mL or Less ............. Negative 30 - 40 AU/mL ................ Equivocal 41 AU/mL or Greater .......... Positive SSB (La) antibody is seen in 50-60% of Sjogren syndrome cases and is specific if it is the only DIDI antibody present. 15-25% of patients with systemic lupus erythematosus (SLE) and 5-10% of patients with progressive systemic sclerosis (PSS) also have this antibody. Performed By: [facility] [address] [place] [address] Business Quality Assurance Analyst: Arnoldo Butler MD, PhD CLIA Number: [id number] Melisa Jeffers MD LAB BLOOD ORDERABLES Final Re sult Performing Organization Address City/[facility]/ZIP Co de Phone Number [facility] ([facility]) [address] [place] [address] * Mukherjee (DIDI) Antibody, IgG (10/12/2024 10:56 AM EDT) Pathologist [facility] Mukherjee (DIDI) Antibody, IgG 0 0 - 40 AU/mL 10/14/2024 3:16 PM EDT [facility]) Serum 10/12/2024 10:5 6 AM EDT 10/12/2024 10:59 AM EDT Narrative [facility]) - 10/14/2024 3:16 PM EDT INTERPRETIVE INFORMATION: Mukherjee (DIDI) Antibody, IgG 29 AU/mL or Less ............. Negative 30 - 40 AU/mL ................ Equivocal 41 AU/mL or Greater .......... Positive Mukherjee antibody is highly specific (greater than 90 percent) for systemic lupus erythematosus (SLE) but only occurs in 30-35 percent of SLE cases. The presence of antibodies to Mukherjee has variable associations with SLE clinical manifestations. Performed By: [facility] [address] [place] [address] Business Quality Assurance Analyst: Arnoldo Butler MD, PhD CLIA Number: [id number] Melisa Jeffers MD LAB REF LAB BLOOD AND FLUID O RD Final Result Performing Organization Address [facility]/ZIP Co de Phone Number [facility] ([facility]) [address] [place] [address] * SSA 52 and 60 (Ro) (DIDI) Antibodies, IgG (10/12/2024 10:56 AM EDT) Pathologist [facility] SSA-52 (RO52) (DIDI) Antibody, IgG 0 0 - 40 AU/mL 10/14/2024 3:16 PM EDT [facility] ([facility]) SSA-60 (RO60) (DIDI) Antibody, IgG 1 0 - 40 AU/mL 10/14/2024 3:16 PM EDT [facility] ([facility]) Serum 10/12/2024 10:5 6 AM EDT 10/12/2024 10:59 AM EDT Narrative [facility] ([facility]) - 10/14/2024 3:16 PM EDT INTERPRETIVE INFORMATION: SSA-52 (Ro52) (DIDI) Antibody, IgG 29 AU/mL or Less ............. Negative 30 - 40 AU/mL ................ Equivocal 41 AU/mL or Greater .......... Positive SSA-52 (Ro52) and/or SSA-60 (Ro60) antibodies are associated with a diagnosis of Sjogren syndrome, systemic lupus erythematosus (SLE), and systemic sclerosis. SSA-52 antibody overlaps significantly with the major SSc-related antibodies. SSA-52 (Ro52) antibody occurs frequently in patients with inflammatory myopathies, often in the presence of interstitial lung disease. REFERENCE INTERVAL: SSA-60 (Ro60) (DIDI) Antibody, IgG 29 AU/mL or Less ............. Negative 30 - 40 AU/mL ................ Equivocal 41 AU/mL or Greater .......... Positive Performed By: [facility] [address] [place] [address] Business Quality Assurance Analyst: Arnoldo Butler MD, PhD CLIA Number: [id number] us Melisa Jeffers MD LAB REF LAB BLOOD AND FLUID O RD Final Result [facility] [address] [place] [address] * C4 Complement (10/12/2024 10:56 AM EDT) C4 Complement 25 13 - 36 mg/dL 10/12/2024 12:14 PM EDT [facility] Blood Venous blood specimen / Unknown Venipuncture / Unknown 10/12/2024 10:56 AM EDT 10/12/2024 10:59 AM EDT us Melias Jeffers MD LAB BLOOD ORDERABLES Final Re sult Performing Organization Address [facility]/[place] [address] * C3 Complement (10/12/2024 10:56 AM EDT) C3 Complement 116 84 - 166 mg/dL 10/12/2024 12:14 PM EDT [facility] Blood Venous blood specimen / Unknown Venipuncture / Unknown 10/12/2024 10:56 AM EDT 10/12/2024 10:59 AM EDT us Melisa Jeffers MD LAB BLOOD ORDERABLES Final Re sult Performing Organization Address [facility] [place] [address] * Double-Stranded DNA (dsDNA) Antibody, IgG by IFA (10/12/2024 10:56 AM EDT) Pathologist [facility] Double-Strande d DNA (dsDNA) Ab IgG IFA <1:10 <1:10 10/14/2024 11:43 PM EDT [facility] ([facility]) Blood Venous blood specimen / Unknown Venipuncture / Unknown 10/12/2024 10:56 AM EDT 10/12/2024 10:59 AM EDT Narrative [facility] ([facility]) - 10/14/2024 11:43 PM EDT INTERPRETIVE INFORMATION: Double-Stranded DNA (dsDNA) Antibody, IgG by IFA (using Crithidia luciliae) Positivity for anti-double stranded DNA (anti-dsDNA) IgG antibody is a diagnostic criterion of systemic lupus erythematosus (SLE). The presence of the anti-dsDNA IgG antibody is identified by IFA titer (Crithidia luciliae indirect fluorescent test [JEFRY]). JEFRY is highly specific for SLE with a sensitivity of 50-60 percent. Some patients with early or inactive SLE may be positive for anti-dsDNA IgG by CHA but negative by JEFRY. If the JEFRY result is negative but the patient has a positive CHA and clinical suspicion remains, consider antinuclear antibody (WARREN) testing by IFA. Additional information and recommendations for testing may be found at [email or web address]. Performed By: [facility] [address] [place] [address] Business Quality Assurance Analyst: Arnoldo Butelr MD, PhD CLIA Number: [id number] Melisa Jeffers MD LAB BLOOD ORDERABLES Final Re sult [facility]) [address] [place] [id number] * ANCA Vasculitis profile (10/12/2024 10:56 AM EDT) Myeloperoxidase (MPO) Ab, IgG 0 0 - 19 AU/mL 10/15/2024 2:18 PM EDT [facility] ([facility]) Serine Proteinase 3 (PR3) Ab, IgG 0 0 - 19 AU/mL 10/15/2024 2:18 PM EDT [facility] ([facility]) ANCA IFA Titer <1:20 <1:20 10/15/2024 2:18 PM EDT [facility] ([facility]) ANCA IFA Pattern None Detected None Detected 10/15/2024 2:18 PM EDT [facility] ([facility]) Blood Venous blood specimen / Unknown Venipuncture / Unknown 10/12/2024 10:56 AM EDT 10/12/2024 10:59 AM EDT Narrative [facility] ([facility]) - 10/15/2024 2:18 PM EDT INTERPRETIVE INFORMATION: Myeloperoxidase Abs, IgG 19 AU/mL or Less ......... Negative 20-25 AU/mL .............. Equivocal 26 AU/mL or Greater ...... Positive Approximately 90% of patients with a P-ANCA pattern by IFA have antibodies specific for MPO. INTERPRETIVE INFORMATION: Serine Proteinase 3, IgG 19 AU/mL or Less ........ Negative 20-25 AU/mL ............. Equivocal 26 AU/mL or Greater ..... Positive Approximately 85% of patients with a C-ANCA pattern by IFA have antibodies specific for PR3. INTERPRETIVE INFORMATION: ANCA IFA Pattern Neutrophil Cytoplasmic Antibodies (C-ANCA = granular cytoplasmic staining, P-ANCA = perinuclear staining) are found in the serum of over 90 percent of patients with certain necrotizing systemic vasculitides, and usually in less than 5 percent of patients with collagen vascular disease or arthritis. Performed By: [facility] [address] [place] [address] Business Quality Assurance Analyst: Arnoldo Butler MD, PhD CLIA Number: [id number] Melisa Jeffers MD LAB BLOOD ORDERABLES Final Re sult Performing Organization Address City/[facility]/ZIP Co de Phone Number [facility] ([facility]) [address] [place] [phone] * C-reactive protein (10/12/2024 10:56 AM EDT) [facility] CRP, Plasma <3.0 <=8.0 mg/L 10/12/2024 12:15 PM EDT [facility] Blood Venous blood specimen / Unknown Venipuncture / Unknown 10/12/2024 10:56 AM EDT 10/12/2024 10:59 AM EDT Narrative [facility] - 10/12/2024 12:15 PM EDT This CRP test is appropriate for assessment of infection, systemic inflammation and/or tissue injury. To assess cardiovascular disease risk order high sensitivity CRP (CRPH). Melisa Jeffers MD LAB BLOOD ORDERABLES Final Re sult [facility] [address] [place] [address] * Sedimentation Rate, Automated (10/12/2024 10:56 AM EDT) Sedimentation Rate 11 <20 mm/hr 2024 12:27 PM EDT [facility] Blood Venous blood specimen / Unknown Venipuncture / Unknown 10/12/2024 10:56 AM EDT 10/12/2024 10:59 AM EDT Melisa Jeffers MD LAB BLOOD ORDERABLES Final Re sult Performing Organization Address [facility] Co de Phone Number [facility] [address] [place] [address] * Quantiferon TB Gold Plus (10/12/2024 10:56 AM EDT) Quantiferon TB Gold Plus Result Negative Negative 10/13/2024 5:02 PM EDT [facility] TB Nill Value 0.0414 IU/mL 10/13/2024 5:02 PM EDT [facility] TB Antigen 1 -0.0041 IU/mL 10/13/2024 5:02 PM EDT [facility] TB Antigen 2 0.0044 IU/mL 10/13/2024 5:02 PM EDT [facility] TB Mitogen 9.9586 IU/mL 10/13/2024 5:02 PM EDT [facility] Blood Venous blood specimen / Unknown Venipuncture / Unknown 10/12/2024 10:56 AM EDT 10/12/2024 10:59 AM EDT Narrative [facility] - 10/13/2024 5:02 PM EDT Responses to the Mitogen positive control and occasionally to TB antigen can be above the assay range. For calculation purposes: IFN-gamma values > 10 IU/mL are handled as 10 IU/mL. us Melisa Jeffers MD LAB BLOOD ORDERABLES Final Re sult Performing Organization Address City/[facility] Co de Phone Number [facility] [address] [place] [address] * Hepatitis C Antibody (10/12/2024 10:56 AM EDT) Hepatitis C Antibody Negative Negative 10/12/2024 12:24 PM EDT [facility] Blood Venous blood specimen / Unknown Venipuncture / Unknown 10/12/2024 10:56 AM EDT 10/12/2024 10:59 AM EDT Melisa Jeffers MD LAB BLOOD ORDERABLES Final Re sult Performing Organization Address [facility]/ZIP Co de Phone Number [facility] [address] [place] [address] * Hepatitis B Surface Antigen (10/12/2024 10:56 AM EDT) Pathologist [facility] Hepatitis B Surf Antigen Negative Negative 10/12/2024 12:18 PM EDT [facility] Blood Venous blood specimen / Unknown Venipuncture / Unknown 10/12/2024 10:56 AM EDT 10/12/2024 10:59 AM EDT Melisa Jeffers MD LAB BLOOD ORDERABLES Final Re sult Performing Organization Address City/[facility]/ZIP Co de Phone Number [facility] [address] [place] [address] * (ABNORMAL) Comprehensive metabolic panel (10/12/2024 10:56 AM EDT) Pathologist [facility] Glucose, Plasma 77 74 - 99 mg/dL 10/12/2024 12:15 PM EDT [facility] BUN, Plasma 28(H) 7 - 21 mg/dL 10/12/2024 12:15 PM EDT [facility] Creatinine, Plasma 0.91 0.60 - 1.10 mg/dL 10/12/2024 12:15 PM EDT [facility] BUN/Creatinine Ratio 31 10/12/2024 12:15 PM EDT [facility] Sodium, Plasma 140 136 - 145 mmol/L 10/12/2024 12:15 PM EDT [facility] Potassium, Plasma 4.2 3.6 - 4.9 mmol/L 10/12/2024 12:15 PM EDT [facility] Chloride, Plasma 98 97 - 107 mmol/L 10/12/2024 12:15 PM EDT [facility] CO2, Plasma 29 22 - 29 mmol/L 10/12/2024 12:15 PM EDT [facility] Anion Gap 13 6 - 16 mmol/L 10/12/2024 12:15 PM EDT [facility] Total Calcium, Plasma 9.8 8.9 - 10.2 mg/dL 10/12/2024 12:15 PM EDT [facility] Total Protein 7.7 6.3 - 7.9 g/dL 10/12/2024 12:15 PM EDT [facility] Albumin, Plasma 4.8 3.5 - 5.2 g/dL 10/12/2024 12:15 PM EDT [facility] AST, Plasma 25 10 - 35 U/L 10/12/2024 12:15 PM EDT [facility] ALT, Plasma 24 10 - 35 U/L 10/12/2024 12:15 PM EDT [facility] Alkaline Phosphatase, Plasma 87 35 - 104 U/L 10/12/2024 12:15 PM EDT [facility] Total Bilirubin, Plasma 0.2 0.2 - 1.1 mg/dL 10/12/2024 12:15 PM EDT [facility] eGFRcr 78.0 mL/min/1.7 3m*2 10/12/2024 12:15 PM EDT [facility] Comment:Reported eGFRcr in m L/min/1.73m2 is based the CKD-EPI 2020 equation that does not use a race coefficient. Blood Venous blood specimen / Unknown Venipuncture / Unknown 10/12/2024 10:56 AM EDT 10/12/2024 10:59 AM EDT us Melisa Jeffers MD LAB BLOOD ORDERABLES Final Re sult [facility] [address] [place] [address] * (ABNORMAL) CBC and differential (10/12/2024 10:56 AM EDT) WBC Count 11.01(H) 3.70 - 10.30 10*3/uL LAB HEMATOLOGY METHOD 10/12/2024 12:06 PM EDT [facility] RBC Count 4.35 3.90 - 5.20 10*6/uL LAB HEMATOLOGY METHOD 10/12/2024 12:06 PM EDT [facility] HGB 13.6 11.2 - 15.7 g/dL LAB HEMATOLOGY METHOD 10/12/2024 12:06 PM EDT [facility] HCT 41.8 34.0 - 45.0 % LAB HEMATOLOGY METHOD 10/12/2024 12:06 PM EDT [facility] Platelet Count 345 155 - 369 10*3/uL LAB HEMATOLOGY METHOD 10/12/2024 12:06 PM EDT [facility] MCV 96 79 - 98 fL LAB HEMATOLOGY METHOD 10/12/2024 12:06 PM EDT [facility] MCH 31.3 26.0 - 32.0 pg LAB HEMATOLOGY METHOD 10/12/2024 12:06 PM EDT [facility] MCHC 32.5 30.7 - 35.5 g/dL LAB HEMATOLOGY METHOD 10/12/2024 12:06 PM EDT [facility] RDW 12.6 11.5 - 14.5 % LAB HEMATOLOGY METHOD 10/12/2024 12:06 PM EDT [facility] MPV 10.0 8.8 - 12.5 fL LAB HEMATOLOGY METHOD 10/12/2024 12:06 PM EDT [facility] nRBC 0.0 <=0.0 per 100 WBCs LAB HEMATOLOGY METHOD 10/12/2024 12:06 PM EDT [facility] Differential Type Automated LAB HEMATOLOGY METHOD 10/12/2024 12:06 PM EDT [facility] Neutrophils % 57 % LAB HEMATOLOGY METHOD 10/12/2024 12:06 PM EDT [facility] Lymphocytes % 29 % LAB HEMATOLOGY METHOD 10/12/2024 12:06 PM EDT [facility] Monocytes % 11 % LAB HEMATOLOGY METHOD 10/12/2024 12:06 PM EDT [facility] Eosinophils % 1 % LAB HEMATOLOGY METHOD 10/12/2024 12:06 PM EDT [facility] Basophils % 1 % LAB HEMATOLOGY METHOD 10/12/2024 12:06 PM EDT [facility] Immature Granulocytes % 1 % LAB HEMATOLOGY METHOD 10/12/2024 12:06 PM EDT [facility] Neutrophils Absolute 6.47(H) 1.60 - 6.10 10*3/uL LAB HEMATOLOGY METHOD 10/12/2024 12:06 PM EDT [facility] Lymphocytes Absolute 3.14 1.20 - 3.90 10*3/uL LAB HEMATOLOGY METHOD 10/12/2024 12:06 PM EDT [facility] Monocytes Absolute 1.18(H) 0.30 - 0.90 10*3/uL LAB HEMATOLOGY METHOD 10/12/2024 12:06 PM EDT [facility] Eosinophils Absolute 0.07 0.00 - 0.50 10*3/uL LAB HEMATOLOGY METHOD 10/12/2024 12:06 PM EDT [facility] Basophils Absolute 0.07 0.00 - 0.10 10*3/uL LAB HEMATOLOGY METHOD 10/12/2024 12:06 PM EDT [facility] Immature Granulocytes Absolute 0.08(H) 0.00 - 0.06 10*3/uL LAB HEMATOLOGY METHOD 10/12/2024 12:06 PM EDT [facility] Blood Venous blood specimen / Unknown Venipuncture / Unknown 10/12/2024 10:56 AM EDT 10/12/2024 10:59 AM EDT Narrative [facility] - 10/12/2024 12:06 PM EDT Therapeutic decision making should be based on absolute values, rather than percentages. Melisa Jeffers MD LAB BLOOD ORDERABLES Final Re sult Performing Organization Address [facility]/ZIP Co de Phone Number [facility] [address] [place] [address] * HLA B27 Typing (10/12/2024 10:56 AM EDT) Blood Venous blood specimen / Unknown Venipuncture / Unknown 10/12/2024 10:56 AM EDT 10/12/2024 10:59 AM EDT us Melisa Jeffers MD LAB BLOOD ORDERABLES Final Re sult Performing Organization Address City/[facility]/ZIP Co de Phone Number [facility] [address] [place] [address], [place] * ANTI NUCLEAR AB (10/12/2024 10:56 AM EDT) WARREN INTERPRETIVE COMMENT See Note 10/14/2024 11:39 PM EDT [facility] ([facility]) Anti Nuc Ab Screen <1:80 <1:80 10/14/2024 11:39 PM EDT [facility] ([facility]) Blood Venous blood specimen / Unknown Venipuncture / Unknown 10/12/2024 10:56 AM EDT 10/12/2024 10:59 AM EDT Narrative [facility] ([facility]) - 10/14/2024 11:39 PM EDT Antinuclear antibodies by IFA negative for homogeneous, speckled, nucleolar, centromere, and nuclear dots patterns. Cytoplasmic antibodies by IFA negative for reticular/AMA, discrete/GW body-like, polar/golgi-like, rods and rings, and cytoplasmic speckled patterns. INTERPRETIVE INFORMATION: WARREN Interpretive Comment Presence of antinuclear antibodies (WARREN) is a hallmark feature of systemic autoimmune rheumatic diseases (SARD). However, WARREN lacks diagnostic specificity and is associated with a variety of diseases (cancers, autoimmune, infectious, and inflammatory conditions) and may also occur in healthy individuals in varying prevalence. The lack of diagnostic specificity requires confirmation of positive WARREN by more specific serologic tests. WARREN (nuclear reactivity) positive patterns reported include centromere, homogeneous, nuclear dots, nucleolar, or speckled. WARREN (cytoplasmic reactivity) positive patterns reported include reticular/AMA, discrete/GW body-like, polar/golgi-like, cytoplasmic speckled or rods and rings. All positive patterns are reported to endpoint titers (1:2560). Reported patterns may help guide differential diagnosis, although they may not be specific for individual antibodies or diseases. Mitotic staining patterns not reported. Negative results do not necessarily rule out SARD. Performed By: [employer] [address] [place] [address] Business Quality Assurance Analyst: Arnoldo Butler MD, PhD CLIA Number: [id number] Melias Jeffers MD LAB BLOOD ORDERABLES Final Re sult [facility]) [address] [place] [address] * Cyclic Citrul Peptide Antibody IgG (10/12/2024 10:56 AM EDT) Cyclic Citrul Peptide Antibody IgG <5.0 <=5.0 U/mL 10/12/2024 2:04 PM EDT [facility] Blood Venous blood specimen / Unknown Venipuncture / Unknown 10/12/2024 10:56 AM EDT 10/12/2024 10:59 AM EDT Melisa Jeffers MD LAB BLOOD ORDERABLES Final Re sult [facility] [address] [place] [address] * Rheumatoid Factor, Plasma (10/12/2024 10:56 AM EDT) Pathologist [facility] Rheumatoid Factor, Plasma 11 <14 IU/mL 10/12/2024 12:15 PM EDT [facility] Blood Venous blood specimen / Unknown Venipuncture / Unknown 10/12/2024 10:56 AM EDT 10/12/2024 10:59 AM EDT Melisa Jeffers MD LAB BLOOD ORDERABLES Final Re sult [address] [address] documented in this encounter Visit Diagnoses Diagnosis Polyarthralgia- Primary Pain in joint, multiple sites Ankylosing spondylitis of multiple sites in spine (CMS/[facility]) Polyarthralgia Pain in joint, multiple sites documented in this encounter Additional Health Concerns Assessment Noted Time A fall risk assessment has been complete d for the patient 10/12/2024 9:23 AM EDT A Body Mass Index follow-up plan has been documented for the patient 10/12/2024 10:23 AM EDT documented as of this encounter Care Teams Manager Speech Relationship Specialty Start Date End Date Aime Atkinson MD [address] [place] [address] PCP - General 08/03/20 documented as of this encounter
--- OUTSIDE RECORDS SUMMARY | 2024-10-12 10:50 | XMS_ITS | Encounter Summary ---
Author Organization [facility] Address [address] [place] [address] Care Team Providers Care Banker Mason Name Role Phone Aime Atkinson MD Primary Care Provider [phone] Encounter Details Date Type Department Care Team (Latest Contact Info) Description 10/12/2024 10:50 AM EDT - 10/12/2024 11:59 PM EDT [facility] En[facility] [place] [facility] [address], [address] [place] [address] Polyarthralgia Discharge Disposition: Home or Self Care Social History Tobacco Use Types Packs/Day Years Used Date Smoking Tobacco: Former Cigarettes 1 17 S tarted: 2008 Passive Smoke Exposure: Past Smokeless Tobacco: Never Alcohol Use Standard Drinks/Week Comments Never 0 [...] on file documented as of this encounter Functional Status * AUDIT-C Score [...] things Not at all 10/12/2024 9:23 AM Alana Daigle Feeling down, depressed, or hopeless Not at all 10/12/2024 9:23 AM RANDIT Alana Lloyd Patient Health Questionnaire -2 Score 0 10/12/2024 9:23 AM EDT Alana Lloyd documented as of this encounter Medications at Time of Discharge albuterol 108 (90 Base) MCG/ACT inhaler Inhale 2 puffs every 6 hours as needed. amphetamine-dext roamphetamine (Adderall) 20 MG tablet Take 1 tablet by mouth 3 times a day. 03/07/2013 aspirin 81 MG EC tablet Take 1 tablet by mouth daily. bisoprolol (Zebeta) 5 MG tablet 08/24/2024 Cholecalciferol (D3 PO) Take 13,000 Int'l Units/L by mouth. clonazePAM (KlonoPIN) 2 MG tablet 07/21/2024 doxycycline (Vibramycin) 100 MG capsule 09/21/2024 escitalopram (Lexapro) 20 MG tablet Take 1 tablet by mouth daily. 04/24/2014 fluticasone (Flonase) 50 MCG/ACT nasal spray 05/26/2024 folic acid (Folvite) 1 MG tablet Take 1 tablet by mouth daily. 07/01/2018 furosemide (Lasix) 80 MG tablet 05/26/2024 HYDROcodone-acet aminophen ([place]) 10-325 MG tablet 09/29/2024 LORATADINE PO LORATADINE D 10 MG AT BEDTIME 04/24/2014 losartan (Cozaar) 25 MG tablet Take 1 tablet by mouth daily. 04/24/2014 methylPREDNISolo ne (Medrol) 4 MG tablet 09/29/2024 mupirocin (Bactroban) 2 % ointment 08/24/[address] capsule TAKE 1 CAPSULE TWICE DAILY 30 MINUTES PRIOR TO BREAKFAST AND DINNER. 04/24/2014 Restasis 0.05 % ophthalmic emulsion 05/26/2024 rosuvastatin (Crestor) 10 MG tablet 08/24/2024 Savella 100 MG tablet 08/29/2024 spironolactone (Aldactone) 50 MG tablet Take 1 tablet by mouth 1 time each day. triamcinolone (Kenalog) 0.1 % cream 10/22/2023 documented as of this encounter Plan of Treatment Upcoming Encounters Date Type Department Care Team (Late st Contact Info) Description 11/09/2024 9:00 AM EDT Office Visit [facility] Medicine Specialties [address] [place] [address] Melisa Jeffers MD [address] [facility] [address] [place] [address] documented as of this encounter Procedures Procedure Name Priority Date/Time Associated Diagnosis Comments XR HAND WRIST BILATERAL 2 VIEWS Routine 10/12/2024 11:48 AM EDT Polyarthralgia XR FOOT RIGHT 3+ VIEWS Routine 10/12/2024 11:48 AM EDT Polyarthralgia XR FOOT LEFT 3+ VIEWS Routine 10/12/2024 11:48 AM EDT Polyarthralgia XR KNEE RIGHT 1 OR 2 VIEWS Routine 10/12/2024 11:48 AM EDT Polyarthralgia XR KNEE LEFT 1 OR 2 VIEWS Routine 10/12/2024 11:48 AM EDT Polyarthralgia XR SHOULDER RIGHT 2+ VIEWS Routine 10/12/2024 11:48 AM EDT Polyarthralgia XR SHOULDER LEFT 2+ VIEWS Routine 10/12/2024 11:48 AM EDT Polyarthralgia documented in this encounter Results * XR Shoulder Left [...] 12:02 PM Final report signed by Alexander iMxon MD on 10/12/2024 12:14 PM Melisa Jeffers [...] MD IMG XR PROCEDURES Final Resul t documented in this encounter Visit Diagnoses Diagnosis Polyarthralgia Pain in joint, multiple sites documented in this encounter Additional Health Concerns Assessment Noted Time A fall risk assessment has been complete d for the patient 10/12/2024 9:23 AM EDT A Body Mass Index follow-up plan has been documented for the patient 10/12/2024 10:23 AM EDT documented as of this encounter Care Teams Banker Mason Relationship Specialty Start Date End Date Aime Atkinson MD [address] [place] [address] [address] [place] [address] PCP - General 08/03/20 documented as of this encounter
--- NOTE | 2024-10-17 17:14 | XR_ITS ---
PROCEDURE INFORMATION: Exam: XR Left Tibia and Fibula Exam date and time: 10/17/2024 5:13 PM Age: 49 years old Clinical indication: Pain; Lower leg; Left; Additional info: Left leg pain and swelling anterior tibia, recent stitches removed still having pain and swelling at lac site TECHNIQUE: Imaging protocol: Radiologic exam of the left tibia and fibula. Views: 2 views. COMPARISON: CR XR FOOT LT MIN 3V 08/15/2022 4:28 PM FINDINGS: Bones/joints: Normal. Soft tissues: Normal. IMPRESSION: No acute findings.
--- OUTSIDE RECORDS SUMMARY | 2024-10-17 17:15 | XMS_ITS | Encounter Summary ---
Author Organization [facility] Address [address] [place] [address] Care Team Providers Care Oracle Ebs Developer Name Role Phone Aime Atkinson MD Primary Care Provider [phone] Encounter Details Date Type Department Care Team (Latest Contact Info) Description 10/12/2024 Travel Social History Tobacco Use Types Packs/Day Years [...] of Assessment Author 0 10/12/2024 9:26 AM RANDIT Benji Lloyd * Question Answer Date of Assessment Author Q1: How often do you have a drink containing alcohol? Never 10/12/2024 9:26 AM RANDIT Alana Lloyd Q2: How many drinks containing [...] things Not at all 10/12/2024 9:23 AM EDT Alana Lloyd Feeling down, depressed, or hopeless Not at all 10/12/2024 9:23 AM EDT Alana Lloyd Patient Health Questionnaire -2 Score 0 10/12/2024 9:23 AM EDT Alana Lloyd documented as of this encounter Plan of Treatment Upcoming Encounters Date Type Department Care Team (Late st Contact Info) Description 11/09/2024 9:00 AM EDT Office Visit [facility] Medicine Specialties [address] [place] [address] Melisa Jeffers MD [address] [place] [address] documented as of this encounter Visit Diagnoses Not on filedocumented in this encounter Additional Health Concerns Assessment Noted Time A fall risk assessment has been complete d for the patient 10/12/2024 9:23 AM EDT A Body Mass Index follow-up plan has been documented for the patient 10/12/2024 10:23 AM EDT documented as of this encounter Care Teams Oracle Ebs Developer Relationship Specialty Start Date End Date Aime Atkinson MD [address] [place] [address] PCP - General 08/03/20 documented as of this encounter
--- OUTSIDE RECORDS SUMMARY | 2024-10-17 17:16 | XMS_ITS | Encounter Summary ---
Author Organization [facility] [place] [address] Care Team Providers Care Aging Department Supervisor Name Role Phone Aime Atkinson MD Primary Care Provider [phone] Nel Levine MD Unavailable [phone] Encounter Details Date Type Department Care Team (Latest Contact Info) Description 10/04/2024 Travel Social History Tobacco Use Types Packs/Day Years Used Date Smoking Tobacco: Former Cigarettes 0.5 16.6 0 08/25/2007 - 03/23/2024 Smokeless Tobacco: Never Alcohol Use Standard Drinks/Week Comments No 0 (1 standard drink = 0.6 oz pur e alcohol) [facility] Utilities Answer Date Recorded In the past 12 months has e electric, gas, oil, or water company threatened to shut off services in your home? No 10/16/2023 Overall Financial Resource Strain (CARDIA) Answe r Date Recorded How hard is it for you to pa y for the very basics like food, housing, medical care, and heating? Not very hard 10/16/2023 PHQ-2 Answer Date Recorded PHQ-2 Total Score 0 10/16/2023 [facility] [place] [facility] Occup[facility] - Occupational Stress [...] money to get more. Never true 10/16/2023 [facility] Transportation Answer D ate Recorded In [...] as of this encounter Functional Status * Is the person deaf or does he/she have serious difficulty hearing? Answer Date of Assessment Author No 08/26/2019 3:12 PM EDT Arleen Bledsoe, ODALYS * Is the person blind or does [...] Author No 08/26/2019 3:12 PM EDT Arleen Bledsoe, ODALYS * Because of a physical, mental or emotional condition, does this person have difficulty doing errands alone such as visiting a doctor's office or shopping? Answer Date of Assessment Author No 08/26/2019 3:12 PM EDT Arleen Bledsoe, ODALYS * Suicide Severity Rating Answer Date of Assessment Author No Risk 10/04/2024 8:28 PM EDT Jennifer Post RN * [place] Suicide Severity Rating Scale (Q shift for [...] Date Author No 08/26/2019 3:12 PM EDT Arleen Bledsoe RN documented in this encounter Plan of Treatment Not on file documented as of this encounter Visit Diagnoses Not on filedocumented in this encounter Care Teams Aging Department Supervisor Relationship Specialty Start Date End Date Aime Atkinson MD [address] [place] [address] PCP - General Internal Medicine 04/29/16 Nel Levine MD [address] [id number] Physician Internal Medicine-Rheumatology 10/08/16 documented as of this encounter
--- OUTSIDE RECORDS SUMMARY | 2024-10-17 17:16 | XMS_ITS | Clinical Summary ---
Author Organization [facility] Address [address] [place] [address] Phone Care Team Providers Care Alpaca Farmer Name Role Phone Aime Atkinson MD Primary Care Provider [phone] Nel Levine MD Unavailable [phone] Allergies Active Allergy Reactions Criticality Noted Date Comments Duloxetine Nausea And Vomiting 07/02/2015 Paroxetine Hcl Nausea And Vomiting 07/02/2015 Medications HYDROCODONE BIT/ACETAMINOPHE N (HYDROCODONE-GERMAINE TAMINOPHEN ORAL) Take 10 mg by mouth 3 times daily. Active CLONAZEPAM ORAL Take 2 mg by mouth nightly. Active ESCITALOPRAM OXALATE (LEXAPRO ORAL) Take 30 mg by mouth daily. Active ESOMEPRAZOLE MAGNESIUM (NEXIUM ORAL) Take 40 mg by mouth daily. Active AMPHET ASP/AMPHET/D-AMP HET (ADDERALL ORAL) Take 20 mg by mouth 3 times daily. Active MILNACIPRAN HCL (SAVELLA ORAL) Take 200 mg by mouth nightly. Active loratadine (CLARITIN) 10 mg Oral Tablet Take 10 mg by mouth daily. Active senna-docusate (SENOKOT-S) 8.6-50 mg Oral Tablet Take 2 Tablets by mouth nightly. Active fluticasone (FLONASE) 50 mcg/actuation Nasl [place], Suspension 2 Sprays by Nasal route daily. Active azelastine (ASTELIN) 137 mcg (0.1 %) Nasl Aerosol, [place] 1 [place] in each nostril 2 times daily. Use in each nostril as directed Active cyclobenzaprine (FLEXERIL) 5 mg Oral Tablet Take 5 mg by mouth 3 times daily as needed for Muscle spasms. Active fUROsemide (LASIX) 20 mg Oral Tablet Take 40 mg by mouth every 12 hours. Active bisoprolol (ZEBETA) 10 mg Oral Tablet Take 10 mg by mouth daily. Active olopatadine (PATADAY) 0.2 % Opht Drops 1 Drop daily. Activ e rosuvastatin (CRESTOR) 5 mg Oral Tablet Take 10 mg by mouth daily. Active aspirin 81 mg Oral Tablet, Chewable Take 81 mg by mouth daily. Active folic acid (FOLVITE) 1 mg Oral Tablet Take 1 mg by mouth daily. Active methylPREDNISolo ne (MEDROL) 4 mg Oral Tablet Take 4 mg by mouth daily. take 3 tabs daily for pain Active albuterol (PROVENTIL HFA;VENTOLIN HFA) 90 mcg/actuation Inhl HFA Aerosol Inhaler Inhale 2 Puffs into the lungs every 6 hours as needed for Wheezing or Shortness of Breath. Active spironolactone (ALDACTONE) 50 mg Oral Tablet Take 50 mg by mouth daily. Active isosorbide mononitrate (IMDUR) 30 mg Oral Tablet Sustained Release 24 hr Take 1 Tablet by mouth daily. 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 [address] Marck Ellis MD Laceration of left lower extremity, initial encounter (Primary Dx); Chest pain, unspecified type; Nonintractable episodic headache, unspecified headache type Discharge Disposition: Home or Self Care 10/04/2024 Travel from Last 3 Months Immunizations Immunization Administration Dates Next Due Tdap 04/22/2022,05/01/2011 Surgical History Surgery Date Site/Laterality Comments SECTION HYSTERECTOMY Medical History Medical History Date Comments Chronic pain Fibromyalgia Depression Anxiety Hypertension Arthritis rheumatoid CAD (coronary artery disease) CHF (congestive heart failure) (HCC) RA (rheumatoid arthritis) (HCC) PAD (peripheral artery disease) Family History Medical History Relation Name Comments Diabetes Father Emphysema Father Heart Disease Father Other Father gout Osteoporosis Mother Rheum Arthritis Mother Rheumatologic Disease Mother Diabetes Paternal Uncle Rheum Arthritis Sister 9 Elena Rheum Arthritis Sister 10 Kathy Relation Name Status Comments Brother 1 Alive Brother 2 Alive Father Alive Mother Alive Paternal Uncle Sister 1 Alive Sister 2 Alive Sister 3 Alive Sister 4 Alive Sister 5 Alive Sister 6 Alive Sister 7 Alive Sister 8 Alive Sister 9 Elena Sister 10 Kathy Son Alive Social History Tobacco Use Types Packs/Day Years Used Date Smoking Tobacco: Former Cigarettes 0.5 16.6 0 08/25/2007 - 03/23/2024 Smokeless Tobacco: Never Tobacco Cessation:Counseling Given: Not Answered Alcohol Use Standard Drinks/Week Comments No 0 (1 standard drink = 0.6 oz pur e alcohol) [facility] Utilities Answer Date Recorded In the past 12 months has [employer], gas, oil, or water [employer] threatened to shut off services in your home? No 10/16/2023 Overall Financial Resource Strain (CARDIA) Answe r Date Recorded How hard is it for you to pa y for the very basics like food, housing, medical care, and heating? Not very hard 10/16/2023 PHQ-2 Answer Date Recorded PHQ-2 Total Score 0 10/16/2023 [facility] [place] [facility] - Occupational Stress [...] money to get more. Never true 10/16/2023 [facility] IP Transportation Answer D ate Recorded [...] on file Sexual Orientation Not on file Obstetrics History Last Filed Vital Signs Vital Sign Reading [...] Mass Index 27.16 10/04/2024 8:41 PM EDT Plan of Treatment Health Maintenance Due Date Last Done Comments Wellness Exam Medicare 1979 Pneumococcal Vaccine 0-49 (1 of 2 - PCV) 1995 Cervical Cancer Screening 1997 Pap Smear 1997 HPV/Pap Cotest 2006 Breast Cancer Screening 2016 Cologuard 2021 Colon Cancer Screening 2021 Colonoscopy 2021 FIT 2021 Sigmoidoscopy 2021 Virtual Colonography 2021 COVID-19 Vaccine ( season) 2023 Influenza Vaccine (#1) 2024 , 12/28/2023, 12/28/2019, Additional history exists DTaP/TDaP/Td (4 - Td or Tdap) 04/22/2032 04/22/2022, 05/01/2011, 04/12/2010 Hepatitis B Vaccine Completed 07/28/1997, 11/17/1996, 10/03/1996 Meningococcal B Vaccine Aged Out No l onger eligible based on patient's age to complete this topic Procedures Procedure Name Priority Date/Time Associated Diagnosis Comments SCANNED EKG 10/06/2024 8:41 AM EDT ED LACERATION REPAIR Routine 10/04/2024 9:52 PM EDT Laceration of left lower extremity, initial encounter XR CHEST AP PORTABLE STAT 10/04/2024 8:59 PM EDT NT PROBNP STAT 10/04/2024 8:51 PM EDT TROPONIN-T HIGH SENSITIVITY BASELINE W/ REFLEX STAT 10/04/2024 8:51 PM EDT BASIC METABOLIC PANEL STAT 10/04/2024 8:51 PM EDT CBC WITH DIFF STAT 10/04/2024 8:51 PM EDT EK EKG 12 LEAD STAT 10/04/2024 8:46 PM EDT SALINE LOCK IV STAT 10/04/2024 8:46 PM EDT GLUCOSE METER POC Routine 10/04/2024 8:4 6 PM EDT from Last 3 Months Results * SCANNED EKG (10/06/2024 8:41 AM EDT) Anatomical Region Laterality Modality Other 10/06/2024 8:41 AM EDT Unknown Provider IMG ECG ORDERABLES Final Result * Laceration Repair (10/04/2024 9:52 PM EDT) Narrative [facility] - 10/04/2024 9:52 PM EDT Marck Ellis MD 10/04/2024 10:06 PM Laceration Repair Date/Time: 10/04/2024 9:52 PM Performed by: Gomez Bailey APRN Authorized by: Gomez Bailey APRN Consent: Consent obtained: Verbal Consent given by: Patient Risks discussed: Infection, poor cosmetic result and poor wound healing [place] protocol: Patient identity confirmed: Verbally with patient [...] APRN PROCEDURE/MINOR SURGICAL O RDERABLES Final Result [facility] [address] [place] [address] * XR CHEST AP PORTABLE (10/04/2024 8:59 [...] DIAGNOSTIC IMAGING ORD ERABLES Final Result * TROPONIN-T HIGH SENSITIVITY BASELINE W/ REFLEX (10/04/2024 8:51 PM EDT) [facility] [id number] 9 <14 ng/L 10/04/2024 9:[address] [facility] Blood VENOUS BLOOD / Unknown Venipuncture / Unknown 10/04/2024 8:51 PM EDT 10/04/2024 8:55 PM EDT Narrative [facility] - 10/04/2024 9:26 PM EDT Ingestion of radha doses of biotin (>5 mg/day) taken within 8 hours of drawing blood sample can interfere with this immunoassay test. Gomez Bailey APRN CHEMISTRY ORDERABLES Final Result [facility] [address] [place] [address] * (ABNORMAL) CBC WITH DIFF (10/04/2024 8:51 PM EDT) WBC 11.4(H) 3.7 - 10.3 x10(3)/mcL 10/04/2024 8:[address] [facility] RBC 4.16 3.90 - 5.20 x10(6)/[facility] 10/04/2024 8:[address] [facility] Hgb 13.0 11.2 - 15.7 g/dL 10/04/2024 8:[address] [facility] Hct 40.5 34.0 - 45.0 % 10/04/2024 8:[address] [facility] MCV 97.4 80.0 - 100.0 fL 10/04/2024 8:[address] [facility] MCH 31.3 26.0 - 34.0 pg 10/04/2024 8:[address] [facility] MCHC 32.1 30.7 - 35.5 g/dL 10/04/2024 8:[address] [facility] RDW 12.7 <=14.9 % 10/04/2024 8:[address] [facility] Platelet 314 155 - 369 x10(3)/[facility] 10/04/2024 8:[address] [facility] MPV 9.3 8.8 - 12.5 fL 10/04/2024 8:[address] [facility] Neut Percent 66.5 % 10/04/2024 8:[address] [facility] Comment:Neutrophils equals s egs plus bands Imm Gran% 0.4 % 10/04/2024 8:[address] [facility] Comment:Automated count of m etamyelocytes, myelocytes and promyelocytes. Lymph Percent 23.2 % 10/04/2024 8:[address] [facility] Barton Percent 8.8 % 10/04/2024 8:[address] [facility] Eos Percent 0.9 % 10/04/2024 8:[address] [facility] Baso Percent 0.2 % 10/04/2024 8:[address] [facility] Neut # 7.6(H) 1.6 - 6.1 x10(3)/[facility] 10/04/2024 8:[address] [facility] Comment:Neutrophils equals s egs plus bands IMMGRAN# 0.0 0.0 - 0.1 x10(3)/[facility] 10/04/2024 8:[address] [facility] Comment:Automated count of m etamyelocytes, myelocytes and promyelocytes. An absolute IG <0.1 is reported as 0.0. Lymph # 2.7 1.2 - 3.9 x10(3)/[facility] 10/04/2024 8:[address] [facility] Barton # 1.0(H) 0.3 - 0.9 x10(3)/[facility] 10/04/2024 8:[address] [facility] Eos# 0.1 0.0 - 0.5 x10(3)/[facility] 10/04/2024 8:[address] [facility] Baso # 0.0 0.0 - 0.1 x10(3)/[facility] 10/04/2024 8:[address] [facility] Blood VENOUS BLOOD / Unknown Venipuncture / Unknown 10/04/2024 8:51 PM EDT 10/04/2024 8:55 PM EDT Gomez Bailey INTERLOCKING INSTALLER HEMATOLOGY ORDERABLES Makayla fournier Result [facility] [address] [place], [place] [id number] * (ABNORMAL) NT PROBNP (10/04/2024 8:51 PM EDT) NT Pro-BNP 477(H) <=192 pg/mL 10/04/2024 9:[address] [facility] Blood VENOUS BLOOD / Unknown Venipuncture / Unknown 10/04/2024 8:51 PM EDT 10/04/2024 8:55 PM EDT Narrative [facility] - 10/04/2024 9:26 PM EDT An NT pro-BNP level less than 300 pg/mL in any patient, regardless of age, effectively rules out acute CHF with a 99% negative predictive value. Ingestion of radha doses of biotin (>5 mg/day) taken within 8 hours of drawing blood sample can interfere with this immunoassay test. Gomez Bailey APRN CHEMISTRY ORDERABLES Final Result [facility] [address] [place], [place] [id number] * BASIC METABOLIC PANEL (10/04/2024 8:51 PM EDT) Sodium 138 136 - 145 mmol/L 10/04/2024 9:[address] [facility] Potassium 3.5 3.5 - 5.0 mmol/L 10/04/2024 9:[address] [facility] Chloride 102 98 - 107 mmol/L 10/04/2024 9:[address] [facility] Total CO2 25 22 - 29 mmol/L 10/04/2024 9:[address] [facility] Anion Gap 11 7 - 16 mmol/L 10/04/2024 9:[address] [facility] Calcium 9.1 8.6 - 10.4 mg/dL 10/04/2024 9:[address] [facility] Glucose Lvl 70 70 - 99 mg/dL 10/04/2024 9:[address] [facility] BUN 15 6 - 20 mg/dL 10/04/2024 9:[address] [facility] Creatinine 0.99 0.51 - 1.30 mg/dL 10/04/2024 9:[address] [facility] eGFR (CKD-EPIcr 2020) 70 >=60 mL/min/1.7 3 m2 10/04/2024 9:[address] [facility] Comment:Estimated GFR was ca lculated using the CKD-EPIcr (2020) equation refit without race. The equation is recommended by the National Kidney Foundation - [place] [employer] of Nephrology Task Force. Blood VENOUS BLOOD / Unknown Venipuncture / Unknown 10/04/2024 8:51 PM EDT 10/04/2024 8:55 PM EDT Gomez J Fichner INTERLOCKING INSTALLER CHEMISTRY ORDERABLES Final Result [facility] [address] [place] [address] * EK EKG 12 LEAD (10/04/2024 8:46 PM EDT) Anatomical Region Laterality Modality Electrocardiogra phy 10/04/2024 8:56 PM EDT Impressions 10/04/2024 10:[address] [facility] Test Date: 2024-10-04 Pat Name: LUIS FREY Department: DEPID Room: 11 Gender: Female Foundry Tender: : 1975 Requested By: GOMEZ Ron Order Number: [id number] Reading MD: Reji Kay Measurements Intervals [place] Rate: 89 P: 57 MD: 156 QRS: 12 QRSD: 87 T: 52 QT: 362 QTc: 442 Interpretive Statements SINUS RHYTHM Electronically Signed On 10-04-2024 22:17:12 EDT by Reji Kay Narrative Procedure Note Reji Kay MD - 10/04/[address] Test Date: 2024-10-04 Pat Name: LUIS FREY Department: DEPID Room: 11 Gender: Female Foundry Tender: : 1975 Requested By: GOMEZ Ron Order Number: [id number] Reading MD: Reji Kay Measurements Intervals [place] Rate: 89 P: 57 MD: 156 QRS: 12 QRSD: 87 T: 52 QT: 362 QTc: 442 Interpretive Statements SINUS RHYTHM Electronically Signed On 10-04-2024 22:17:12 EDT by Reji Kay us Gomez Bailey INTERLOCKING INSTALLER IMG ECG ORDERABLES Final R esult * GLUCOSE METER POC (10/04/2024 8:46 PM EDT) Glucose Meter POC 89 70 - 100 mg/dL 10/04/2024 8:[address] [facility] Sample Type Capillary 10/04/2024 8:[address] [facility] Patient Status Non-Critical Patient 10/04/2024 8:[address] [facility] Blood BLOOD SPECIMEN / Unknown 10/04/2024 8:46 PM EDT 10/04/2024 8:48 PM EDT Marck Ellis MD POINT OF CARE TEST ORDERABLES F inal Result [facility] [address] [place] [address] from Last 3 Months Insurance [place] [address] [place] [address] MEDICA[place] Advance Directives For more information, please contact: [phone] * Full Code (Latest Code Status on File) Date Activated Date Inactivated Comments 10/15/2023 10:57 PM 10/19/2023 8:06 PM * Full Code Date Activated Date Inactivated Comments 10/15/2023 10:56 PM 10/15/2023 10:57 PM * Full Code Date Activated Date Inactivated Comments 10/15/2023 6:01 PM 10/15/2023 10:56 PM * Full Code Date Activated Date Inactivated Comments 08/25/2019 3:12 PM 08/26/2019 9:48 PM Care Teams Alpaca Farmer Relationship Specialty Start Date End Date Aime Atkinson MD [address] [place] [address] [address] [place] [address] PCP - General Internal Medicine 04/29/16 Nel Levine MD [address] [place] [address] Physician Internal Medicine-Rheumatology 10/08/16
--- OUTSIDE RECORDS SUMMARY | 2024-10-17 17:16 | XMS_ITS | Clinical Summary ---
Author Organization [facility] Address [address] [place] [address] Care Team Providers Care Air Defense Specialist Name Role Phone Aime Atkinson MD Primary Care Provider [phone] Allergies Active Allergy Reactions Criticality Noted Date Comments Duloxetine Hcl Unknown - Patient states they do not know rxn details Low 07/01/2018 Gabapentin Unknown - Patient states they do not know rxn details Low 07/01/2018 Pregabalin Vomiting High 10/12/2024 Paroxetine Unknown - Patient states they do not know rxn details Low 07/01/2018 Tape/Bandaid Adhesive Rash Medium 10/12/2024 Skin comes off Medications albuterol 108 (90 Base) MCG/ACT inhaler Inhale 2 puffs every 6 hours as needed. Active amphetamine-dex troamphetamine (Adderall) 20 MG tablet Take 1 tablet by mouth 3 times a day. 3 Active doxycycline (Vibramycin) 100 MG capsule 5 Active folic acid (Folvite) 1 MG tablet Take 1 tablet by mouth daily. 9 Active furosemide (Lasix) 80 MG tablet 5 Active HYDROcodone-karo taminophen (Salem) 10-325 MG tablet 5 Active LORATADINE PO LORATADINE D 10 MG AT BEDTIME 5 Active losartan (Cozaar) 25 MG tablet Take 1 tablet by mouth daily. 5 Active methylPREDNISol one (Medrol) 4 MG tablet 5 Active rosuvastatin (Crestor) 10 MG tablet 5 Active bisoprolol (Zebeta) 5 MG tablet 5 Active clonazePAM (KlonoPIN) 2 MG tablet 5 Active Restasis 0.05 % ophthalmic emulsion 5 Active escitalopram (Lexapro) 20 MG tablet Take 1 tablet by mouth daily. 5 Active NexIUM [address] capsule TAKE 1 CAPSULE TWICE DAILY 30 MINUTES PRIOR TO BREAKFAST AND DINNER. 5 Active fluticasone (Flonase) 50 MCG/ACT nasal spray 5 Active Savella 100 MG tablet 5 Active spironolactone (Aldactone) 50 MG tablet Take 1 tablet by mouth 1 time each day. Active triamcinolone (Kenalog) 0.1 % cream 4 Active mupirocin (Bactroban) 2 % ointment 5 Active Cholecalciferol (D3 PO) Take 13,000 Int'l Units/L by mouth. Active aspirin 81 MG EC tablet Take 1 tablet by mouth daily. Active Encounters Date Type Department Care Team Description 10/12/2024 10:50 AM EDT - 10/12/2024 11:59 PM EDT Hospital Encounter [facility] [address], [address] [place] [address] Polyarthralgia Discharge Disposition: Home or Self Care 10/12/2024 9:00 AM EDT Consult [facility] [address], [address] [place] [address] Melisa Jeffers MD Polyarthralgia (Primary Dx); Ankylosing spondylitis of multiple sites in spine ([facility]/HCC) 10/12/2024 Travel from Last 3 Months Immunizations Immunization Administration Dates Next Due Hep B, adult 07/28/1997,11/17/1996,10/03/1996 Influenza, injectable, MDCK, preservative free, quadrivalent 01/26/2017 Influenza, seasonal, injectable 01/29/2009,04/26 Influenza, seasonal, injecta ble, preservative free 12/28/2023 Tdap 04/22/2022,04/12/2010 Family History Medical History Relation Name Comments Diabetes Father Heart attack Father Hyperlipidemia Father Hypertension Father Kidney Stones Father Sleep apnea Father Conversions - Other Mother Rheumato id arteritis Hypertension Mother Uterine cancer Mother Colon cancer Other Conversions - Other Sister cutaneou s lupus erythematosus Relation Name Status Comments Father Mother Other Sister Social History Tobacco Use Types Packs/Day Years [...] on file Sexual Orientation Not on file Last Filed Vital Signs Vital Sign Reading [...] Mass Index 27.34 10/12/2024 9:21 AM EDT Plan of Treatment Upcoming Encounters Date Type Department Care Team (Late st Contact Info) Description 11/09/2024 9:00 AM EDT Office Visit [facility] [address] [place] [address] Melisa Jeffers MD [address] [place] [address] Health Maintenance Due Date Last Done Comments [facility]-HIV Screening 1976 [facility]-Medicare Annual Wellness (AWV) 1975 [facility]-Infant/Child/Adol SDOH Screenings 1976 [facility]- SDOH Screenings 1994 [facility]-Adult SDOH Screenings 1994 CT Colonography 2021 Colonoscopy 2021 FIT-DNA 2021 FIT 2021 FOBT 2021 Sigmoidoscopy 2021 [facility]-Colorectal Cancer Screening 2021 LSG-AXISG-53 Vaccine ( season) 2023 [facility]-Influenza Vaccine (#1) 11/21/202412/27, 01/26/2017, 01/29/2009, Additional history exists [facility]-Depression Screening 10/12/2025 10/12/2024 [facility]-Zoster Vaccines (1 of 2) 2026 [facility]-DTaP,Tdap,and Td Vaccines (4 - Td or Tdap) 04/22/2032 04/22/2022, 05/01/2011, 04/12/2010 [facility]-Hepatitis B Vaccines Completed 998, 11/17/1996, 10/03/1996 [facility]-Hepatitis C Screening Completed 10/12/2024, 11/2017 [facility]-Obesity Intervention Completed 10/12/2024 HPV Vaccines Aged Out No longer eligi ble based on patient's age to complete this topic [facility]-HIB Vaccines Aged Out No longer e ligible based on patient's age to complete this topic [facility]-Hepatitis A Vaccines Aged Out No longer eligible based on patient's age to complete this topic [facility]-IPV Vaccines Aged Out No longer e ligible based on patient's age to complete this topic [facility]-Pneumococcal Vaccine: Pediatrics (0 to 5 Years) and At-Risk Patients (6 to 49 Years) Aged Out No longer eligible based on patient's age to complete this topic [facility]-Rotavirus Vaccines Aged Out No lo nger eligible based on patient's age to complete this topic Procedures Procedure Name Priority Date/Time Associated Diagnosis Comments XR SHOULDER LEFT 2+ VIEWS Routine 10/12/2024 11:48 AM EDT Polyarthralgia XR SHOULDER RIGHT 2+ VIEWS Routine 10/12/2024 11:48 AM EDT Polyarthralgia XR KNEE LEFT 1 OR 2 VIEWS Routine 10/12/2024 11:48 AM EDT Polyarthralgia XR KNEE RIGHT 1 OR 2 VIEWS Routine 10/12/2024 11:48 AM EDT Polyarthralgia XR FOOT RIGHT 3+ VIEWS Routine 11:48 AM EDT Polyarthralgia XR FOOT LEFT 3+ VIEWS Routine 10/12/2024 11:48 AM EDT Polyarthralgia XR HAND WRIST BILATERAL 2 VIEWS Routine 10/12/2024 11:48 AM EDT Polyarthralgia DNA ISOLATION AND HOLD (HLA) Routine 10/12/2024 10:56 AM EDT Polyarthralgia Ankylosing spondylitis of multiple sites in spine ([facility]) RHEUMATOID FACTOR, PLASMA Routine 10/12/2024 10:56 AM EDT Polyarthralgia CYCLIC CITRUL PEPTIDE ANTIBODY IGG Routine 10/12/2024 10:56 AM EDT Polyarthralgia ANTINUCLEAR ANTIBODY (WARREN) WITH HEP-2 SUBSTRATE, IGG BY IFA (SO) Routine 10/12/2024 10:56 AM EDT Polyarthralgia HLA B27 TYPING Routine 10/12/2024 10:56 AM EDT Polyarthralgia Ankylosing spondylitis of multiple sites in spine ([facility]) CBC WITH AUTO DIFFERENTIAL Routine 10/12/2024 10:56 AM EDT Polyarthralgia COMPREHENSIVE METABOLIC PANEL, PLASMA Routine 10/12/2024 10:56 AM EDT Polyarthralgia HEPATITIS B SURFACE ANTIGEN Routine 10/12/2024 10:56 AM EDT Polyarthralgia HEPATITIS C ANTIBODY W/REFLEX TO HCV QUANT PCR Routine 10/12/2024 10:56 AM EDT Polyarthralgia QUANTIFERON TB GOLD PLUS Routine 10/12/2024 10:56 AM EDT Polyarthralgia SEDIMENTATION RATE, AUTOMATED Routine 10/12/2024 10:56 AM EDT Polyarthralgia C-REACTIVE PROTEIN, PLASMA Routine 10/12/2024 10:56 AM EDT Polyarthralgia ANCA VASCULITIS PROFILE (SO) Routine 10/12/2024 10:56 AM EDT Polyarthralgia DOUBLE-STRANDED DNA (DSDNA) ANTIBODY, IGG BY IFA (SO) Routine 10/12/2024 10:56 AM EDT Polyarthralgia C3 COMPLEMENT Routine 10/12/2024 10:56 AM EDT Polyarthralgia C4 COMPLEMENT Routine 10/12/2024 10:56 AM EDT Polyarthralgia SSA 52 AND 60 (RO) (DIDI) ANTIBODIES, IGG (SO) Routine 10/12/2024 10:56 AM EDT Polyarthralgia MUKHERJEE (DIDI) ANTIBODY, IGG (SO) Routine 10/12/2024 10:56 AM EDT Polyarthralgia SSB (LA) (DIDI) ANTIBODY, IGG (SO) Routine 10/12/2024 10:56 AM EDT Polyarthralgia from Last 3 Months Results * XR Hand and Wrist Bilateral 2 [...] swelling. Procedure Note Alexander Mixon MD - 07/23/2025 CLINICAL INDICATION: polyarthralgia TECHNIQUE: XR HAND WRIST [...] Per this written report. Drafted by Alexander Mxion MD on 10/12/2024 12:02 PM Final report [...] PROCEDURES Final Resul t * XR Shoulder Left 2+ Views (10/12/2024 [...] IMG XR PROCEDURES Final Resul t * ANCA Vasculitis profile (10/12/2024 10:56 AM EDT) Myeloperoxidase (MPO) Ab, IgG 0 0 - 19 AU/mL 10/15/2024 2:18 PM EDT [facility] ([facility]) Serine Proteinase 3 (PR3) Ab, IgG 0 0 - 19 AU/mL 10/15/2024 2:18 PM EDT [facility] ([facility]) ANCA IFA Titer <1:20 <1:20 10/15/2024 2:18 PM EDT [facility] ([facility]) ANCA IFA Pattern None Detected None Detected 10/15/2024 2:18 PM EDT [facility] ([facility]) Blood Venous blood specimen / Unknown Venipuncture / Unknown 10/12/2024 10:56 AM EDT 10/12/2024 10:59 AM EDT Narrative [facility] - 10/15/2024 2:18 PM EDT INTERPRETIVE [...] collagen vascular disease or arthritis. Performed By: [facility] [address] [place] [id number] Registered Nurse Hh Case Manager: Arnoldo Butler MD, PhD CLIA Number: [id number] us Melisa Jeffers MD LAB BLOOD ORDERABLES Final Re sult [facility]) [address] [place] [address] * DNA Isolation and Hold (HLA) (10/12/2024 10:56 AM EDT) Blood Venous blood specimen / Unknown Venipuncture / Unknown 10/12/2024 10:56 AM EDT 10/12/2024 10:59 AM EDT Melisa Jeffers MD LAB MOLECULAR DIAGNOSTICS ORD ERABLES Final Result [facility] [address] [place] [address], * Mukherjee (DIDI) Antibody, IgG (10/12/2024 10:56 AM EDT) Mukherjee (DIDI) Antibody, IgG 0 0 - 40 AU/mL 10/14/2024 3:16 PM EDT [facility] ([facility]) Serum 10/12/2024 10:5 6 AM EDT 10/12/2024 10:59 AM EDT Narrative [facility] ([facility]) - 10/14/2024 3:16 PM [...] associations with SLE clinical manifestations. Performed By: [facility] [address] [place] [address] Registered Nurse Hh Case Manager: Arnoldo Butler MD, PhD CLIA Number: [id number] Melisa Jeffers MD LAB REF LAB BLOOD AND FLUID O RD Final Result [facility] ([facility]) [address] [place] [address] * SSA 52 and 60 (Ro) (DIDI) Antibodies, IgG (10/12/2024 10:56 AM EDT) SSA-52 (RO52) (DIDI) Antibody, IgG 0 0 - 40 AU/mL 10/14/2024 3:16 PM EDT [facility] ([facility]) SSA-60 (RO60) (DIDI) Antibody, IgG 1 0 - 40 AU/mL 10/14/2024 3:16 PM EDT [facility] ([facility]) Serum 10/12/2024 10:5 6 AM EDT 10/12/2024 10:59 AM EDT Narrative [facility]) - 10/14/2024 3:16 PM EDT INTERPRETIVE INFORMATION: [...] AU/mL or Greater .......... Positive Performed By: [facility] [address] [place], [place] [id number] Registered Nurse Hh Case Manager: Arnoldo Butler MD, PhD CLIA Number: [id number] us Melisa Jeffers MD LAB REF LAB BLOOD AND FLUID O RD Final Result [facility] [employer]) [address] [place] [id number] * SSB (La) (DIDI) Antibody, IgG (10/12/2024 10:56 AM EDT) SSB (LA) (DIDI) Antibody, IgG 1 0 - 40 AU/mL 10/14/2024 11:49 AM EDT [facility]) Serum Venous blood specimen / Unknown 10/12/2024 10:56 AM EDT 10/12/2024 10:59 AM EDT Narrative [facility]) - 10/14/2024 11:49 AM EDT INTERPRETIVE INFORMATION: [...] (PSS) also have this antibody. Performed By: [facility] [address] [place] [address] Registered Nurse Hh Case Manager: Arnoldo Butler MD, PhD CLIA Number: [id number] Melisa Jeffers MD LAB BLOOD ORDERABLES Final Re sult Performing Organization Address City/[facility]/ZIP Co de Phone Number [facility] [address] [place] [address] * HLA B27 Typing (10/12/2024 10:56 AM EDT) Blood Venous blood specimen / Unknown Venipuncture / Unknown 10/12/2024 10:56 AM EDT 10/12/2024 10:59 AM EDT Melisa Jeffers MD LAB BLOOD ORDERABLES Final Re sult [facility] [address] [place] [address], * Hepatitis C Antibody (10/12/2024 10:56 AM EDT) Hepatitis C Antibody Negative Negative 10/12/2024 12:24 PM EDT [facility] Blood Venous blood specimen / Unknown Venipuncture / Unknown 10/12/2024 10:56 AM EDT 10/12/2024 10:59 AM EDT us Melisa Jeffers MD LAB BLOOD ORDERABLES Final Re sult Performing Organization Address [facility] Co de Phone Number [facility] [address] [place] [address] * Cyclic Citrul Peptide Antibody IgG (10/12/2024 10:56 AM EDT) Cyclic Citrul Peptide Antibody IgG <5.0 <=5.0 U/mL 10/12/2024 2:04 PM EDT [facility] Blood Venous blood specimen / Unknown Venipuncture / Unknown 10/12/2024 10:56 AM EDT 10/12/2024 10:59 AM EDT Melisa Jeffers MD LAB BLOOD ORDERABLES Final Re sult Performing Organization Address [facility] Co de Phone Number [facility] [address] [place] [address] * Double-Stranded DNA (dsDNA) Antibody, IgG by IFA (10/12/2024 10:56 AM EDT) Pathologist [facility] Double-Strande d DNA (dsDNA) Ab IgG IFA <1:10 <1:10 10/14/2024 11:43 PM EDT [facility] ([facility]) Blood Venous blood specimen / Unknown Venipuncture / Unknown 10/12/2024 10:56 AM EDT 10/12/2024 10:59 AM EDT Narrative [facility] ([facility]) - 10/14/2024 11:43 PM EDT INTERPRETIVE INFORMATION: [...] recommendations for testing may be found at https://[employer]/content/teajdwsgcg-eqcpyq-pftzrduz. Performed By: [facility] [address] [place] [id number] Registered Nurse Hh Case Manager: Arnoldo Butler MD, PhD CLIA Number: [id number] Melisa Jeffers MD LAB BLOOD ORDERABLES Final Re sult Performing Organization Address City/[facility]/ZIP Co de Phone Number [facility] ([facility]) [address] [place] [address] * Quantiferon TB Gold Plus (10/12/2024 10:56 AM EDT) Quantiferon TB Gold Plus Result Negative Negative 10/13/2024 5:02 PM EDT [facility] TB Nill Value 0.0414 IU/mL 10/13/2024 5:02 PM EDT [facility] TB Antigen 1 -0.0041 IU/mL 10/13/2024 5:02 PM EDT [facility] TB Antigen 2 0.0044 IU/mL 10/13/2024 5:02 PM EDT [facility] TB Mitogen 9.9586 IU/mL 10/13/2024 5:02 PM EDT [facility] Blood Venous blood specimen / Unknown Venipuncture / Unknown 10/12/2024 10:56 AM EDT 10/12/2024 10:59 AM EDT Narrative [facility] - 10/13/2024 5:02 PM EDT Responses to the Mitogen positive control and occasionally to TB antigen can be above the assay range. For calculation purposes: IFN-gamma values > 10 IU/mL are handled as 10 IU/mL. Melisa Jeffers MD LAB BLOOD ORDERABLES Final Re sult [facility] [address] [place] [address] * Hepatitis B Surface Antigen (10/12/2024 10:56 AM EDT) Pathologist [facility] Hepatitis B Surf Antigen Negative Negative 10/12/2024 12:18 PM EDT [facility] Blood Venous blood specimen / Unknown Venipuncture / Unknown 10/12/2024 10:56 AM EDT 10/12/2024 10:59 AM EDT Melisa Jeffers MD LAB BLOOD ORDERABLES Final Re sult [facility] [address] [place] [address] * Sedimentation Rate, Automated (10/12/2024 10:56 AM EDT) [facility] Sedimentation Rate 11 <20 mm/hr 2024 12:27 PM EDT [facility] Blood Venous blood specimen / Unknown Venipuncture / Unknown 10/12/2024 10:56 AM EDT 10/12/2024 10:59 AM EDT Melisa Jeffers MD LAB BLOOD ORDERABLES Final Re sult Performing Organization Address City/[facility]/ZIP Co de Phone Number [facility] [address] [place] [address] * (ABNORMAL) CBC and differential (10/12/2024 10:56 AM EDT) Pathologist [facility] WBC Count 11.01(H) 3.70 - 10.30 10*3/uL LAB HEMATOLOGY METHOD 10/12/2024 12:06 PM EDT [facility] RBC Count 4.35 3.90 - 5.20 10*6/uL LAB HEMATOLOGY METHOD 10/12/2024 12:06 PM EDT [facility] HGB 13.6 11.2 - 15.7 g/dL LAB HEMATOLOGY METHOD 10/12/2024 12:06 PM EDT [facility] HCT 41.8 34.0 - 45.0 % LAB HEMATOLOGY METHOD 10/12/2024 12:06 PM EDT [facility] Platelet Count 345 155 - 369 10*3/uL LAB HEMATOLOGY METHOD 10/12/2024 12:06 PM EDT [facility] MCV 96 79 - 98 fL LAB HEMATOLOGY METHOD 10/12/2024 12:06 PM EDT [facility] MCH 31.3 26.0 - 32.0 pg LAB HEMATOLOGY METHOD 10/12/2024 12:06 PM EDT [facility] MCHC 32.5 30.7 - 35.5 g/dL LAB HEMATOLOGY METHOD 10/12/2024 12:06 PM EDT [facility] RDW 12.6 11.5 - 14.5 % LAB HEMATOLOGY METHOD 10/12/2024 12:06 PM EDT [facility] MPV 10.0 8.8 - 12.5 fL LAB HEMATOLOGY METHOD 10/12/2024 12:06 PM EDT [facility] nRBC 0.0 <=0.0 per 100 WBCs LAB HEMATOLOGY METHOD 10/12/2024 12:06 PM EDT [facility] Differential Type Automated LAB HEMATOLOGY METHOD 10/12/2024 12:06 PM EDT [facility] Neutrophils % 57 % LAB HEMATOLOGY METHOD 10/12/2024 12:06 PM EDT [facility] Lymphocytes % 29 % LAB HEMATOLOGY METHOD 10/12/2024 12:06 PM EDT [facility] Monocytes % 11 % LAB HEMATOLOGY METHOD 10/12/2024 12:06 PM EDT [facility] Eosinophils % 1 % LAB HEMATOLOGY METHOD 10/12/2024 12:06 PM EDT [facility] Basophils % 1 % LAB HEMATOLOGY METHOD 10/12/2024 12:06 PM EDT [facility] Immature Granulocytes % 1 % LAB HEMATOLOGY METHOD 10/12/2024 12:06 PM EDT [facility] Neutrophils Absolute 6.47(H) 1.60 - 6.10 10*3/uL LAB HEMATOLOGY METHOD 10/12/2024 12:06 PM EDT [facility] Lymphocytes Absolute 3.14 1.20 - 3.90 10*3/uL LAB HEMATOLOGY METHOD 10/12/2024 12:06 PM EDT [facility] Monocytes Absolute 1.18(H) 0.30 - 0.90 10*3/uL LAB HEMATOLOGY METHOD 10/12/2024 12:06 PM EDT [facility] Eosinophils Absolute 0.07 0.00 - 0.50 10*3/uL LAB HEMATOLOGY METHOD 10/12/2024 12:06 PM EDT [facility] Basophils Absolute 0.07 0.00 - 0.10 10*3/uL LAB HEMATOLOGY METHOD 10/12/2024 12:06 PM EDT [facility] Immature Granulocytes Absolute 0.08(H) 0.00 - 0.06 10*3/uL LAB HEMATOLOGY METHOD 10/12/2024 12:06 PM EDT [facility] Blood Venous blood specimen / Unknown Venipuncture / Unknown 10/12/2024 10:56 AM EDT 10/12/2024 10:59 AM EDT Narrative [facility] - 10/12/2024 12:06 PM EDT Therapeutic decision making should be based on absolute values, rather than percentages. Melisa Jeffers MD LAB BLOOD ORDERABLES Final Re sult [facility] [address] [place] [address] * Rheumatoid Factor, Plasma (10/12/2024 10:56 AM EDT) Rheumatoid Factor, Plasma 11 <14 IU/mL 10/12/2024 12:15 PM EDT [facility] Blood Venous blood specimen / Unknown Venipuncture / Unknown 10/12/2024 10:56 AM EDT 10/12/2024 10:59 AM EDT Melisa Jeffers MD LAB BLOOD ORDERABLES Final Re sult [facility] [address] [place] [address] * C3 Complement (10/12/2024 10:56 AM EDT) C3 Complement 116 84 - 166 mg/dL 10/12/2024 12:14 PM EDT [facility] Blood Venous blood specimen / Unknown Venipuncture / Unknown 10/12/2024 10:56 AM EDT 10/12/2024 10:59 AM EDT Melisa Jeffers MD LAB BLOOD ORDERABLES Final Re sult Performing Organization Address [facility] Co de Phone Number [facility] [address] [place] [address] * C4 Complement (10/12/2024 10:56 AM EDT) C4 Complement 25 13 - 36 mg/dL 10/12/2024 12:14 PM EDT [facility] Blood Venous blood specimen / Unknown Venipuncture / Unknown 10/12/2024 10:56 AM EDT 10/12/2024 10:59 AM EDT Melisa Jeffers MD LAB BLOOD ORDERABLES Final Re sult Performing Organization Address [facility] Phone Number [facility] [address] [place] [address] * C-reactive protein (10/12/2024 10:56 AM EDT) CRP, Plasma <3.0 <=8.0 mg/L 10/12/2024 12:15 PM EDT [facility] Blood Venous blood specimen / Unknown Venipuncture / Unknown 10/12/2024 10:56 AM EDT 10/12/2024 10:59 AM EDT Narrative [facility] - 10/12/2024 12:15 PM EDT This CRP test is appropriate for assessment of infection, systemic inflammation and/or tissue injury. To assess cardiovascular disease risk order high sensitivity CRP (CRPH). Melisa Jeffers MD LAB BLOOD ORDERABLES Final Re sult Performing Organization Address [facility] Co de Phone Number [facility] [address] [place] [address] * ANTI NUCLEAR AB (10/12/2024 10:56 AM EDT) WARREN INTERPRETIVE COMMENT See Note 10/14/2024 11:39 PM EDT [facility] ([facility]) Anti Nuc Ab Screen <1:80 <1:80 10/14/2024 11:39 PM EDT [facility] ([facility]) Blood Venous blood specimen / Unknown Venipuncture / Unknown 10/12/2024 10:56 AM EDT 10/12/2024 10:59 AM EDT Narrative [facility] JAVI SEWELL) - 10/14/2024 11:39 PM EDT Antinuclear antibodies [...] not necessarily rule out SARD. Performed By: [facility] [address] [place] [id number] Registered Nurse Hh Case Manager: Arnoldo Butler MD, PhD CLIA Number: [id number] us Melisa Jeffers MD LAB BLOOD ORDERABLES Final Re sult [facility] [employer]) [address] [place] [address] * (ABNORMAL) Comprehensive metabolic panel (10/12/2024 10:56 AM EDT) [facility] Glucose, Plasma 77 74 - 99 mg/dL 10/12/2024 12:15 PM EDT [facility] BUN, Plasma 28(H) 7 - 21 mg/dL 10/12/2024 12:15 PM EDT [facility] Creatinine, Plasma 0.91 0.60 - 1.10 mg/dL 10/12/2024 12:15 PM EDT [facility] BUN/Creatinine Ratio 31 10/12/2024 12:15 PM EDT [facility] Sodium, Plasma 140 136 - 145 mmol/L 10/12/2024 12:15 PM EDT [facility] Potassium, Plasma 4.2 3.6 - 4.9 mmol/L 10/12/2024 12:15 PM EDT [facility] Chloride, Plasma 98 97 - 107 mmol/L 10/12/2024 12:15 PM EDT [facility] CO2, Plasma 29 22 - 29 mmol/L 10/12/2024 12:15 PM EDT [facility] Anion Gap 13 6 - 16 mmol/L 10/12/2024 12:15 PM EDT [facility] Total Calcium, Plasma 9.8 8.9 - 10.2 mg/dL 10/12/2024 12:15 PM EDT [facility] Total Protein 7.7 6.3 - 7.9 g/dL 10/12/2024 12:15 PM EDT [facility] Albumin, Plasma 4.8 3.5 - 5.2 g/dL 10/12/2024 12:15 PM EDT [facility] AST, Plasma 25 10 - 35 U/L 10/12/2024 12:15 PM EDT [facility] ALT, Plasma 24 10 - 35 U/L 10/12/2024 12:15 PM EDT [facility] Alkaline Phosphatase, Plasma 87 35 - 104 U/L 10/12/2024 12:15 PM EDT [facility] Total Bilirubin, Plasma 0.2 0.2 - 1.1 mg/dL 10/12/2024 12:15 PM EDT [facility] eGFRcr 78.0 mL/min/1.7 3m*2 10/12/2024 12:15 PM EDT [facility] Comment:Reported eGFRcr in m L/min/1.73m2 is based the CKD-EPI 2020 equation that does not use a race coefficient. Blood Venous blood specimen / Unknown Venipuncture / Unknown 10/12/2024 10:56 AM EDT 10/12/2024 10:59 AM EDT Melisa Jeffers MD LAB BLOOD ORDERABLES Final Re sult [facility] [address] [place] [address] from Last 3 Months Insurance MEDICARE [place]ICA[place] Care Teams Air Defense Specialist Relationship Specialty Start Date End Date Aime Atkinson MD [address] [facility] [address] [place] [address] PCP - General 08/03/20
== END 2024-10-17 23:59 | disposition home or self-care (01) ==
LOC: RAD 17:14
PROVIDERS: PCP Internal Medicine; Visit Provider Internal Medicine
DX: S81.802A Unspecified open wound, left lower leg, initial encounter (principal); L08.9 Local infection of the skin and subcutaneous tissue, unspecified
CPT/HCPCS: 73590

== ENCOUNTER 2024-10-25 12:45 | Outpatient (CLI) | payer MEDICARE, MEDICAID, SELFPAY ==
--- OUTSIDE RECORDS SUMMARY | 2024-10-04 20:30 | XMS_ITS | Encounter Summary ---
Author Organization [place] [address] Care Team Providers Care Sweeper Driver Name Role Phone Aime Atkinson MD Primary Care Provider [phone] Nel Levine MD Unavailable [phone] Reason for Visit * Reason Comments Extremity Laceration Left hernández Encounter Details Date Type Department Care Team (Late st Contact Info) Description 10/04/2024 8:30 PM EDT - 10/04/2024 10:09 PM EDT [facility] [address] [place] [address] Marck Ellis MD [address] [place] [address] Laceration of left lower extremity, initial encounter (Primary Dx); Chest pain, unspecified type; Nonintractable episodic headache, unspecified headache type Discharge Disposition: Home or Self Care Social History Tobacco Use Types Packs/Day Years Used Date Smoking Tobacco: Former Cigarettes 0.5 16.6 0 08/25/2007 - 03/23/2024 Smokeless Tobacco: Never Tobacco Cessation:Counseling Given: Not Answered Alcohol Use Standard Drinks/Week Comments No 0 (1 standard drink = 0.6 oz pur e alcohol) [facility] Utilities Answer Date Recorded In the past 12 months has th e electric, gas, oil, or water company threatened to shut off services in your home? No 10/16/2023 Overall Financial Resource Strain (CARDIA) Answe r Date Recorded How hard is it for you to pa y for the very basics like food, housing, medical care, and heating? Not very hard 10/16/2023 PHQ-2 Answer Date Recorded PHQ-2 Total Score 0 10/16/2023 [facility] - Occupational Stress Questionnaire Answer Date Recorded Do you feel stress - tense, restless, nervous, or anxious, or unable to sleep at night because your mind is troubled all the time - these days? Not at all 10/16/2023 Exercise Vital Sign Answer Date Recorde d On average, how many days pe r week do you engage in moderate to strenuous exercise (like a brisk walk)? 0 days 10/16/2023 On average, how many minutes do you engage in exercise at this level? 0 min 10/16/2023 Hunger Vital Sign Answer Date Recorded Within the past 12 months, y ou worried that your food would run out before you got the money to buy more. Never true 10/16/19 24 Within the past 12 months, t he food you bought just didn't last and you didn't have money to get more. Never true 10/16/2023 [facility] IP Transportation Answer D ate Recorded In the past 12 months, has l ack of reliable transportation kept you from medical appointments, meetings, work or from getting things needed for daily living? No 10/16/2023 Sexually Active Control Partners Comments Not Currently Male Comments No Sex and Gender Information Value Date Recorded Sex Assigned at Not on file Legal Sex Female 11:24 PM EDT Gender Identity Not on file Sexual Orientation Not on file documented as of this encounter Last Filed Vital Signs Vital Sign Reading Time Taken Comments Blood Pressure 123/63 10/04/2024 9:36 PM EDT Pulse 88 10/04/2024 10:00 PM EDT Temperature 36.7 C (98.1 F) 10/04/2024 9:00 PM EDT Respiratory Rate 12 10/04/2024 10:00 PM EDT Oxygen Saturation 97% 10/04/2024 10:00 PM EDT Inhaled Oxygen Concentration - - Weight 67.4 kg (148 lb 8 oz) 10/04/2024 8:41 PM EDT Height 157.5 cm (5' 2 ) 10/04/2024 8:41 PM EDT Body Mass Index 27.16 10/04/2024 8:41 PM EDT documented in this encounter Functional Status * Is the person deaf or does he/she have serious difficulty hearing? Answer Date of Assessment Author No 08/26/2019 3:12 PM EDT Arleen Bledsoe RN * Is the person blind or does he/she have serious difficulty seeing even when wearing glasses? Answer Date of Assessment Author No 08/26/2019 3:12 PM EDT Arleen Bledsoe RN * Does this person have serious difficulty walking or climbing stairs? Answer Date of Assessment Author No 08/26/2019 3:12 PM EDT Arleen Bledsoe RN * Does this person have difficulty dressing or bathing? Answer Date of Assessment Author No 08/26/2019 3:12 PM EDT Arleen Bledsoe RN * Because of a physical, mental or emotional condition, does this person have difficulty doing errands alone such as visiting a doctor's office or shopping? Answer Date of Assessment Author No 08/26/2019 3:12 PM EDT Arleen Bledsoe RN * Suicide Severity Rating Answer Date of Assessment Author No Risk 10/04/2024 8:28 PM EDT Jennifer Post RN * [place] Suicide Severity Rating Scale (Q shift for moderate and high) Question Answer Date of Assessment Author 1. In the past month, have y ou wished you were or wished you could go to sleep and not wake up? 0 10/04/2024 8:28 PM EDT Jennifer Bruce RN 2. In the past month, have y ou actually had any thoughts of killing yourself? (If no, skip to question 6) 0 10/04/2024 8:28 PM EDT Jennifer Bruce RN 6. Have you ever done anythi ng, started to do anything, or prepared to do anything to end your life? 0 10/04/2024 8:28 PM EDT Jennifer Bruce RN documented as of this encounter Mental Status * Because of a physical, mental or emotional condition, does this person have serious difficulty concentrating, remembering or making decisions? Answer Entry Date Author No 08/26/2019 3:12 PM EDT Fabi ro, Arleen Cadena RN documented in this encounter Discharge Instructions * Discharge Instructions* Gomez Bailey APRN - 10/04/2024 9:29 PM EDT Sutures will dissolve on their own, apply topical antibiotic ointment twice a day, follow-up with your primary care provider, return for new worsen concerns or symptoms. documented in this encounter Medications at Time of Discharge albuterol (PROVENTIL HFA;VENTOLIN HFA) 90 mcg/actuation Inhl HFA Aerosol Inhaler Inhale 2 Puffs into the lungs every 6 hours as needed for Wheezing or Shortness of Breath. AMPHET ASP/AMPHET/D-AMPH ET (ADDERALL ORAL) Take 20 mg by mouth 3 times daily. aspirin 81 mg Oral Tablet, Chewable Take 81 mg by mouth daily. azelastine (ASTELIN) 137 mcg (0.1 %) Nasl Aerosol, [place] 1 [place] in each nostril 2 times daily. Use in each nostril as directed bisoprolol (ZEBETA) 10 mg Oral Tablet Take 10 mg by mouth daily. CLONAZEPAM ORAL Take 2 mg by mouth nightly. cyclobenzaprine (FLEXERIL) 5 mg Oral Tablet Take 5 mg by mouth 3 times daily as needed for Muscle spasms. ESCITALOPRAM OXALATE (LEXAPRO ORAL) Take 30 mg by mouth daily. ESOMEPRAZOLE MAGNESIUM (NEXIUM ORAL) Take 40 mg by mouth daily. fluticasone (FLONASE) 50 mcg/actuation Nasl [place], Suspension 2 Sprays by Nasal route daily. folic acid (FOLVITE) 1 mg Oral Tablet Take 1 mg by mouth daily. fUROsemide (LASIX) 20 mg Oral Tablet Take 40 mg by mouth every 12 hours. HYDROCODONE BIT/ACETAMINOPHEN (HYDROCODONE-ACET AMINOPHEN ORAL) Take 10 mg by mouth 3 times daily. isosorbide mononitrate (IMDUR) 30 mg Oral Tablet Sustained Release 24 hr Take 1 Tablet by mouth daily. 30 Tablet 10/19/2023 2:48 PM EDT 10/20/2023 loratadine (CLARITIN) 10 mg Oral Tablet Take 10 mg by mouth daily. methylPREDNISolon e (MEDROL) 4 mg Oral Tablet Take 4 mg by mouth daily. take 3 tabs daily for pain MILNACIPRAN HCL (SAVELLA ORAL) Take 200 mg by mouth nightly. olopatadine (PATADAY) 0.2 % Opht Drops 1 Drop daily. rosuvastatin (CRESTOR) 5 mg Oral Tablet Take 10 mg by mouth daily. senna-docusate (SENOKOT-S) 8.6-50 mg Oral Tablet Take 2 Tablets by mouth nightly. spironolactone (ALDACTONE) 50 mg Oral Tablet Take 50 mg by mouth daily. documented as of this encounter Discharge Disposition Disposition Code Departure Means Destination Comment s Home or Self Group Home documented in this encounter ED Notes * Gomez Bailey, KARON - 10/04/2024 8:23 PM EDTAssociated Order(s): Laceration Repair Post-Procedure Diagnose(s): Laceration of left lower extremity, initial encounter Chief Complaint Patient presents with Extremity Laceration Left hernández Luis Frey is a 49-year-old female presenting with left hernández laceration. Past medical history includes CHF, CAD, difficulty with speech, history of CVA, chronic pain, fibromyalgia. Patient states she has been feeling unwell over the past few weeks or months, she states she got lightheaded today which caused her to strike her left hernández. She came up to earlier today around 4:00 after injury occurred and then she decided to go home and Steri-Strip it. She returns back today concerned that she may need stitches but she also describes intermittent headaches intermittent chest pain that goes up into her head, she states she has been stressed lately because her father a month ago and she is concerned that her heart is acting up again. She states she is compliant with her medications, she is not sure her current weight. She has been having worsening vision over the past 6 months. Patient History Allergies Allergen Reactions Cymbalta [Duloxetine] Nausea And Vomiting Paxil [Paroxetine Hcl] Nausea And Vomiting Home Medications: Prior to Admission medications Medication Sig Start Date End Date Last Dose Authorizing Provider albuterol (PROVENTIL HFA;VENTOLIN HFA) 90 mcg/actuation Inhl HFA Aerosol Inhaler Inhale 2 Puffs into the lungs every 6 hours as needed for Wheezing or Shortness of Breath. Taking Provider, Historical AMPHET ASP/AMPHET/D-AMPHET (ADDERALL ORAL) Take 20 mg by mouth 3 times daily. Taking Provider, Historical aspirin 81 mg Oral Tablet, Chewable Take 81 mg by mouth daily. Taking Provider, Historical azelastine (ASTELIN) 137 mcg (0.1 %) Nasl Aerosol, [place] 1 [place] in each nostril 2 times daily. Usein each nostril as directed Taking Provider, Historical CLONAZEPAM ORAL Take 2 mg by mouth nightly. Taking Provider, Historical cyclobenzaprine (FLEXERIL) 5 mg Oral Tablet Take 5 mg by mouth 3 times daily as needed for Muscle spasms. Taking Provider, Historical ESCITALOPRAM OXALATE (LEXAPRO ORAL) Take 30 mg by mouth daily. Taking Provider, Historical ESOMEPRAZOLE MAGNESIUM (NEXIUM ORAL) Take 40 mg by mouth daily. Taking Provider, Historical fluticasone (FLONASE) 50 mcg/actuation Nasl [place], Suspension 2 Sprays by Nasal route daily. TakingProvider, Historical folic acid (FOLVITE) 1 mg Oral Tablet Take 1 mg by mouth daily. Taking Provider, Historical fUROsemide (LASIX) 20 mg Oral Tablet Take 40 mg by mouth every 12 hours. Taking Provider, Historical HYDROCODONE BIT/ACETAMINOPHEN (HYDROCODONE-ACETAMINOPHEN ORAL) Take 10 mg by mouth 3 times daily. Taking Provider, Historical isosorbide mononitrate (IMDUR) 30 mg Oral Tablet Sustained Release 24 hr Take 1 Tablet by mouth daily. 10/20/23 Taking Ritesh Perez MD loratadine (CLARITIN) 10 mg Oral Tablet Take 10 mg by mouth daily. Taking Provider, Historical MILNACIPRAN HCL (SAVELLA ORAL) Take 200 mg by mouth nightly. Taking Provider, Historical olopatadine (PATADAY) 0.2 % Opht Drops 1 Drop daily. Taking Provider, Historical rosuvastatin (CRESTOR) 5 mg Oral Tablet Take 10 mg by mouth daily. Taking Provider, Historical senna-docusate (SENOKOT-S) 8.6-50 mg Oral Tablet Take 2 Tablets by mouth nightly. Taking Provider, Historical spironolactone (ALDACTONE) 50 mg Oral Tablet Take 50 mg by mouth daily. Taking Provider, Historical bisoprolol (ZEBETA) 10 mg Oral Tablet Take 10 mg by mouth daily. Patient not taking: Reported on 12/02/2023 Not Taking Provider, Historical methylPREDNISolone (MEDROL) 4 mg Oral Tablet Take 4 mg by mouth daily. take 3 tabs daily for pain Provider, Historical Past Medical History: Past Medical History: Diagnosis Date Anxiety Arthritis rheumatoid CAD (coronary artery disease) CHF (congestive heart failure) ([facility]) Chronic pain Depression Fibromyalgia Hypertension PAD (peripheral artery disease) RA (rheumatoid arthritis) ([facility]) Social History: reports that she quit smoking about 6 months ago. Her smoking use included cigarettes. She started smoking about 17 years ago. She has a 8.3 pack-year smoking history. She has never used smokeless tobacco. She reports that she is not currently sexually active and has had partner(s) who are male. She reports that she does not drink alcohol and does not use drugs. E-Cigarettes (such as Vapes or Juul) E-Cigarette Use Current Every Day User Family History: Family History Problem Relation Age of Onset Osteoporosis Mother Rheumatologic Disease Mother Rheum Arthritis Mother Emphysema Father Heart Disease Father Diabetes Father Other Father gout Diabetes Paternal Uncle Rheum Arthritis Sister Rheum Arthritis Sister Surgical History: Past Surgical History: Procedure Laterality Date SECTION HYSTERECTOMY Review of Systems Review of Systems Constitutional: Negative for chills and fever. HENT: Negative. Eyes: Negative. Respiratory: Negative for cough and shortness of breath. Cardiovascular: Positive for chest pain. Negative for palpitations and leg swelling. Gastrointestinal: Negative for abdominal pain, diarrhea, nausea and vomiting. Genitourinary: Negative for dysuria and frequency. Musculoskeletal: Negative. Skin: Positive for wound. Negative for rash. Neurological: Positive for light-headedness and headaches. Psychiatric/Behavioral: Negative. All other systems reviewed and are negative. Physical Exam Blood pressure 133/56, pulse 90, temperature 98.1 ??F (36.7 ??C), temperature source Oral, resp. rate 20, height 5' 2 (1.575 m), weight 148 lb 8 oz (67.4 kg), last menstrual period 02/06/2014, SpO2 99%. Physical Exam Vitals and nursing note reviewed. Constitutional: General: She is not in acute distress. Appearance: She is well-developed. She is not ill-appearing, toxic-appearing or diaphoretic. Comments: Appears depressed Eyes: Conjunctiva/sclera: Conjunctivae normal. Pupils: Pupils are equal, round, and reactive to light. Cardiovascular: Rate and Rhythm: Normal rate and regular rhythm. Heart sounds: No murmur heard. No friction rub. No gallop. Pulmonary: Effort: Pulmonary effort is normal. Breath sounds: Normal breath sounds. Abdominal: General: Bowel sounds are normal. There is no distension. Palpations: Abdomen is soft. Tenderness: There is no abdominal tenderness. Musculoskeletal: Cervical back: Normal range of motion and neck supple. Lymphadenopathy: Cervical: No cervical adenopathy. Skin: General: Skin is warm and dry. Findings: No rash. Comments: Strong pedal pulses, normal cap refill, legs are not cyanotic. Warm to touch Neurological: Mental Status: She is alert and oriented to person, place, and time. Laceration Repair Date/Time: 10/04/2024 9:52 PM Performed by: Gomez Bailey APRN Authorized by: Gomez Bailey APRN Consent: Consent obtained: Verbal Consent given by: Patient Risks discussed: Infection, poor cosmetic result and poor wound healing [place] protocol: Patient identity confirmed: Verbally with patient Anesthesia: Anesthesia method: Topical application Topical anesthetic: LET Laceration details: Location: Leg Leg location: L lower leg Length (cm): 0.5 Depth (mm): 1 Pre-procedure details: Preparation: Patient was prepped and draped in usual sterile fashion Treatment: Area cleansed with: Saline and Shur-Clens Amount of cleaning: Standard Irrigation solution: Sterile saline Irrigation volume: 50 Irrigation method: Pressure wash Debridement: None Undermining: None Skin repair: Repair method: Sutures Suture material: Plain gut Suture technique: Horizontal mattress Number of sutures: 1 Approximation: Approximation: Close Repair type: Repair type: Simple Post-procedure details: Dressing: Antibiotic ointment and adhesive bandage Procedure completion: Tolerated well, no immediate complications Radiology/EKG/Labs: Results for orders placed or performed during the hospital encounter of 10/04/24 XR CHEST AP PORTABLE Narrative XR CHEST AP PORTABLE, 10/04/2024 8:59 PM CLINICAL HISTORY: -chest pain COMPARISON: 11/23/2023 PROCEDURE COMMENTS: AP portable technique. FINDINGS: Support devices: No visible support devices. Heart and mediastinal contours within normal limits for technique. No active failure, pneumonia, or visible effusion. No visible pneumothorax. Impression No acute finding. - Note: Radiology results need to be interpreted within a comprehensive clinical context. If you have questions about the radiology report, please contact the office of the ordering clinician. CBC WITH DIFF Result Value Ref Range WBC 11.4 (H) 3.7 - 10.3 x10(3)/mcL RBC 4.16 3.90 - 5.20 x10(6)/mcL Hgb 13.0 11.2 - 15.7 g/dL Hct 40.5 34.0 - 45.0 % MCV 97.4 80.0 - 100.0 fL MCH 31.3 26.0 - 34.0 pg MCHC 32.1 30.7 - 35.5 g/dL RDW 12.7 <=14.9 % Platelet 314 155 - 369 x10(3)/mcL MPV 9.3 8.8 - 12.5 fL Neut Percent 66.5 % Imm Gran% 0.4 % Lymph Percent 23.2 % [place] Percent 8.8 % Eos Percent 0.9 % Baso Percent 0.2 % Neut # 7.6 (H) 1.6 - 6.1 x10(3)/mcL IMMGRAN# 0.0 0.0 - 0.1 x10(3)/mcL Lymph # 2.7 1.2 - 3.9 x10(3)/mcL [place] # 1.0 (H) 0.3 - 0.9 x10(3)/mcL Eos# 0.1 0.0 - 0.5 x10(3)/mcL Baso # 0.0 0.0 - 0.1 x10(3)/mcL BASIC METABOLIC PANEL Result Value Ref Range Sodium 138 136 - 145 mmol/L Potassium 3.5 3.5 - 5.0 mmol/L Chloride 102 98 - 107 mmol/L Total CO2 25 22 - 29 mmol/L Anion Gap 11 7 - 16 mmol/L Calcium 9.1 8.6 - 10.4 mg/dL Glucose Lvl 70 70 - 99 mg/dL BUN 15 6 - 20 mg/dL Creatinine 0.99 0.51 - 1.30 mg/dL eGFR (CKD-EPIcr 2020) 70 >=60 mL/min/1.73 m2 TROPONIN-T HIGH SENSITIVITY BASELINE W/ REFLEX Result Value Ref Range ea-yBtoctypr-B 9 <14 ng/L Narrative Ingestion of radha doses of biotin (>5 mg/day) taken within 8 hours of drawing blood sample can interfere with this immunoassay test. NT PROBNP Result Value Ref Range NT Pro-BNP 477 (H) <=192 pg/mL Narrative An NT pro-BNP level less than 300 pg/mL in any patient, regardless of age, effectively rules out acute CHF with a 99% negative predictive value. Ingestion of rdaha doses of biotin (>5 mg/day) taken within 8 hours of drawing blood sample can interfere with this immunoassay test. GLUCOSE METER POC Result Value Ref Range Glucose Meter POC 89 70 - 100 mg/dL Sample Type Capillary Patient Status Non-Critical Patient EK EKG 12 LEAD Narrative NOTICE: Preliminary tracing available for review; Final Interpretation by physician to follow. Impression [facility] Test Date: 2024-10-04 Pat Name: LUIS FREY Department: DE[facility] Room: 11 Gender: Female Professor Of Psychiatry: Yasmin : 1975 Requested By: GOMEZ Ron Order Number: [id number] Reading MD: Measurements Intervals [place] Rate: 89 P: 57 NV: 156 QRS: 12 QRSD: 87 T: 52 QT: 362 QTc: 442 Interpretive Statements SINUS RHYTHM ED Course: Appropriate laboratory and radiology studies reviewed EK EKG 12 LEAD ED Interpretation by Marck Ellis MD (10/04 2057) EKG shows a sinus rhythm with a rate of 89. QTc interval is 409. No acute ischemic changes by my interpretation. ED Clinical Impression: 1. Laceration of left lower extremity, initial encounter 2. Chest pain, unspecified type 3. Nonintractable episodic headache, unspecified headache type MDM Medical Decision Making Patient presented for an acute but also several other concerns, states she struck her hernández as a tackle box today when she was lightheaded, she also endorses several other problems such as intermittent headaches, intermittent chest pain feeling lightheaded and having blurred vision for 6 months. She appears depressed she states she is taking her medicines she does not appear fluid overloaded she has clear lung sounds she does have 3 small superficial lacerations that overall are relatively well approximated with soft tissue contusion but compartment is soft. She is strong pedal pulses. Somewhat odd affect occasionally stuttering words but does have a history of CVA. When asked if she would have come in for other conditions if she had not cut her leg she states while I came here earlier today after I cut my leg but then I decided to go home but now I am back. Overall symptoms nonspecific she does have a cardiac history although had a normal echo's a year ago. Will obtain a cardiac workup I will apply let gel to the hernández although I do not feel that she will require any significant repair maybe a single stitch but will obtain cardiac workup. Initial EKG interpretation by Dr. Ellis negative for acute ischemic changes, CBC stable BMP unremarkable, chest x-ray negative for failure or other acute finding. Long discussion with patient regarding her multiple nonspecific complaints, I asked if there was anything else that was going on with her and she states I am just tired. Instructed that we will obtain the troponin and BNP results if negative it would be best for her to follow-up with her primary care provider and will address her hernández wound after let show is unclear if she will actually require any suturing but will least need cleaning and dressed. Her tetanus is up-to-date. Troponin negative BNP mildly elevated 477 but chest x-ray without evidence of heart failure and shedoes not appear fluid overloaded. Single horizontal mattress suture was placed overall wound very superficial, dressed with Polysporin, absorbable suture, advised to follow-up with a primary care provider patient agreeable no furtherquestions. Patient verbalized understanding of discharge drug and plan of care. Condition at Discharge/Transfer from Department: Stable This chart was completed using voice recognition technology and may contain unintended errors Gomez Bailey APRN [id number] Gomez Bailey APRN [id number] Cosigned by Marck Ellis MD at 10/04/2024 10:06 PM EDT Associated attestation - Marck Ellis MD - 10/04/2024 10:06 PM EDT Attending Dental Instructor Note: I have participated in the care of this patient and have reviewed the pertinent clinical information including physical exam findings, labs, and radiographic studies. I have reviewed and/or discussedthe plan of care, of which I personally approve and take responsibility for the patient management. This patient was seen in coordination with the PA/SCOOP MACHINE OPERATOR. We discussed the management plan and testing results for this patient and I performed a substantive portion of the medical decision making. EK EKG 12 LEAD ED Interpretation by Marck Ellis MD (10/04 2057) EKG shows a sinus rhythm with a rate of 89. QTc interval is 409. No acute ischemic changes by my interpretation. Marck Ellis MD This chart was completed using voice recognition technology and may contain unintended errors documented in this encounter Plan of Treatment Not on file documented as of this encounter Procedures Procedure Name Priority Date/Time Associated Diagnosis Comments SCANNED EKG 10/06/2024 8:41 AM EDT ED LACERATION REPAIR Routine 10/04/2024 9:52 PM EDT Laceration of left lower extremity, initial encounter XR CHEST AP PORTABLE STAT 10/04/2024 8:59 PM EDT TROPONIN-T HIGH SENSITIVITY BASELINE W/ REFLEX STAT 10/04/2024 8:51 PM EDT CBC WITH DIFF STAT 10/04/2024 8:51 PM EDT NT PROBNP STAT 10/04/2024 8:51 PM EDT BASIC METABOLIC PANEL STAT 10/04/2024 8:51 PM EDT EK EKG 12 LEAD STAT 10/04/2024 8:46 PM EDT SALINE LOCK IV STAT 10/04/2024 8:46 PM EDT GLUCOSE METER POC Routine 10/04/2024 8:4 6 PM EDT documented in this encounter Results * SCANNED EKG (10/06/2024 8:41 AM EDT) Anatomical Region Laterality Modality Other 10/06/2024 8:41 AM EDT us Unknown Provider IMG ECG ORDERABLES Final Result * Laceration Repair (10/04/2024 9:52 PM EDT) Narrative [facility] - 10/04/2024 9:52 PM EDT Marck Ellis MD 10/04/2024 10:06 PM Laceration Repair Date/Time: 10/04/2024 9:52 PM Performed by: Gomez Bailey APRN Authorized by: Gomez Bailey APRN Consent: Consent obtained: Verbal Consent given by: Patient Risks discussed: Infection, poor cosmetic result and poor wound healing [place] protocol: Patient identity confirmed: Verbally with patient Anesthesia: Anesthesia method: Topical application Topical anesthetic: LET Laceration details: Location: Leg Leg location: L lower leg Length (cm): 0.5 Depth (mm): 1 Pre-procedure details: Preparation: Patient was prepped and draped in usual sterile fashion Treatment: Area cleansed with: Saline and Shur-Clens Amount of cleaning: Standard Irrigation solution: Sterile saline Irrigation volume: 50 Irrigation method: Pressure wash Debridement: None Undermining: None Skin repair: Repair method: Sutures Suture material: Plain gut Suture technique: Horizontal mattress Number of sutures: 1 Approximation: Approximation: Close Repair type: Repair type: Simple Post-procedure details: Dressing: Antibiotic ointment and adhesive bandage Procedure completion: Tolerated well, no immediate complications us Gomez Bailey APRN PROCEDURE/MINOR SURGICAL O RDERABLES Final Result [facility] [address] [place] [address] * XR CHEST AP PORTABLE (10/04/2024 8:59 PM EDT) Anatomical Region Laterality Modality Chest Radiographic Jannie ging 10/04/2024 8:59 PM EDT Impressions 10/04/2024 9:05 PM EDT No acute finding. - Note: Radiology results need to be interpreted within a comprehensive clinical context. If you have questions about the radiology report, please contact the office of the ordering clinician. Narrative 10/04/2024 9:05 PM EDT XR CHEST AP PORTABLE, 10/04/2024 8:59 PM CLINICAL HISTORY: -chest pain COMPARISON: 11/23/2023 PROCEDURE COMMENTS: AP portable technique. FINDINGS: Support devices: No visible support devices. Heart and mediastinal contours within normal limits for technique. No active failure, pneumonia, or visible effusion. No visible pneumothorax. Procedure Note Joshua Cifuentes MD - 10/04/2024 XR CHEST AP PORTABLE, 10/04/2024 8:59 PM CLINICAL HISTORY: -chest pain COMPARISON: 11/23/2023 PROCEDURE COMMENTS: AP portable technique. FINDINGS: Support devices: No visible support devices. Heart and mediastinal contours within normal limits for technique. Noactive failure, pneumonia, or visible effusion. No visible pneumothorax. IMPRESSION: No acute finding. - Note: Radiology results need to be interpreted within a comprehensiveclinical context. If you have questions about the radiology report, please contactthe office of the ordering clinician. Gomez Bailey APRN IMG DIAGNOSTIC IMAGING ORD ERABLES Final Result * (ABNORMAL) NT PROBNP (10/04/2024 8:51 PM EDT) NT Pro-BNP 477(H) <=192 pg/mL 10/04/2024 9:26 PM EDT [facility] Blood VENOUS BLOOD / Unknown Venipuncture / Unknown 10/04/2024 8:51 PM EDT 10/04/2024 8:55 PM EDT Narrative [facility] - 10/04/2024 9:26 PM EDT An NT pro-BNP level less than 300 pg/mL in any patient, regardless of age, effectively rules out acute CHF with a 99% negative predictive value. Ingestion of radha doses of biotin (>5 mg/day) taken within 8 hours of drawing blood sample can interfere with this immunoassay test. Gomez Bailey APRN CHEMISTRY ORDERABLES Final Result Performing Organization Address [facility] Co de Phone Number [facility] [address] [place] [address] * TROPONIN-T HIGH SENSITIVITY BASELINE W/ REFLEX (10/04/2024 8:51 PM EDT) [id number] 9 <14 ng/L 10/04/2024 9:26 PM EDT [facility] Blood VENOUS BLOOD / Unknown Venipuncture / Unknown 10/04/2024 8:51 PM EDT 10/04/2024 8:55 PM EDT Narrative [facility] - 10/04/2024 9:26 PM EDT Ingestion of radha doses of biotin (>5 mg/day) taken within 8 hours of drawing blood sample can interfere with this immunoassay test. Gomez Bailey CUSTOMER MARKETING MANAGER CHEMISTRY ORDERABLES Final Result Performing Organization Address [facility] de Phone Number [facility] [address] [place] [address] * BASIC METABOLIC PANEL (10/04/2024 8:51 PM EDT) Sodium 138 136 - 145 mmol/L 10/04/2024 9:16 PM EDT [facility] Potassium 3.5 3.5 - 5.0 mmol/L 10/04/2024 9:16 PM EDT [facility] Chloride 102 98 - 107 mmol/L 10/04/2024 9:16 PM EDT [facility] Total CO2 25 22 - 29 mmol/L 10/04/2024 9:16 PM EDT [facility] Anion Gap 11 7 - 16 mmol/L 10/04/2024 9:16 PM EDT [facility] Calcium 9.1 8.6 - 10.4 mg/dL 10/04/2024 9:16 PM EDT [facility] Glucose Lvl 70 70 - 99 mg/dL 10/04/2024 9:16 PM EDT [facility] BUN 15 6 - 20 mg/dL 10/04/2024 9:16 PM EDT [facility] Creatinine 0.99 0.51 - 1.30 mg/dL 10/04/2024 9:16 PM EDT [facility] eGFR (CKD-EPIcr 2020) 70 >=60 mL/min/1.7 3 m2 10/04/2024 9:16 PM EDT [facility] Comment:Estimated GFR was ca lculated using the CKD-EPIcr (2020) equation refit without race. The equation is recommended by the [employer] - [place] [employer]ph[employer] Task Force. Blood VENOUS BLOOD / Unknown Venipuncture / Unknown 10/04/2024 8:51 PM EDT 10/04/2024 8:55 PM EDT us Gomez Bailey CUSTOMER MARKETING MANAGER CHEMISTRY ORDERABLES Final Result Performing Organization Address City/State/[facility] Co de Phone Number [facility] [address], [place] [id number] * (ABNORMAL) CBC WITH DIFF (10/04/2024 8:51 PM EDT) WBC 11.4(H) 3.7 - 10.3 x10(3)/mcL 10/04/2024 8:58 PM EDT [facility] RBC 4.16 3.90 - 5.20 x10(6)/mcL 10/04/2024 8:58 PM EDT [facility] Hgb 13.0 11.2 - 15.7 g/dL 10/04/2024 8:58 PM EDT [facility] Hct 40.5 34.0 - 45.0 % 10/04/2024 8:58 PM EDT [facility] MCV 97.4 80.0 - 100.0 fL 10/04/2024 8:58 PM EDT [facility] MCH 31.3 26.0 - 34.0 pg 10/04/2024 8:58 PM EDT [facility] MCHC 32.1 30.7 - 35.5 g/dL 10/04/2024 8:58 PM EDT [facility] RDW 12.7 <=14.9 % 10/04/2024 8:58 PM [facility] Platelet 314 155 - 369 x10(3)/[facility] 10/04/2024 8:58 PM [facility] MPV 9.3 8.8 - 12.5 fL 10/04/2024 8:58 PM [facility] Neut Percent 66.5 % 10/04/2024 8:58 PM [facility] Comment:Neutrophils equals s egs plus bands Imm Gran% 0.4 % 10/04/2024 8:58 PM [facility] Comment:Automated count of m etamyelocytes, myelocytes and promyelocytes. Lymph Percent 23.2 % 10/04/2024 8:58 PM [facility] [place] Percent 8.8 % 10/04/2024 8:58 PM [facility] Eos Percent 0.9 % 10/04/2024 8:58 PM [facility] Baso Percent 0.2 % 10/04/2024 8:58 PM [facility] Neut # 7.6(H) 1.6 - 6.1 x10(3)/[facility] 10/04/2024 8:58 PM [facility] Comment:Neutrophils equals s egs plus bands IMMGRAN# 0.0 0.0 - 0.1 x10(3)/[facility] 10/04/2024 8:58 PM [facility] Comment:Automated count of m etamyelocytes, myelocytes and promyelocytes. An absolute IG <0.1 is reported as 0.0. Lymph # 2.7 1.2 - 3.9 x10(3)/[facility] 10/04/2024 8:58 PM [facility] [place] # 1.0(H) 0.3 - 0.9 x10(3)/[facility] 10/04/2024 8:58 PM [facility] Eos# 0.1 0.0 - 0.5 x10(3)/[facility] 10/04/2024 8:58 PM [facility] Baso # 0.0 0.0 - 0.1 x10(3)/[facility] 10/04/2024 8:58 PM [facility] Blood VENOUS BLOOD / Unknown Venipuncture / Unknown 10/04/2024 8:51 PM EDT 10/04/2024 8:55 PM EDT us Gomez Bailey APRN HEMATOLOGY ORDERABLES Makayla l Result [facility] [address] [place] [address] * EK EKG 12 LEAD (10/04/2024 8:46 PM EDT) Anatomical Region Laterality Modality Electrocardiogra phy 10/04/2024 8:56 PM EDT Impressions 10/04/2024 10:17 PM EDT [facility] Test Date: 2024-10-04 Pat Name: LUIS FREY Department: DEPID Room: 11 Gender: Female Professor Of Psychiatry: : 1975 Requested By: GOMEZ Ron Order Number: [id number] Reading MD: Reji Kay Measurements Intervals [place] Rate: 89 P: 57 NV: 156 QRS: 12 QRSD: 87 T: 52 QT: 362 QTc: 442 Interpretive Statements SINUS RHYTHM Electronically Signed On 10-04-2024 22:17:12 EDT by Reji Kay Narrative Procedure Note Reji Kay MD - 10/04/2024 IMPRESSION [facility] Test Date: 2024-10-04 Pat Name: LUIS ALEJO Department: DEPID Room: 11 Gender: Female Professor Of Psychiatry: Ts : 1975 Requested By: GOMEZ Ron Order Number: [id number] Reading : Reji Kay Measurements Intervals [place] Rate: 89 P: 57 NV: 156 QRS: 12 QRSD: 87 T: 52 QT: 362 QTc: 442 Interpretive Statements SINUS RHYTHM Electronically Signed On 10-04-2024 22:17:12 EDT by Reji Kay us Gomez Bailey APRN IMG ECG ORDERABLES Final R esult * GLUCOSE METER POC (10/04/2024 8:46 PM EDT) [facility] Signature Glucose Meter POC 89 70 - 100 mg/dL 10/04/2024 8:48 PM EDT [facility] Sample Type Capillary 10/04/2024 8:48 PM EDT [facility] Patient Status Non-Critical Patient 10/04/2024 8:48 PM EDT [facility] Blood BLOOD SPECIMEN / Unknown 10/04/2024 8:46 PM EDT 10/04/2024 8:48 PM EDT Marck Ellis MD POINT OF CARE TEST ORDERABLES F inal Result [facility] [address] [place], [place] [phone] documented in this encounter Visit Diagnoses Diagnosis Laceration of left lower extremity, initial encounter- Primary Chest pain, unspecified type Nonintractable episodic headache, unspecified headache type documented in this encounter Administered Medications Inactive Administered Medications - up to 1 most recent administrations Medication Order MAR Action Action Date Dose Rate Site acetaminophen (TYLENOL) tablet 650 mg 650 mg, Oral, ONCE, 1 dose, On Thu10/04/24 at 2100, Maximum adult dose of acetaminophen is 4000 mg from all sources in 24 hours. Given 10/04/2024 8:58 PM EDT 650 mg LET Topical Gel syringe Topical, ONCE, 1 dose, On Thu10/04/24 at 2100 Given 10/04/2024 8:58 PM EDT sodium chloride 0.9% IV line flush 50 mL 50 mL, Intravenous, at 999 mL/hr, PRN, Starting on Thu10/04/24 at 2044, Until Thu10/05/24 at 0209, Line Care, Flush with 50 mL after IVPB to insure complete administration of the dose. May use the saline infusion to back flush IVPB tubing as needed., Use this order to document priming and flushing IV line after medication administration. sodium chloride 0.9% syringe 5-10 mL 5-10 mL, Intravenous, PRN, Starting on Thu10/04/24 at 2044, Until Thu10/05/24 at 0209, Line Care, Flush with 5 mL saline pre/post IVP, and 5 mL prior to IVPB or blood product administration. Protocol for PERIPHERAL IV saline lock maintenance, flush with 3-5 mL saline syringe every 8 hours., Flush peripheral lines every 12 hours, central lines every 8 hours, and after IV medication documented in this encounter Active and Recently Administered Medications Times are shown in EDT. Scheduled Medication Order 10/02/2024 10/03/2024 10/04/2024 acetaminophen (TYLENOL) tablet 650 mg (COMPLETED) 650 mg, Oral, ONCE, 1 dose, On Thu10/04/24 at 2100, Maximum adult dose of acetaminophen is 4000 mg from all sources in 24 hours. 2057 (Given - Provid er: Elisabeth Smith RN) LET Topical Gel syringe (COMPLETED) Topical, ONCE, 1 dose, On Thu10/04/24 at 2099 2057 (Given - Provid er: Elisabeth Smith RN) PRN Medication Order 10/02/2024 10/03/2024 10/04/2024 sodium chloride 0.9% IV line flush 50 mL 50 mL, Intravenous, at 999 mL/hr, PRN, Starting on Thu10/04/24 at 2044, Until Thu10/05/24 at 020, Line Care, Flush with 50 mL after IVPB to insure complete administration of the dose. May use the saline infusion to back flush IVPB tubing as needed., Use this order to document priming and flushing IV line after medication administration. sodium chloride 0.9% syringe 5-10 mL 5-10 mL, Intravenous, PRN, Starting on Thu10/04/24 at 2044, Until Thu10/05/24 at 0209, Line Care, Flush with 5 mL saline pre/post IVP, and 5 mL prior to IVPB or blood product administration. Protocol for PERIPHERAL IV saline lock maintenance, flush with 3-5 mL saline syringe every 8 hours., Flush peripheral lines every 12 hours, central lines every 8 hours, and after IV medication documented in this encounter Orders Medications Ordered That Yoshi ht Not Have Been Administered Count Last Ordered Date First Ordered Date sodium chloride 0.9% IV line flush 50 mL 10/04/2024 sodium chloride 0.9% syringe 5-10 mL 1 07/1 07/2024 IV Count Last Ordered Date First Orde red Date SALINE LOCK IV 1 10/04/2024 documented in this encounter Care Teams Sweeper Driver Relationship Specialty Start Date End Date Aime Atkinson MD [address] [facility] [id number] [place] [id number] PCP - General Internal Medicine 04/29/16 Nel Levine MD [address] [address] Physician Internal Medicine-Rheumatology 10/08/16 documented as of this encounter
--- OUTSIDE RECORDS SUMMARY | 2024-10-26 10:25 | XMS_ITS | Clinical Summary ---
Author Organization [facility] Address [address] [place] [address] Phone Care Team Providers Care Acid Adjuster Name Role Phone Aime Atkinson MD Primary Care Provider [phone] Nel Levine MD Unavailable [phone] Allergies Active Allergy Reactions Criticality Noted Date [...] nightly. Active fluticasone (FLONASE) 50 mcg/actuation Nasl Sayre, Suspension 2 Sprays by Nasal route daily. Active azelastine (ASTELIN) 137 mcg (0.1 %) Nasl Aerosol, Sayre 1 Sayre in each nostril 2 times daily. Use [...] infection 08/24/2019 Coronary artery disease invo lving [place] coronary artery of [place] heart with unstable angina pectoris 08/24/2019 Difficulty with speech Encounters Date Type Department Care Team Description 10/04/2024 8:30 PM EDT - 10/04/2024 10:09 PM EDT [facility] [address] [place] [address] Marck Ellis MD Laceration of left lower [...] drink = 0.6 oz pur e alcohol) [facility] Utilities Answer Date Recorded In the past 12 months has [employer], gas, oil, or water Join [facility] threatened to shut off services in your home? No 10/16/2023 Overall Financial Resource Strain (CARDIA) Answe r Date Recorded How hard is it for you to pa y for the very basics like food, housing, medical care, and heating? Not very hard 10/16/2023 PHQ-2 Answer Date Recorded PHQ-2 Total Score 0 10/16/2023 [facility] of Occupat ional Health - Occupational Stress [...] money to get more. Never true 10/16/2023 [facility] IP Transportation Answer D ate Recorded In [...] Laceration Repair (10/04/2024 9:52 PM EDT) Narrative [facility] - 10/04/2024 9:52 PM EDT Marck Ellis MD 10/04/2024 10:06 PM Laceration Repair Date/Time: 10/04/2024 9:52 PM Performed by: Gomez Bailey APRN Authorized by: Gomez Bailey APRN Consent: Consent obtained: Verbal Consent given by: Patient Risks discussed: Infection, poor cosmetic result and poor wound healing Plain protocol: Patient identity confirmed: Verbally with patient [...] APRN PROCEDURE/MINOR SURGICAL O RDERABLES Final Result [facility] [address] [place] [address] * XR CHEST AP PORTABLE (10/04/2024 8:59 [...] BASELINE W/ REFLEX (10/04/2024 8:51 PM EDT) [facility] xh-aOvfzptqy-H 9 <14 ng/L 10/04/2024 9:26 PM EDT [facility] Blood VENOUS BLOOD / Unknown Venipuncture / Unknown 10/04/2024 8:51 PM EDT 10/04/2024 8:55 PM EDT Narrative [facility] - 10/04/2024 9:26 PM EDT Ingestion of radha doses of biotin (>5 mg/day) taken within 8 hours of drawing blood sample can interfere with this immunoassay test. Gomez Bailey APRN CHEMISTRY ORDERABLES Final Result [facility] [address] [place] [address] * (ABNORMAL) CBC WITH DIFF (10/04/2024 8:51 PM EDT) WBC 11.4(H) 3.7 - 10.3 x10(3)/mcL 10/04/2024 8:58 PM EDT [facility] RBC 4.16 3.90 - 5.20 x10(6)/[facility] 10/04/2024 8:58 PM EDT [facility] Hgb 13.0 11.2 - 15.7 g/dL 10/04/2024 8:58 PM EDT [facility] Hct 40.5 34.0 - 45.0 % 10/04/2024 8:58 PM EDT [facility] MCV 97.4 80.0 - 100.0 fL 10/04/2024 8:58 PM EDT [facility] MCH 31.3 26.0 - 34.0 pg 10/04/2024 8:58 PM EDT [facility] MCHC 32.1 30.7 - 35.5 g/dL 10/04/2024 8:58 PM EDT [facility] RDW 12.7 <=14.9 % 10/04/2024 8:58 PM EDT [facility] Platelet 314 155 - 369 x10(3)/[facility] 10/04/2024 8:58 PM EDT [facility] MPV 9.3 8.8 - 12.5 fL 10/04/2024 8:58 PM EDT [facility] Neut Percent 66.5 % 10/04/2024 8:58 PM EDT [facility] Comment:Neutrophils equals s egs plus bands Imm Gran% 0.4 % 10/04/2024 8:58 PM EDT [facility] Comment:Automated count of m etamyelocytes, myelocytes and promyelocytes. Lymph Percent 23.2 % 10/04/2024 8:58 PM EDT [facility] [place] Percent 8.8 % 10/04/2024 8:58 PM EDT [facility] Eos Percent 0.9 % 10/04/2024 8:58 PM EDT [facility] Baso Percent 0.2 % 10/04/2024 8:58 PM EDT [facility] Neut # 7.6(H) 1.6 - 6.1 x10(3)/[facility] 10/04/2024 8:58 PM EDT [facility] Comment:Neutrophils equals s egs plus bands IMMGRAN# 0.0 0.0 - 0.1 x10(3)/[facility] 10/04/2024 8:58 PM EDT [facility] Comment:Automated count of m etamyelocytes, myelocytes and promyelocytes. An absolute IG <0.1 is reported as 0.0. Lymph # 2.7 1.2 - 3.9 x10(3)/[facility] 10/04/2024 8:58 PM EDT [facility] [place] # 1.0(H) 0.3 - 0.9 x10(3)/[facility] 10/04/2024 8:58 PM EDT [facility] Eos# 0.1 0.0 - 0.5 x10(3)/[facility] 10/04/2024 8:58 PM EDT [facility] Baso # 0.0 0.0 - 0.1 x10(3)/[facility] 10/04/2024 8:58 PM EDT [facility] Blood VENOUS BLOOD / Unknown Venipuncture / Unknown 10/04/2024 8:51 PM EDT 10/04/2024 8:55 PM EDT Gomez Bailey SALES PROCESS MANAGER HEMATOLOGY ORDERABLES Makayla fournier Result [facility] [address] [place], [place] [id number] * (ABNORMAL) NT PROBNP (10/04/2024 8:51 PM EDT) NT Pro-BNP 477(H) <=192 pg/mL 10/04/2024 9:26 PM EDT [facility] Blood VENOUS BLOOD / Unknown Venipuncture / Unknown 10/04/2024 8:51 PM EDT 10/04/2024 8:55 PM EDT Narrative [facility] - 10/04/2024 9:26 PM EDT An NT pro-BNP level less than 300 pg/mL in any patient, regardless of age, effectively rules out acute CHF with a 99% negative predictive value. Ingestion of radha doses of biotin (>5 mg/day) taken within 8 hours of drawing blood sample can interfere with this immunoassay test. Gomez Bailey APRN CHEMISTRY ORDERABLES Final Result [facility] [address] [place], [place] [id number] * BASIC METABOLIC PANEL (10/04/2024 8:51 PM EDT) Sodium 138 136 - 145 mmol/L 10/04/2024 9:16 PM EDT [facility] Potassium 3.5 3.5 - 5.0 mmol/L 10/04/2024 9:16 PM EDT [facility] Chloride 102 98 - 107 mmol/L 10/04/2024 9:16 PM EDT [facility] Total CO2 25 22 - 29 mmol/L 10/04/2024 9:16 PM EDT [facility] Anion Gap 11 7 - 16 mmol/L 10/04/2024 9:16 PM EDT [facility] Calcium 9.1 8.6 - 10.4 mg/dL 10/04/2024 9:16 PM EDT [facility] Glucose Lvl 70 70 - 99 mg/dL 10/04/2024 9:16 PM EDT [facility] BUN 15 6 - 20 mg/dL 10/04/2024 9:16 PM EDT [facility] Creatinine 0.99 0.51 - 1.30 mg/dL 10/04/2024 9:16 PM T [facility] eGFR (CKD-EPIcr 2020) 70 >=60 mL/min/1.7 3 m2 10/04/2024 9:16 PM EDT [facility] Comment:Estimated GFR was ca lculated using the CKD-EPIcr (2020) equation refit without race. The equation is recommended by the National Kidney Foundation - [place] [employer] of Nephrology Task Force. Blood VENOUS BLOOD / Unknown Venipuncture / Unknown 10/04/2024 8:51 PM EDT 10/04/2024 8:55 PM EDT Gomez J Fichner SALES PROCESS MANAGER CHEMISTRY ORDERABLES Final Result [facility] [address] [place] [address] * EK EKG 12 LEAD (10/04/2024 8:46 PM EDT) Anatomical Region Laterality Modality Electrocardiogra phy 10/04/2024 8:56 PM EDT Impressions 10/04/2024 10:[address] [facility] Test Date: 2024-10-04 Pat Name: LUIS FREY Department: DEPID Room: 11 Gender: Female Video Specialist: : 1975 Requested By: GOMEZ Ron Order Number: [id number] Reading MD: Reji Kay Measurements Intervals [place] Rate: 89 P: 57 WI: 156 QRS: 12 QRSD: 87 T: 52 QT: 362 QTc: 442 Interpretive Statements SINUS RHYTHM Electronically Signed On 10-04-2024 22:17:12 EDT by Reji Kay Narrative Procedure Note Reji Kay MD - 10/04/[address] [facility] Test Date: 2024-10-04 Pat Name: LUIS FREY Department: DEPID Room: 11 Gender: Female Video Specialist: : 1975 Requested By: GOMEZ Rno Order Number: [id number] Reading MD: Reji Kay Measurements Intervals [place] Rate: 89 P: 57 WI: 156 QRS: 12 QRSD: 87 T: 52 QT: 362 QTc: 442 Interpretive Statements SINUS RHYTHM Electronically Signed On 10-04-2024 22:17:12 EDT by Reji Kay us Gomez Bailey SALES PROCESS MANAGER IMG ECG ORDERABLES Final R esult * GLUCOSE METER POC (10/04/2024 8:46 PM EDT) Glucose Meter POC 89 70 - 100 mg/dL 10/04/2024 8:48 PM EDT [facility] Sample Type Capillary 10/04/2024 8:48 PM EDT [facility] Patient Status Non-Critical Patient 10/04/2024 8:48 PM EDT [facility] Blood BLOOD SPECIMEN / Unknown 10/04/2024 8:46 PM EDT 10/04/2024 8:48 PM EDT Marck Ellis MD POINT OF CARE TEST ORDERABLES F inal Result [facility] [address] [place] [address] from Last 3 Months Insurance [place] [address] MEDICA[place] [address] [place] Advance Directives For more information, please contact: [phone] * Full Code (Latest Code Status on File) Date Activated Date Inactivated Comments 10/15/2023 10:57 PM 10/19/2023 8:06 PM * Full Code Date Activated Date Inactivated Comments 10/15/2023 10:56 PM 10/15/2023 10:57 PM * Full Code Date Activated Date Inactivated Comments 10/15/2023 6:01 PM 10/15/2023 10:56 PM * Full Code Date Activated Date Inactivated Comments 08/25/2019 3:12 PM 08/26/2019 9:48 PM Care Teams Acid Adjuster Relationship Specialty Start Date End Date Aime Atkinson MD [address] [place] [address] [address] [place] [address] PCP - General Internal Medicine 04/29/16 Nel Levine MD [address] [place] [address] Physician Internal Medicine-Rheumatology 10/08/16
--- OUTSIDE RECORDS SUMMARY | 2024-10-26 10:25 | XMS_ITS | Encounter Summary ---
Author Organization [facility] [place] [address] Care Team Providers Care Appraisal Manager Name Role Phone Aime Atkinson MD Primary Care Provider [phone] Nel Levine MD Unavailable [phone] Encounter Details Date Type Department Care Team (Latest Contact Info) Description 10/04/2024 Travel Social History Tobacco Use Types Packs/Day Years Used Date Smoking Tobacco: Former Cigarettes 0.5 16.6 0 08/25/2007 - 03/23/2024 Smokeless Tobacco: Never Alcohol Use Standard Drinks/Week Comments No 0 (1 standard drink = 0.6 oz pur e alcohol) [facility] Utilities Answer Date Recorded In [...] Date Recorded PHQ-2 Total Score 0 10/16/2023 [facility] of Occupat ional Health - Occupational Stress [...] money to get more. Never true 10/16/2023 [facility] IP Transportation Answer D ate Recorded [...] 8:28 PM EDT Jennifer Post RN * [place] Suicide Severity Rating Scale (Q shift for [...] on filedocumented in this encounter Care Teams Appraisal Manager Relationship Specialty Start Date End Date Aime Atkinson MD [address] [place] [address] PCP - General Internal Medicine 04/29/16 Nel Levine MD [address] [address] Physician Internal Medicine-Rheumatology 10/08/16 documented as of this encounter
== END 2024-10-25 23:59 | disposition home or self-care (01) ==
LOC: LAB.DROPOF 10-26 10:22
PROVIDERS: PCP Internal Medicine; Visit Provider Internal Medicine
DX: S81.802A Unspecified open wound, left lower leg, initial encounter (principal); L08.9 Local infection of the skin and subcutaneous tissue, unspecified
CPT/HCPCS: 87070; 87205

== ENCOUNTER 2025-01-05 12:42 | Outpatient (CLI) | payer MEDICARE, MEDICAID, SELFPAY ==
[2025-01-05 17:38] LABS: Hematocrit 41.7 % (37.0-47.0); Hemoglobin 13.8 g/dL (12.2-16.2); Immature Granulocytes % 0.5 %; Mean Corpuscular HGB Conc 33.1 g/dL (31.8-35.4); Mean Corpuscular Hemoglobin 31.2 pg (27.0-31.2); Mean Corpuscular Volume 94.1 fl (81-99); Nucleated Red Blood Cells % 0 %; Platelet Count 352 K/mm3 (142-424); Red Blood Count 4.43 M/mm3 (4.20-5.40); Red Cell Distribution Width-SD 43.1 fL; White Blood Count 11.1 K/mm3 (4.8-10.8)
[2025-01-05 17:46] LABS: INR 1.01 (0.9-1.1); Prothrombin Time 11.2 seconds (10.1-12.5)
[2025-01-05 18:02] LABS: Alanine Aminotransferase 24 U/L (12-78); Albumin Level 4.3 g/dl (3.5-5.0); Albumin/Globulin Ratio 1.7 (1.1-1.8); Alkaline Phosphatase 101 U/L (38-126); Anion Gap 14.8 mEq/L (5-15); Aspartate Amino Transferase 24 U/L (14-36); Bilirubin,Total 0.4 mg/dl (0.2-1.3); Blood Urea Nitrogen 26 mg/dl (7-17); Calcium 9.4 mg/dl (8.4-10.2); Carbon Dioxide 35 mmol/L (22.0-30.0); Chloride 92 mmol/L (98-107); Creatinine,Serum 1.10 mg/dl (0.52-1.04); Estimated Glomerular Filt Rate 53 ml/min (>60); GFR (African American) 64 ML/MIN (>60); Globulin 2.5 g/dL (1.3-3.2); Glucose 54 mg/dl (74-100); Potassium 3.8 mmoL/L (3.5-5.1); Sodium 138 mmol/L (136-145); Total Protein,Serum 6.8 g/dl (6.3-8.2)
[2025-01-05 18:16] LABS: Free T4 (Free Thyroxine) 1.11 ng/dl (0.78-2.19)
[2025-01-07 08:17] LABS: Triiodothyronine (T3) Free 3.7 pg/mL (2.0-4.4)
--- OUTSIDE RECORDS SUMMARY | 2025-01-09 12:47 | XMS_ITS | Encounter Summary ---
Author Organization [facility] Address [address] [place] [address] Care Team Providers Care Professor Of Visual Arts Name Role Phone Aime Atkinson MD Primary Care Provider [phone] Encounter Details Date Type Department Care Team (Late st Contact Info) Description 11/09/2024 Orders Only [facility] Medicine Specialties [address] [place] [id number] Provider, [place] [phone] Social History Tobacco Use Types Packs/Day Years [...] you have a drink containing alcohol? Never 11/09/2024 Q2: How many drinks containi ng alcohol do you have on a typical day when you are drinking? Patient does not drink Q3: How often do you have si x or more drinks on one occasion? Never 11/09/2024 Comments Unknown Sex and Gender Information Value Date Recorded Sex Assigned at Not on file Legal Sex Female 8:24 PM EDT Gender Identity Not on file Sexual Orientation Not on file documented as of this encounter Functional Status * AUDIT-C Score Answer Date of Assessment Author 0 11/09/2024 9:34 AM EDT Mellissa Gordon * Question Answer Date of Assessment Author Q1: How often do you have a drink containing alcohol? Never 11/09/2024 9:34 AM EDT Jerri Gordon Q2: How many drinks containing alcohol do you have on a typical day when you are drinking? Patient does not drink 11/09/2024 9:34 AM EDT Mellissa Gordon Q3: How often do you have six or more drinks on one occasion? Never 11/09/2024 9:34 AM EDT Jerri Gordon documented as of this encounter Plan of Treatment Upcoming Encounters Date Type Department Care Team (Late st Contact Info) Description 02/07/2025 10:30 AM EST Office Visit [facility] Medicine Specialties [address] [place] [address] Melisa Jeffers MD [address] [place] [address] documented as of this encounter Procedures Procedure Name Priority Date/Time Associated Diagnosis Comments URINALYSIS MICROSCOPIC FOR UA REFLEX Routine 11/09/2024 12:52 PM EDT COMPLETE METABOLIC PROFILE (CMP) Routine 11/09/2024 12:52 PM EDT HP LINK LIPID PANEL Routine 11/09/2024 1 2:52 PM EDT PROTEIN, URINE, RANDOM WITH CREATININE Routine 11/09/2024 12:52 PM EDT VITAMIN D 25 HYDROXY Routine 11/09/2024 12:52 PM EDT SEDIMENTATION RATE, AUTOMATED Routine 11/09/2024 12:52 PM EDT CBC WITH AUTO DIFFERENTIAL Routine 11/09/2024 12:52 PM EDT RHEUMATOID FACTOR, PLASMA Routine 2024 12:52 PM EDT ANTINUCLEAR ANTIBODY ([place]) WITH HEP-2 SUBSTRATE, IGG BY IFA (SO) Routine 11/09/2024 12:52 PM EDT TSH Routine 11/09/2024 12:52 PM EDT VITAMIN B12, SERUM Routine 11/09/2024 12 :52 PM EDT documented in this encounter Results * HM Lipid Panel (11/09/2024 12:52 PM EDT) us Historical Provider HEALTH MAINTENANCE Final Res ult * CBC and Differential (11/09/2024 12:52 PM EDT) Blood Venous blood specimen / Unknown Result [facility] BLOOD ORDERABLES Final R esult * Sedimentation Rate, Automated (11/09/2024 12:52 PM EDT) Blood Venous blood specimen / Unknown Result [facility] BLOOD ORDERABLES Final R esult * COMPLETE METABOLIC PROFILE (CMP) (11/09/2024 12:52 PM EDT) Result [facility] BLOOD ORDERABLES Final R esult * Protein, Random, Urine with Creatinine (11/09/2024 12:52 PM EDT) Urine Urine specimen obtained by clean catch procedure / Unknown Result [facility] URINE ORDERABLES Final R esult * Vitamin B12, Serum (11/09/2024 12:52 PM EDT) Blood Venous blood specimen / Unknown Result [facility] BLOOD ORDERABLES Final R esult * Vitamin D 25 Hydroxy (11/09/2024 12:52 PM EDT) Blood Venous blood specimen / Unknown Result [facility] BLOOD ORDERABLES Final R esult * Thyroid Stimulating Hormone, Plasma (11/09/2024 12:52 PM EDT) Blood Venous blood specimen / Unknown Result [facility] BLOOD ORDERABLES Final R esult * Urinalysis Microscopic Examination (11/09/2024 12:52 PM EDT) Urine Urine specimen obtained by clean catch procedure / Unknown [facility] Provider LAB URINE ORDERABLES Final R esult * Rheumatoid Factor, Plasma (11/09/2024 12:52 PM EDT) Blood Venous blood specimen / Unknown Result [facility] Provider LAB BLOOD ORDERABLES Final R esult * Antinuclear Antibody ([place]), HEp-2, IgG (11/09/2024 12:52 PM EDT) Blood Venous blood specimen / Unknown Result [facility] BLOOD ORDERABLES Final R esult documented in this encounter Visit Diagnoses Not on filedocumented in this encounter Additional Health Concerns Assessment Noted Time A fall risk assessment has been complete d for the patient 11/09/2024 9:44 AM EDT A Body Mass Index follow-up plan has been documented for the patient 11/09/2024 3:47 PM EDT documented as of this encounter Care Teams Professor Of Visual Arts Relationship Specialty Start Date End Date Aime Atkinson MD [address] [place] [address] [address] [place] [address] PCP - General 08/03/20 documented as of this encounter
--- OUTSIDE RECORDS SUMMARY | 2025-01-09 12:47 | XMS_ITS | Clinical Summary ---
Author Organization [facility] Address [address] [place] [address] Care Team Providers Care Broom Maker Name Role Phone Aime Atkinson MD Primary Care Provider [phone] Allergies Active Allergy Reactions Criticality Noted Date Comments Duloxetine Hcl Unknown - Patient states they do not know rxn details Low 07/01/2018 Gabapentin Unknown - Patient states they do not know rxn details Low 07/01/2018 Pregabalin Vomiting High 10/12/2024 Paroxetine Unknown - Patient states they do not know rxn details Low 07/01/2018 Spironolactone Diarrhea,Headache High 07/13/2020 Tape/Bandaid Adhesive Rash Medium 10/12/2024 Skin comes off Medications albuterol 108 (90 Base) MCG/ACT inhaler Inhale 2 puffs every 6 hours as needed. Active amphetamine-dextr oamphetamine (Adderall) 20 MG tablet Take 1 tablet by mouth 3 times a day. 3 Active doxycycline (Vibramycin) 100 MG capsule 5 Active folic acid (Folvite) 1 MG tablet Take 1 tablet by mouth daily. 9 Active furosemide (Lasix) 80 MG tablet 5 Active HYDROcodone-aceta minophen ([place]) 10-325 MG tablet 5 Active LORATADINE PO LORATADINE D 10 MG AT BEDTIME 5 Active losartan (Cozaar) 25 MG tablet Take 1 tablet by mouth daily. 5 Active methylPREDNISolon e (Medrol) 4 MG tablet 5 Active rosuvastatin [...] Take 1 tablet by mouth daily. Active sulfamethoxazole- trimethoprim (Bactrim DS) 800-160 MG tablet 5 Active naproxen sodium (Aleve) 220 MG tablet Take 1 tablet by mouth as needed for mild pain. Active senna (Senokot) 8.6 MG tablet Take 2 tablets by mouth 1 time each day. Active hydroxychloroquin e (Plaquenil) 200 MG tabletIndications :Chronic inflammatory arthritis Take 1 tablet by mouth 2 times a day. 180 tablet 1 5 05/08/19 26 Active Active Problems Problem Noted Date Diagnosed Date Chronic inflammatory arthritis 11/09/2024 Resolved Problems Problem Noted Date Diagnosed Date Resolved Date Difficulty with speech 11/09/202411/09 Chronic heart failure with p reserved ejection fraction 10/16/2023 11/09/2024 PAD (peripheral artery disease) 10/16/2023 11/09/2024 Spinal stenosis of lumbar region 12/23/2022 11/09/2024 Spinal enthesopathy 12/23/2022 11/10/19 Pain of both shoulder joints 12/23/2022 11/09/2024 Backache 11/14/2020 11/09/2024 Suspected COVID-19 virus infection 08/24/2019 11/09/2024 Arthralgia of multiple joints 12/24/2017 11/09/2024 Hair loss 12/24/2017 11/09/2024 Chronic fatigue and malaise 10/13/2014 11/09/2024 Abnormal weight loss 04/24/2014 025 Heartburn 04/24/2014 11/09/2024 Liver lesion 04/24/2014 11/09/2024 Arteriosclerosis of coronary artery 03/07/2013 11/09/2024 Rheumatoid arthritis involving multiple sites 03/07/20 13 11/09/2024 Encounters Date Type Department Care Team Description 11/09/2024 9:00 AM EDT Office Visit [facility] Medicine Specialties [address], [address] [place] [phone] Melisa Jeffers MD Chronic inflammatory arthritis (Primary Dx); Polyarthralgia 11/09/2024 Orders Only [facility] Medicine Specialties [address], [address] [place] [phone] Provider, Historical 11/09/2024 Travel 10/12/2024 10:50 AM EDT - 10/12/2024 11:59 PM EDT Hospital Encounter [facility] Radiology [address], [address] [place] [phone] Polyarthralgia Discharge Disposition: Home or Self Care 10/12/2024 9:00 AM EDT Consult [facility] Medicine Specialties [address], [address] [place] [address] Melisa Jeffers MD Polyarthralgia (Primary Dx); Ankylosing spondylitis of multiple sites in spine ([facility]/HCC) 10/12/2024 Travel from Last 3 Months Immunizations Immunization Administration Dates Next Due Hep B, adult 07/28/1997,11/17/1996,10/03/1996 Influenza, injectable, MDCK, preservative free, quadrivalent 01/26/2017 Influenza, seasonal, injectable 01/29/2009,04/26 Influenza, seasonal, injecta ble, preservative free 12/28/2023 Tdap 04/22/2022,05/01/2011,04/12/2010 Family History Medical History Relation Name Comments [...] Sign Reading Time Taken Comments Blood Pressure 128/82 11/09/2024 9:33 AM EDT Pulse 72 11/09/2024 9:33 AM EDT Temperature 36.7 C (98 F) 10/12/2024 9:21 AM EDT Respiratory Rate 16 10/12/2024 9:21 AM EDT Oxygen Saturation 98% 11/09/2024 9:33 AM EDT Inhaled Oxygen Concentration - - Weight 64.8 kg (142 lb 13.7 oz) 11/09/2024 9:33 AM EDT Height 154.9 cm (5' 1 ) 11/09/2024 9:33 AM EDT Body Mass Index 26.99 11/09/2024 9:33 AM EDT Plan of Treatment Upcoming Encounters Date Type Department Care Team (Late st Contact Info) Description 02/07/2025 10:30 AM EST Office Visit [facility] Medicine Specialties [address], [address] [place] [address] Melisa Jeffers MD [address] [place] [address] Health Maintenance Due Date Last Done Comments [facility]-HIV Screening 1976 [facility]-Medicare Annual Wellness (AWV) 1975 [facility]-Infant/Child/Adol SDOH Screenings 1976 [facility]- SDOH Screenings 1994 [facility]-Adult SDOH Screenings 1994 CT Colonography 2021 Colonoscopy 2021 FIT-DNA 2021 FIT 2021 FOBT 2021 Sigmoidoscopy 2021 [facility]-Colorectal Cancer Screening 2021 [id number] Vaccine ( season) 2024 [facility]-Influenza Vaccine (#1) 11/21/202412/27, 01/26/2017, 01/29/2009, Additional history exists [facility]-Depression Screening 10/12/2025 10/12/2024 [facility]-Zoster Vaccines (1 of 2) 2026 [facility]-DTaP,Tdap,and Td Vaccines (4 - Td or Tdap) 04/22/2032 04/22/2022, 05/01/2011, 04/12/2010 [facility]-Hepatitis B Vaccines Completed 998, 11/17/1996, 10/03/1996 [facility]-Hepatitis C Screening Completed 10/12/2024, 11/2017 [facility]-Obesity Intervention Completed 11/09/2024, 09/21 HPV Vaccines Aged Out No longer eligi [...] Procedure Name Priority Date/Time Associated Diagnosis Comments HP LINK LIPID PANEL Routine 11/09/2024 1 2:52 PM EDT CBC WITH AUTO DIFFERENTIAL Routine 11/09/2024 12:52 PM EDT SEDIMENTATION RATE, AUTOMATED Routine 11/09/2024 12:52 PM EDT COMPLETE METABOLIC PROFILE (CMP) Routine 11/09/2024 12:52 PM EDT PROTEIN, URINE, RANDOM WITH CREATININE Routine 11/09/2024 12:52 PM EDT VITAMIN B12, SERUM Routine 11/09/2024 12 :52 PM EDT VITAMIN D 25 HYDROXY Routine 11/09/2024 12:52 PM EDT TSH Routine 11/09/2024 12:52 PM EDT URINALYSIS MICROSCOPIC FOR UA REFLEX Routine 11/09/2024 12:52 PM EDT RHEUMATOID FACTOR, PLASMA Routine 11/09/2024 12:52 PM EDT ANTINUCLEAR ANTIBODY (WARREN) WITH HEP-2 SUBSTRATE, IGG BY IFA (SO) Routine 11/09/2024 12:52 PM EDT XR SHOULDER LEFT 2+ VIEWS Routine 10/12/2024 [...] spondylitis of multiple sites in spine (CMS/HCC) RHEUMATOID FACTOR, PLASMA Routine 10/12/2024 10:56 AM EDT Polyarthralgia CYCLIC CITRUL PEPTIDE ANTIBODY IGG Routine 10/12/2024 10:56 AM EDT Polyarthralgia ANTINUCLEAR ANTIBODY (WARREN) WITH HEP-2 SUBSTRATE, IGG BY IFA (SO) Routine 10/12/2024 10:56 AM EDT Polyarthralgia HLA B27 TYPING Routine 10/12/2024 10:56 AM EDT Polyarthralgia Ankylosing spondylitis of multiple sites in spine ([facility]) CBC WITH AUTO DIFFERENTIAL Routine 10/12/2024 10:56 [...] Polyarthralgia from Last 3 Months Results * Urinalysis Microscopic Examination (11/09/2024 12:52 PM EDT) Urine Urine specimen obtained by clean catch procedure / Unknown Result [facility] Provider LAB URINE ORDERABLES Final R esult * COMPLETE METABOLIC PROFILE (CMP) (11/09/2024 12:52 PM EDT) Result [facility] Provider LAB BLOOD ORDERABLES Final R esult * HM Lipid Panel (11/09/2024 12:52 PM EDT) [facility] Provider HEALTH MAINTENANCE Final Res ult * Protein, Random, Urine with Creatinine (11/09/2024 12:52 PM EDT) Urine Urine specimen obtained by clean catch procedure / Unknown Result [facility] Provider LAB URINE ORDERABLES Final R esult * Vitamin D 25 Hydroxy (11/09/2024 12:52 PM EDT) Blood Venous blood specimen / Unknown Result [facility] Provider LAB BLOOD ORDERABLES Final R esult * Sedimentation Rate, Automated (11/09/2024 12:52 PM EDT) Only the most recent of2 resultswithin the time period is included. Blood Venous blood specimen / Unknown Result [facility] Provider LAB BLOOD ORDERABLES Final R esult * CBC and Differential (11/09/2024 12:52 PM EDT) Only the most recent of2 resultswithin the time period is included. Blood Venous blood specimen / Unknown Result [facility] LAB BLOOD ORDERABLES Final R esult * Rheumatoid Factor, Plasma (11/09/2024 12:52 PM EDT) Only the most recent of2 resultswithin the time period is included. Blood Venous blood specimen / Unknown Result [facility] LAB BLOOD ORDERABLES Final R esult * Antinuclear Antibody (WARREN), HEp-2, IgG (11/09/2024 12:52 PM EDT) Only the most recent of2 resultswithin the time period is included. Blood Venous blood specimen / Unknown Result [facility] Provider LAB BLOOD ORDERABLES Final R esult * Thyroid Stimulating Hormone, Plasma (11/09/2024 12:52 PM EDT) Blood Venous blood specimen / Unknown Result [facility] LAB BLOOD ORDERABLES Final R esult * Vitamin B12, Serum (11/09/2024 12:52 PM EDT) Blood Venous blood specimen / Unknown us Historical Provider LAB BLOOD ORDERABLES Final R esult * XR Hand and Wrist Bilateral 2 [...] COMMUNICATION: Per this written report. Drafted by Alexanedr Mixon MD on 10/12/2024 12:02 PM Final [...] - 19 AU/mL 10/15/2024 2:18 PM EDT [facility] ([facility]) Serine Proteinase 3 (PR3) Ab, IgG 0 0 - 19 AU/mL 10/15/2024 2:18 PM EDT [facility] ([facility]) ANCA IFA Titer <1:20 <1:20 10/15/2024 2:18 PM EDT [facility] ([facility]) ANCA IFA Pattern None Detected None Detected 10/15/2024 2:18 PM EDT [facility] ([facility]) Blood Venous blood specimen / Unknown Venipuncture / Unknown 10/12/2024 10:56 AM EDT 10/12/2024 10:59 AM EDT Narrative [facility] ([facility]) - 10/15/2024 2:18 PM EDT INTERPRETIVE [...] collagen vascular disease or arthritis. Performed By: [facility] [address] [place] [id number] Mechanical Design Technician: Arnoldo Butler MD, PhD CLIA Number: [id number] Melisa Jeffers MD LAB BLOOD ORDERABLES Final Re sult [facility] [facility]) [address] [place] [address] * DNA Isolation and Hold (HLA) (10/12/2024 10:56 AM EDT) Blood Venous blood specimen / Unknown Venipuncture / Unknown 10/12/2024 10:56 AM EDT 10/12/2024 10:59 AM EDT Melisa Jeffers MD LAB MOLECULAR DIAGNOSTICS ORD ERABLES Final Result [facility] [address] [place] [address], * Mukherjee (DIDI) Antibody, IgG (10/12/2024 10:56 AM EDT) Mukherjee (DIDI) Antibody, IgG 0 0 - 40 AU/mL 10/14/2024 3:16 PM EDT [facility] ([facility]) Serum 10/12/2024 10:5 6 AM EDT 10/12/2024 10:59 AM EDT Narrative [facility] ([facility]) - 10/14/2024 3:16 [...] associations with SLE clinical manifestations. Performed By: [facility] [address] [place] [address] Mechanical Design Technician: Arnoldo Butler MD, PhD CLIA Number: [id number] Melisa Jeffers MD LAB REF LAB BLOOD AND FLUID O RD Final Result [facility] ([facility]) [address] [place] [address] * SSA 52 and 60 (Ro) (DIDI) Antibodies, IgG (10/12/2024 10:56 AM EDT) SSA-52 (RO52) (DIDI) Antibody, IgG 0 0 - 40 AU/mL 10/14/2024 3:16 PM EDT [facility] ([facility]) SSA-60 (RO60) (DIDI) Antibody, IgG 1 0 - 40 AU/mL 10/14/2024 3:16 PM EDT [facility] ([facility]) Serum 10/12/2024 10:5 6 AM EDT 10/12/2024 10:59 AM EDT Narrative [facility] ([facility]) - 10/14/2024 3:16 [...] AU/mL or Greater .......... Positive Performed By: [facility] [address] [place] [address] Mechanical Design Technician: Arnoldo Butler MD, PhD CLIA Number: [id number] us Melisa Jeffers MD LAB REF LAB BLOOD AND FLUID O RD Final Result [facility] ([facility]) [address] [place] [address] * SSB (La) (DIDI) Antibody, IgG (10/12/2024 10:56 AM EDT) SSB (LA) (DIDI) Antibody, IgG 1 0 - 40 AU/mL 10/14/2024 11:49 AM EDT [facility] ([facility]) Serum Venous blood specimen / Unknown 10/12/2024 10:56 AM EDT 10/12/2024 10:59 AM EDT Narrative [facility] ([facility]) - 10/14/2024 11:49 AM EDT INTERPRETIVE INFORMATION: [...] (PSS) also have this antibody. Performed By: [facility] [address] [place] [address] Mechanical Design Technician: Arnoldo Butler MD, PhD CLIA Number: [id number] Melisa Jeffers MD LAB BLOOD ORDERABLES Final Re sult [facility] ([facility]) [address] [place] [address] * HLA B27 Typing (10/12/2024 10:56 AM EDT) Blood Venous blood specimen / Unknown Venipuncture / Unknown 10/12/2024 10:56 AM EDT 10/12/2024 10:59 AM EDT Melisa Jeffers MD LAB BLOOD ORDERABLES Final Re sult [facility] [address] [place] [address], * Hepatitis C Antibody (10/12/2024 10:56 AM EDT) Pathologist [facility] Hepatitis C Antibody Negative Negative 10/12/2024 12:24 PM EDT [facility] Blood Venous blood specimen / Unknown Venipuncture / Unknown 10/12/2024 10:56 AM EDT 10/12/2024 10:59 AM EDT Melisa Jeffers MD LAB BLOOD ORDERABLES Final Re sult Performing Organization Address [facility] [place] [address] * Cyclic Citrul Peptide Antibody IgG (10/12/2024 10:56 AM EDT) [facility] Cyclic Citrul Peptide Antibody IgG <5.0 <=5.0 U/mL 10/12/2024 2:04 PM EDT [facility] Blood Venous blood specimen / Unknown Venipuncture / Unknown 10/12/2024 10:56 AM EDT 10/12/2024 10:59 AM EDT Melisa Jeffers MD LAB BLOOD ORDERABLES Final Re sult Performing Organization Address [facility] [place] [address] * Double-Stranded DNA (dsDNA) Antibody, IgG by IFA (10/12/2024 10:56 AM EDT) [facility] Double-Strande d DNA (dsDNA) Ab IgG IFA <1:10 <1:10 10/14/2024 11:43 PM EDT [facility] (Advanced Onc[facility]) Blood Venous blood specimen / Unknown Venipuncture / Unknown 10/12/2024 10:56 AM EDT 10/12/2024 10:59 AM EDT Narrative [facility] ([facility]) - 10/14/2024 11:43 PM [...] recommendations for testing may be found at https://[employer]/content/xmvfyxygng-unwwlz-chvbxnfu. Performed By: [facility] [address] [place] [id number] Mechanical Design Technician: Arnoldo Butler MD, PhD CLIA Number: [id number] Melisa Jeffers MD LAB BLOOD ORDERABLES Final Re sult [facility] ([facility] [address] [place] [address] * Quantiferon TB Gold Plus (10/12/2024 10:56 AM EDT) [facility] Quantiferon TB Gold Plus Result Negative Negative 10/13/2024 5:02 PM EDT [facility] TB Nill Value 0.0414 IU/mL 10/13/2024 5:02 PM EDT [facility] TB Antigen 1 -0.0041 IU/mL 10/13/2024 5:02 PM EDT [facility] TB Antigen 2 0.0044 IU/mL 10/13/2024 5:02 PM EDT [facility] TB Mitogen 9.9586 IU/mL 10/13/2024 5:02 PM EDT [facility] Blood Venous blood specimen / Unknown Venipuncture / Unknown 10/12/2024 10:56 AM EDT 10/12/2024 10:59 AM EDT Narrative [facility] - 10/13/2024 5:02 PM EDT Responses to the Mitogen positive control and occasionally to TB antigen can be above the assay range. For calculation purposes: IFN-gamma values > 10 IU/mL are handled as 10 IU/mL. us Melisa Jeffers MD LAB BLOOD ORDERABLES Final Re sult Performing Organization Address [facility] Co de Phone Number [facility] [address] [place] [address] * Hepatitis B Surface Antigen (10/12/2024 10:56 AM EDT) Hepatitis B Surf Antigen Negative Negative 10/12/2024 12:18 PM EDT [facility] Blood Venous blood specimen / Unknown Venipuncture / Unknown 10/12/2024 10:56 AM EDT 10/12/2024 10:59 AM EDT Melisa Jeffers MD LAB BLOOD ORDERABLES Final Re sult Performing Organization Address [facility] [place] [address] * C3 Complement (10/12/2024 10:56 AM EDT) C3 Complement 116 84 - 166 mg/dL 10/12/2024 12:14 PM EDT [facility] Blood Venous blood specimen / Unknown Venipuncture / Unknown 10/12/2024 10:56 AM EDT 10/12/2024 10:59 AM EDT us Melisa Jeffers MD LAB BLOOD ORDERABLES Final Re sult Performing Organization Address City/[facility] Co de Phone Number [facility] [address] [place] [address] * C4 Complement (10/12/2024 10:56 AM EDT) C4 Complement 25 13 - 36 mg/dL 10/12/2024 12:14 PM EDT [facility] Blood Venous blood specimen / Unknown Venipuncture / Unknown 10/12/2024 10:56 AM EDT 10/12/2024 10:59 AM EDT us Melisa Jeffers MD LAB BLOOD ORDERABLES Final Re sult Performing Organization Address City/[facility]/ZIP Co de Phone Number [facility] [address] [place] [address] * C-reactive protein (10/12/2024 10:56 AM EDT) Pathologist [facility] CRP, Plasma <3.0 <=8.0 mg/L 10/12/2024 12:15 PM EDT [facility] Blood Venous blood specimen / Unknown Venipuncture / Unknown 10/12/2024 10:56 AM EDT 10/12/2024 10:59 AM EDT Narrative [facility] - 10/12/2024 12:15 PM EDT This CRP test is appropriate for assessment of infection, systemic inflammation and/or tissue injury. To assess cardiovascular disease risk order high sensitivity CRP (CRPH). us Melisa Jeffers MD LAB BLOOD ORDERABLES Final Re sult Performing Organization Address [facility] Co de Phone Number [facility] [address] [place] [address] * (ABNORMAL) Comprehensive metabolic panel (10/12/2024 10:56 AM EDT) Pathologist [facility] Glucose, Plasma 77 74 - 99 mg/dL 10/12/2024 12:15 PM EDT [facility] BUN, Plasma 28(H) 7 - 21 mg/dL 10/12/2024 12:15 PM EDT [facility] Creatinine, Plasma 0.91 0.60 - 1.10 mg/dL 10/12/2024 12:15 PM EDT [facility] BUN/Creatinine Ratio 31 10/12/2024 12:15 PM EDT [facility] Sodium, Plasma 140 136 - 145 mmol/L 10/12/2024 12:15 PM EDT [facility] Potassium, Plasma 4.2 3.6 - 4.9 mmol/L 10/12/2024 12:15 PM EDT [facility] Chloride, Plasma 98 97 - 107 mmol/L 10/12/2024 12:15 PM EDT [facility] CO2, Plasma 29 22 - 29 mmol/L 10/12/2024 12:15 PM EDT [facility] Anion Gap 13 6 - 16 mmol/L 10/12/2024 12:15 PM EDT [facility] Total Calcium, Plasma 9.8 8.9 - 10.2 mg/dL 10/12/2024 12:15 PM EDT [facility] Total Protein 7.7 6.3 - 7.9 g/dL 10/12/2024 12:15 PM EDT [facility] Albumin, Plasma 4.8 3.5 - 5.2 g/dL 10/12/2024 12:15 PM EDT [facility] AST, Plasma 25 10 - 35 U/L 10/12/2024 12:15 PM EDT [facility] ALT, Plasma 24 10 - 35 U/L 10/12/2024 12:15 PM EDT [facility] Alkaline Phosphatase, Plasma 87 35 - 104 U/L 10/12/2024 12:15 PM EDT [facility] Total Bilirubin, Plasma 0.2 0.2 - 1.1 mg/dL 10/12/2024 12:15 PM EDT [facility] eGFRcr 78.0 mL/min/1.7 3m*2 10/12/2024 12:15 PM EDT [facility] Comment:Reported eGFRcr in m L/min/1.73m2 is based the CKD-EPI 2020 equation that does not use a race coefficient. Blood Venous blood specimen / Unknown Venipuncture / Unknown 10/12/2024 10:56 AM EDT 10/12/2024 10:59 AM EDT us Melisa Jeffers MD LAB BLOOD ORDERABLES Final Re sult [facility] [address] [place] [address] from Last 3 Months Insurance MEDICARE [place]ICA[place] Care Teams Broom Maker Relationship Specialty Start Date End Date Aime Atkinson MD [facility]0 [facility] [address] [place] [address] PCP - General 08/03/20
== END 2025-01-05 23:59 ==
LOC: LAB.DROPOF 01-09 12:43
PROVIDERS: PCP Internal Medicine; Visit Provider Internal Medicine
DX: E78.5 Hyperlipidemia, unspecified (principal); I10 Essential (primary) hypertension; I25.10 Atherosclerotic heart disease of native coronary artery without angina pectoris; R23.3 Spontaneous ecchymoses
CPT/HCPCS: 80053; 84439; 84481; 85025; 85610